=== PATIENT | male | born 1955 | race Caucasian/White ===

== ENCOUNTER 2016-06-27 15:41 | Emergency (ER) | payer MEDICARE, MEDICAID ==
[2016-06-27 16:15] VITALS: BP 100/81
--- NOTE | 2016-06-27 16:34 | UC ---
Skin Complaint HPI - HPI Summary HPI Summary: 61 YO M WITH SEVERE MR, RESIDENT OF A SENIOR CARE, BROUGHT IN BY STAFF FOR CONSULTATION DUE TO WHITE BUMPS ON HIS BILATERAL HANDS. STAFF MEMBER COMING ON DUTY (FEMALE) STATES THAT HE ALSO HASN'T BEEN ACTING QUITE HIMSELF LATELY AND WONDERS IF HE HAS A PROBLEM WITH HIS TEETH. STATES HE HAS MORE BAD BREATH LATELY, LIKE A DENTAL INFECTION. NO FEVER. PT IS NONVERBAL. ABLE TO WITHDRAW TO PAIN OR DISCOMFORT OR JUST DISLIKE OF BEING TOUCHED. - History of Current Complaint Chief Complaint: UCSkin Time Seen by Provider: 06/27/16 16:15 Stated Complaint: SKIN COMPLAINT Hx Obtained From: Patient - PT WITH SEVERE MR, ONLY ABLE TO GRUNT AND WITHDRAW HANDS, NONVERBAL, Family/Tanning Salon Attendant - CARETAKES FROM HIS SENIOR CARE (TWO FEMALES , BOTH PRESENT DUE TO CHANGE OF SHIFT AT 4PM) Onset/Duration: Sudden Onset, Lasting Hours - JUST NOTED TODAY BY PRISON GUARD SUPERVISOR, Still Present Timing: Constant Onset Severity: Mild Current Severity: Mild Pain Intensity: 0 Pain Scale Used: 0-10 Numeric Location: Hand (Right), Hand (Left) Aggravating: Nothing Alleviating: Nothing Associated Signs & Symptoms: Positive: Negative Related History: Other: - HX ECZEMA - Allergy/Home Medications Allergies/Adverse Reactions: Allergies Allergy/AdvReac Type Severity Reaction Status Date / Time No Known Allergies Allergy Verified 06/27/16 15:56 Review of Systems Constitutional: Other - "NOT QUITE HIMSELF" ENT: Other - BAD BREATH PER PRISON GUARD SUPERVISOR All Other Systems Reviewed And Are Negative: Yes - Comments Additional Review of Systems Comments: PT IS NONVERBAL, UNABLE TO ADDRESS ROS WITH PATIENT, ONLY THROUGH PRISON GUARD SUPERVISOR PMH/Surg Hx/FS Hx/Imm Hx Previously Healthy: No - SEVERE MR - Surgical History Surgical History: Yes Surgery Procedure, Year, and Place: cataract. septoplasty - Family History Known Family History: Positive: Other - PT WITH SEVERE MR, UNABLE TO PROVIDE FAMILY HISTORY - Social History Occupation: Disabled Lives: Prison Alcohol Use: None Substance Use Type: None Smoking Status (MU): Never Smoked Tobacco Physical Exam Triage Information Reviewed: Yes Appearance: Well-Appearing, No Pain Distress, Well-Nourished Vital Signs: Initial Vital Signs Temp 97.8 F 06/27/16 16:05 Resp 16 06/27/16 16:05 BP 100/81 06/27/16 16:05 ABSENT PULSE AND PULSE OX NOTED. MY AUSCULTATION OF PULSE IS 80 AND REGULAR Vital Signs Reviewed: Yes Eyes: Positive: Conjunctiva Clear ENT: Positive: Normal ENT inspection Dental Exam: Normal Neck: Positive: Supple, Nontender Respiratory: Positive: No respiratory distress Cardiovascular: Positive: RRR, Pulses Normal, Brisk Capillary Refill Musculoskeletal: Positive: Strength Intact, ROM Intact Neurological: Positive: Alert, Muscle Tone Normal Psychological: Positive: Other: - USUAL BEHAVIOR WITH STAFF AND WITH ME, PER STAFF Skin: Positive: significant lesion(s) - MULTIPLE WHITE, FIRM 2-3MM LESIONS ON BILAT HANDS. SCATTERED EXCORIATED PATCHES ON FOREARMS AND HANDS. NO RED STREAKS, NONTENDER, NO SIGN OF INFECTION, NO SIGN OF TRAUMA Course/Dx - Differential Diagnoses - Skin Complaint Differential Diagnoses: Cellulitis, Drug Rash, Eczema, Scabies, Tinea, Viral Exanthem, Other - WARTS - Diagnoses Provider Diagnoses: HAND LESIONS, POSSIBLE WARTS. ECZEMA Discharge - Discharge Plan Condition: Stable Disposition: HOME Prescriptions: Hydrocortisone 1% CREAM(NF) 1 applic TOPICAL TID #30 gm Patient Education Materials: Eczema (ED), Common Wart (ED) Referrals: Jus Chairez DO [Primary Care Provider] - Additional Instructions: See Consultation Report for additional written recommendations.
== END 2016-06-27 16:59 | disposition home or self-care (01) ==
LOC: UCCORT 15:41
DX: L98.9 Disorder of the skin and subcutaneous tissue, unspecified (principal); L30.9 Dermatitis, unspecified; F80.9 Developmental disorder of speech and language, unspecified; F72 Severe intellectual disabilities
CPT/HCPCS: 99212; G0463

== ENCOUNTER 2016-11-14 08:17 | Emergency (ER) | payer MEDICARE, MEDICAID ==
[2016-11-14 08:34] VITALS: BP 128/65
--- NOTE | 2016-11-14 09:02 | UC ---
Eye Complaint HPI - HPI Summary HPI Summary: BROUGHT BY STAFF MEMBER OF PENITENTI[facility] FOR EVALUATION OF GREEN DRAINAGE FROM BOTH EYES. NOT SURE HOW LONG HE HAS HAD IT. NO FEVER. HAS A MILD COUGH. SLIGHT RUNNY NOSE. - History of Current Complaint Chief Complaint: UCEye Stated Complaint: ALLERGY Time Seen by Provider: 11/14/16 08:52 Hx Obtained From: Family/Freelance Director Onset/Duration: Gradual Onset, Lasting Days, Still Present Timing: Constant Severity Initially: Moderate Severity Currently: Moderate Pain Scale Used: Adult Non Verbal Location of Injury: Conjunctiva Aggravating Factor(s): Nothing Alleviating Factor(s): Nothing Associated Signs And Symptoms: Positive: Drainage (Purulent). Negative: Fever - Allergies/Home Medications Allergies/Adverse Reactions: Allergies Allergy/AdvReac Type Severity Reaction Status Date / Time No Known Allergies Allergy Verified 11/14/16 08:29 PMH/Surg Hx/FS Hx/Imm Hx - Additional Past Medical History Additional PMH: MR, ECZEMA, AUTISTIC - Surgical History Surgical History: Yes Surgery Procedure, Year, and Place: cataract. septoplasty - Family History Known Family History: Positive: Other - PT WITH SEVERE MR, UNABLE TO PROVIDE FAMILY HISTORY. NONE PER STAFF - Social History Alcohol Use: None Substance Use Type: None Smoking Status (MU): Never Smoked Tobacco Review of Systems Constitutional: Negative Eyes: Drainage Respiratory: Cough Cardiovascular: Negative Gastrointestinal: Negative All Other Systems Reviewed And Are Negative: Yes Physical Exam Triage Information Reviewed: Yes Appearance: Well-Appearing, No Pain Distress, Well-Nourished Vital Signs: Initial Vital Signs Temp 98.1 F 11/14/16 08:21 Pulse 88 11/14/16 08:21 Resp 20 11/14/16 08:21 BP 128/65 11/14/16 08:21 Pulse Ox 98 11/14/16 08:21 Vital Signs Reviewed: Yes Eyes: Positive: Conjunctiva Inflamed, Discharge - PURULENT DRAINAGE BILATERALLY ENT: Positive: TMs normal - PARTIALLY OBSTRUCTED BY CERUMEN Neck: Positive: Supple, Nontender, No Lymphadenopathy Respiratory Exam: Normal Cardiovascular Exam: Normal Abdomen Description: Positive: Soft Musculoskeletal: Positive: No Edema Neurological: Positive: Alert Psychological: Positive: Other: - BASELINE BEHAVIOR Skin: Negative: rashes Eye Complaint Course/Dx - Course Course Of Treatment: CIPRO EYE DROPS DISPENSED FROM HERE TO USE EVERY 4 HRS X 5 DAYS. FOLLOW-UP WITH EYE DOCTOR IF NO IMPROVEMENT. - Differential Dx/Diagnosis Provider Diagnoses: BILATERAL CONJUNCTIVITIS Discharge - Discharge Plan Condition: Stable Disposition: HOME Prescriptions: Loratadine [Sm Loratadine] 10 mg PO DAILY #30 tab Patient Education Materials: Allergic Rhinitis (ED), Conjunctivitis (ED) Referrals: Jus Chairez DO [Primary Care Provider] - If Needed Additional Instructions: FOLLOW-UP WITH AN EYE DOCTOR IF NO IMPROVEMENT WITH EYE DROPS.
[2016-11-14] MEDS ORDERED: Ciprofloxacin 0.3% OPTH.SOL* 2.5 ML BTL BOTH EYES ONE (09:06)
== END 2016-11-14 09:35 | disposition home or self-care (01) ==
LOC: UCCORT 08:17
DX: H10.9 Unspecified conjunctivitis (principal); F72 Severe intellectual disabilities
CPT/HCPCS: 99212; A9270-GY; G0463

== ENCOUNTER 2016-11-29 08:30 | Emergency (ER) | payer MEDICARE, MEDICAID ==
[2016-11-29 08:57] VITALS: BP 134/77
--- NOTE | 2016-11-29 09:09 | UC ---
Skin Complaint HPI - HPI Summary HPI Summary: abrasion left knee x 5 days s/p fall 5 days ago , abrasion of the left knee, now the area is red, swollen, no drainage of the wound , no fever - History of Current Complaint Chief Complaint: UCLowerExtremity Time Seen by Provider: 11/29/16 08:47 Stated Complaint: LEFT KNEE INJURY Hx Obtained From: Family/Outsole Skiver Onset/Duration: Sudden Onset, Lasting Days - 5, Still Present Skin Exposure Onset/Duration: Worse Since: - past 2 days Timing: Constant Onset Severity: Mild Current Severity: Moderate Location: Discrete - left knee Character: Swelling, Redness, Raised, Painful Aggravating: Touch Alleviating: Nothing Associated Signs & Symptoms: Positive: Tenderness. Negative: Drainage, Red Streaks - Allergy/Home Medications Allergies/Adverse Reactions: Allergies Allergy/AdvReac Type Severity Reaction Status Date / Time No Known Allergies Allergy Verified 11/29/16 08:35 Home Medications: Home Medications Chlorpheniramine-Dm [Triaminic Cough & Runny N] 1 chw PO PRN 11/29/16 [History] Review of Systems Constitutional: Negative Eyes: Negative Respiratory: Negative Cardiovascular: Negative All Other Systems Reviewed And Are Negative: Yes PMH/Surg Hx/FS Hx/Imm Hx - Additional Past Medical History Additional PMH: metal retardation - Surgical History Surgical History: Yes Surgery Procedure, Year, and Place: cataract. septoplasty - Family History Known Family History: Positive: Other - PT WITH SEVERE MR, UNABLE TO PROVIDE FAMILY HISTORY. NONE PER STAFF - Social History Alcohol Use: None Substance Use Type: None Smoking Status (MU): Never Smoked Tobacco Physical Exam Triage Information Reviewed: Yes Appearance: No Pain Distress Vital Signs: Initial Vital Signs Temp 97.4 F 11/29/16 08:45 Pulse 81 11/29/16 08:45 Resp 18 11/29/16 08:45 BP 134/77 11/29/16 08:45 Pulse Ox 95 11/29/16 08:45 Vital Signs Reviewed: Yes Eyes: Positive: Conjunctiva Clear ENT: Positive: Normal ENT inspection Neck exam: Normal Respiratory: Positive: Chest non-tender, Lungs clear, Normal breath sounds Cardiovascular: Positive: RRR, No Murmur, Pulses Normal Musculoskeletal Exam: Normal Skin: Positive: Other - + abrasion of the left knee, + erythem , mild tenderness , mild swelling , no discharge Course/Dx - Diagnoses Provider Diagnoses: abrasion left knee. cellulitis left knee Discharge - Discharge Plan Condition: Stable Disposition: HOME Prescriptions: Amoxicillin/Clavulanate TAB* [Augmentin TAB 875*] 875 mg PO BID #20 tab Patient Education Materials: Cellulitis (ED), Abrasion (ED) Referrals: Jus Chairez DO [Primary Care Provider] - 7 Days
== END 2016-11-29 09:19 | disposition home or self-care (01) ==
LOC: UCCORT 08:30
DX: S80.212A Abrasion, left knee, initial encounter (principal); L03.116 Cellulitis of left lower limb; W19.XXXA Unspecified fall, initial encounter; Y93.9 Activity, unspecified; Y92.9 Unspecified place or not applicable
CPT/HCPCS: 99212; G0463

== ENCOUNTER 2017-10-24 08:54 | Emergency (ER) | payer MEDICARE, MEDICAID ==
[2017-10-24 09:25] VITALS: BP 133/82
--- NOTE | 2017-10-24 09:51 | UC ---
General HPI - HPI Summary HPI Summary: Patient is a resident of a snf and presents with an aide. Patient is restricted thickened liquids and has a history of pica. 2 days ago patient got some apple juice that he drank. He was coughing at the time of this. Patient has intermittent coughing since. This morning patient also got some more apple juice that he coughed. He reports the patient seems a little more agitated and has intermittent cough. No fevers or chills. No vomiting. No diarrhea. No increased work of breathing. No history of lung disease. Patient checked for possible aspiration pneumonia as he's had this in the past. Patient is nonverbal Medication list reviewed this visit patient has no known allergies - History of Current Complaint Chief Complaint: UCRespiratory Stated Complaint: COUGH Time Seen by Provider: 10/24/17 09:32 Hx Obtained From: Family/Office Professionals, Medical Records, Other: - pt nonverbal - aide Pain Intensity: 0 Associated Signs & Symptoms: Positive: Agitation - Allergy/Home Medications Allergies/Adverse Reactions: Allergies Allergy/AdvReac Type Severity Reaction Status Date / Time No Known Allergies Allergy Verified 10/24/17 09:03 Home Medications: Home Medications Loratadine 10 mg PO DAILY 10/24/17 [History Confirmed 10/24/17] PMH/Surg Hx/FS Hx/Imm Hx Previously Healthy: Yes GI/ History: Gastroesophageal Reflux Other Psychological History: nonverbal, MR, PICA - Surgical History Surgical History: Yes Surgery Procedure, Year, and Place: cataract. septoplasty - Family History Known Family History: Positive: Other - PT WITH SEVERE MR, UNABLE TO PROVIDE FAMILY HISTORY. NONE PER STAFF - Social History Occupation: Disabled Lives: Detention Alcohol Use: None Substance Use Type: None Smoking Status (MU): Never Smoked Tobacco Review of Systems Constitutional: Negative, Other - agitation Skin: Negative Respiratory: Cough All Other Systems Reviewed And Are Negative: No - Comments Additional Review of Systems Comments: level 5 caveat - pt nonverbal Physical Exam - Summary Physical Exam Summary: Vital Signs Reviewed: Yes alter, non verbal, cooperative, no distress Eyes: Conjunctiva Clear, MARA. EOM intact and full ENT: Hearing grossly normal TM x 2 clear, mmoist, uvula midline, no exudate, no erythema Neck: Positive: Supple Respiratory: Positive: No respiratory distress, No accessory muscle intermittent cough no w/r no retractions no rhonci Cardiovascular: RRR nl s1, s2 no m/r CBT <2 sec no m/r abd soft + BS nt/nd no guarding, no distension Musculoskeletal Exam: ALANIZ x 4 without difficulty Strength Intact, ROM Intact ambulatory without difficulty Neurological: Positive: Alert, pt at baseline per caregiver Psychological: Positive: Normal Response To Family Skin: Positive: no rash, no ecchymosis Triage Information Reviewed: Yes Vital Signs: Initial Vital Signs Temp 98.4 F 10/24/17 09:17 Pulse 103 10/24/17 09:17 Resp 14 10/24/17 09:17 BP 133/82 10/24/17 09:17 Pulse Ox 94 10/24/17 09:17 Diagnostics - Radiology No standard instances Xray Interpretation: No Acute Changes Radiology Interpretation Completed By: Radiologist Re-Evaluation - Re-Evaluation First Eval Comment: Review chest x-ray with caregiver. Patient without any is consistent with pneumonia on chest x-ray. However given patient's recent coughing episode after taking some liquids twice and somewhat increased agitation per staff will publicly start Augmentin. Recommend patient be rechecked on Thursday. Discussed clear return precautions with caregiver. States understanding agreement with plan. Forms for home complete. Patient to be discharged on Augmentin twice a day. Course/Dx - Course Course Of Treatment: H and presents for evaluation for possible aspiration pneumonia. Patient with a history of pica and is supposed to have thickened liquids. Patient 2 days ago had some apple juice coughing causing him to cough. Since this time patient with intermittent cough and some increased agitation per staff. Patient without documented fevers. This morning patient again got some apple juice and had a coughing episode. On exam patient's lungs are clear. Patient without any fevers. Patient is slightly low oxygenation level at 94% but no increased work of breathing or concern for respiratory distress. Will check a chest x-ray. Anticipate will treat prophylactically if xray neg. Caregiver in agreement and comfortable with plan - Differential Dx - Multi-Symptom Provider Diagnoses: acute cough. possible aspiration Discharge - Sign-Out/Discharge Documenting (check all that apply): Discharge/Admit/Transfer - Discharge Plan Condition: Stable Disposition: HOME Prescriptions: Amoxicillin/Clavulanate TAB* [Augmentin TAB 875*] 875 mg PO BID #20 tab Patient Education Materials: Acute Cough (ED) Referrals: Mihaela,Jus C, DO [Primary Care Provider] - Additional Instructions: The chest radiograph does not show signs of pneumonia, but the history in concerning for possible aspiration Mr. Max is being prescribed antibiotics for treatment of presumed aspiration Okay to use Tylenol as needed for fever It is recommended he be reassesed by his physician on Thursday. If he developed fevers, increased breathing rate, increased work of breathing (ribs sucking in and out), increased aggitation or any other concerns he should be taken to the emergency department for evaluation. - Billing Disposition and Condition Condition: STABLE Disposition: Home
--- NOTE | 2017-10-24 10:16 | RAD ---
INDICATION: Cough. Suspicion for fluid aspiration. COMPARISON: None. TECHNIQUE: Single AP view of the chest was obtained. FINDINGS: The heart and mediastinum exhibit normal size and contour. The lungs are grossly clear. There is no evidence of a large pleural effusion. Visualized bones are normal for the patient's age. IMPRESSION: No radiographic evidence for acute cardiopulmonary abnormality on this single AP view chest x-ray.
[2017-10-24] MEDS ORDERED: Amoxicillin/Clavulanate TAB* 875 MG PO ONE ×2 (10:23→10:29)
== END 2017-10-24 10:38 | disposition home or self-care (01) ==
LOC: UCCORT 08:54
DX: R05 Cough (principal); F50.89 Other specified eating disorder; R45.1 Restlessness and agitation
CPT/HCPCS: 71045; 99212; A9270-GY; G0463

== ENCOUNTER 2018-07-16 20:20 | Emergency (ER) | payer MEDICARE, MEDICAID ==
--- OUTSIDE RECORDS SUMMARY | 2018-07-16 20:29 | XMS REPORT ---
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 Vital Signs Vital Name Observation Time Observation Value Comments Body Weight 2017-12-17 00:00:00 177.0 kg BP Systolic 2017-12-17 00:00:00 132 mm[Hg] BP Diastolic 2017-12-17 00:00:00 92 mm[Hg] Body Temperature 2017-12-17 00:00:00 97.8 Ayse Heart Rate 2017-12-17 00:00:00 76 /min Respiratory Rate 2017-12-17 00:00:00 16 /min Procedures This patient has no known procedures. Reason for Referral This patient has no known reason for referral. Chief Complaint and Reason for Visit This patient event has no chief complaint or reason for visit specified. Results This patient has no known results. Assessments This patient has no known assessments.
--- OUTSIDE RECORDS SUMMARY | 2018-07-16 20:29 | XMS REPORT | Continuity of Care Document ---
:1955 External Reference #:[id number] Author Name Alfie Gibson M.D. Address [address] [facility] [address] [place] [address] Care Team Providers Name Role Phone Latonya Luna MD Primary Care Physician Unavailable Payers Date Identification Numbers Payment Provider Subscriber Policy Number: [id number] Medicare Idris Withers PayID: [id number] [address] [place] [address] Expires: 2018 Policy Number: [id number] Medicare Idris Withers PayID: [id number] [address] [place] [address] Policy Number: [id number] Medicaid Idris Withers PayID: [id number] [address] [place] [address] Advance Directives Description No Information Available Problems Date Description Provider Status Onset: 08/26/2015 Mental retardation Gerardo Rosales MD Active Onset: 08/28/2015 Adult health examination Gerardo Rosales MD Active Note: upper to D1 Aug 2015 Family History Date Family Member(s) Observation Comments Father due to GA () Father due to Hypertension () Mother due to Diabetes () Social History Type Date Description Comments Sex Unknown Lives With Assisted Living Home Environment Lives in half-way Occupation Disabled Work Status Disabled Tobacco Use Start: Unknown Never Smoked Cigarettes Smoking Status Reviewed: 06/16/18 Never Smoked Cigarettes ETOH Use Denies alcohol use Tobacco Use Start: Unknown Patient denies history of smoking Recreational Drug Use Denies Drug Use Allergies, Adverse Reactions, Alerts Description No Known Drug Allergies Medications Medication Date Status Form Strength Qnty SIG Indications Ordering Provider Hydrocodone-Catracho 02/11 Active Tablets 5-325mg 60tab 2 tabs by tabitha Smith s mouth every Mark, 4 hours as M.D. needed for pain. [place] Active Capsules 300mg take one Unknown Carbonate /0000 capsule by mouth twice a day Chlorpromazine Active Tablets 100mg 3 tabs by Unknown HCL /0000 mouth every morning, 2 tabs every hs Benefiber Active Powder as directed Unknown /0000 daily Colace Active Capsules 100mg 1 by mouth Unknown /0000 twice a day Ibuprofen Active Tablets 400mg 1 tab every Unknown /0000 6 hours as needed Kaopectate Active Suspension 262mg/15M 2 tablespoon Unknown /0000 L by mouth after each loose bm as needed Mylanta Active Suspension 200-200-2 1 tablespoon Unknown /0000 0mg/5ML by mouth every 4 hours as needed Docusate Sodium Active Capsules 100mg take 1 Unknown /0000 capsule by mouth twice daily as needed for constipation Olanzapine Active Tablets 15mg 1 tab qd Unknown /0000 Dispers Resource Active Packet Unknown Thickenup /0000 Bismuth Active Powder Unknown Subnitrate 0000 Fluocinonide Active Gel 0.05% Unknown /0000 Tinactin Active Aerosol 1% Unknown /0000 Hydrocortisone Active Cream 1% apply to Unknown /0000 affected area of eyebrow daily Triple Active Ointment Unknown Antibiotic + /0000 Pain Relief Claritin Active Capsules 10mg 1 by mouth Unknown /0000 every day Singulair Active Tablets 10mg 1 by mouth Unknown /0000 every day Miralax Active Powder 255gm with Unknown /0000 64 oz of what ever she wants to drink and drink it all Valproic Acid Active Capsules 250mg take 1 cap Unknown /0000 oral three times a day Tamsulosin HCL Active Capsules 0.4mg 1 by mouth Unknown /0000 every day at bedtime Zyprexa Hx Tablets 15mg 1 by mouth Unknown /0000 every night - 07/13 Acetaminophen 8 00 Hx Tablets 650mg as needed Unknown Hour /0000 - 08/11 Robitussin DM Hx Syrup 100-10mg/ as needed Unknown /0000 5ML cough - 07/13 Clorazepate Hx Tablets 3.75mg 1 by mouth Unknown Dipotassium /0000 three times - a day as 07/13 anxiety reference #: [id number] Immunizations Description No Information Available Vital Signs Date Vital Result Comment 06/18/2018 8:46am BP Systolic 146 mmHg BP Diastolic 93 mmHg Body Temperature 97.7 F Heart Rate 86 /min Respiratory Rate 16 /min 06/14/2018 8:44am BP Systolic 129 mmHg BP Diastolic 76 mmHg Heart Rate 61 /min Respiratory Rate 16 /min Weight 173.12 lb O2 % BldC Oximetry 97 % 02/11/2017 1:22pm BP Systolic Sitting Left Arm 134 mmHg BP Diastolic Sitting Left Arm 81 mmHg Heart Rate 79 /min Height 67 inches 5'7" Weight 181.00 lb BMI (Body Mass Index) 28.3 kg/m2 BSA (Body Surface Area) 1.94 m2 [place] body weight in kilograms 67 kg 07/14/2016 1:41pm BP Systolic Sitting Left Arm 123 mmHg BP Diastolic Sitting Left Arm 88 mmHg Heart Rate 90 /min Weight 180.50 lb 09/21/2015 4:02pm BP Systolic 140 mmHg BP Diastolic 80 mmHg Heart Rate 80 /min Respiratory Rate 18 /min Weight 163.00 lb O2 % BldC Oximetry 91 % Ra Results Test Date Facility Test Result H/L Range Note Order 02/11/2017 [facility] 2, Inline <pending> [address] [place] [address] Medium [phone] Laboratory test 08/26/2015 [facility] Esophageal See Note [address] [place] [address] [phone] 1 OPERATION/PROCEDURE Removal of foreign body, esophagus DIAGNOSIS: "ESOPHAGUS, BIOPSY": - COLUMNAR-MUCOSA WITH CHRONIC INFLAMMATION. - NEGATIVE FOR INTESTINAL METAPLASIA AND DYSPLASIA. EP./clf 1417 GROSS Received in formalin in a properly labeled container with the patient's name and accession number designated, "ESOPHAGEAL BIOPSIES". The specimen consists of multiple pieces of [place], soft rubbery tissue measuring 0.4 x 0.3 x 0.3 cm. in aggregate. Submitted entirely, one cassette. CC/clf PRE OPERATIVE DIAGNOSIS Foreign body esophagus REVIEW CODE CODE: I Signed Electronically signed Kelley OLIVERA MD [id number] Procedures Date Code Description Status 06/18/2018 94369 Measurement Post Voiding Residual Urine By Completed Ultrasound,Non-Imaging 09/16/2017 01234 EKG Interpretation And Report Only Completed 03/16/2017 86653 Radiology, Foot, Complete-3 Views Completed 03/03/2017 05233 Radiology, Foot, Complete-3 Views Completed 02/11/2017 05044 FX Metatarsal-Closed W/O Completed 09/12/2016 99619 EKG Interpretation And Report Only Completed 08/11/2016 44500 Radiology, Toe(S) 2 Views Completed 08/11/2016 53347 Radiology, Toe(S) 2 Views Completed 07/14/2016 31286 Fracture Great toe closed treatment w/0 manipulation Completed 08/26/2015 82549 EGD With Removal Of Foreign Body Completed 08/26/2015 79810 EGD With Biopsy Completed 05/24/2015 47323 EKG Interpretation And Report Only Completed 04/07/2014 11569 EKG Interpretation And Report Only Completed 01/04/2013 76824 EKG Interpretation And Report Only Completed 12/03/2011 55927 EKG Interpretation And Report Only Completed 07/03/2010 04495 EKG Interpretation And Report Only Completed 05/04/2009 12477 EKG Interpretation And Report Only Completed Encounters Type Date Location Provider Dx Diagnosis Office Visit 06/18/2018 Urology Dami Corrales R33.9 Retention of urine, 8:30a R., PA unspecified Office Visit 06/14/2018 Urology Dami Corrales R33.9 Retention of urine, 8:30a VICKI Valles unspecified Office Visit 09/21/2015 Gerardo James MD Z12.11 Encounter for 3:30p screening for malignant neoplasm of colon Office Visit 08/26/2015 Gerardo James MD T18.108A Unsp foreign body in 2:34p esophagus causing oth injury, init 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 Reviewed with the staff any change in voiding symptoms. We'llfollow up in 3 months with a postvoid residual
[2018-07-16 20:51] VITALS: BP 133/83
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
== END 2018-07-16 22:17 | disposition home or self-care (01) ==
LOC: UCCORT 20:20
DX: S80.212A Abrasion, left knee, initial encounter (principal); S80.211A Abrasion, right knee, initial encounter; W19.XXXA Unspecified fall, initial encounter; Y92.9 Unspecified place or not applicable
CPT/HCPCS: 99212; G0463

== ENCOUNTER 2018-10-30 18:02 | Emergency (ER) | payer MEDICARE, MEDICAID ==
--- OUTSIDE RECORDS SUMMARY | 2018-10-30 18:15 | XMS REPORT | Continuity of Care Document ---
:1955 External Reference #:[id number] Author Name Latonya Luna MD Address [address] [place] [address] Care Team Providers Name Role Phone Latonya Luna MD Care Team Information [employer] Unavailable Payers Date Identification Numbers Payment Provider Subscriber Effective: 1989 Policy Number: [id number] Medicare Part B Idris Withjhon PayID: [id number] [address] [place] [address] Policy Number: [id number] Medicaid Idris Withjhon PayID: [id number] [address] [place] [address] Problems Active Problems Provider Date Constipation Jus Chairez DO Onset: 02/08/2007 Personality disorder Jus Chairez DO Onset: 02/08/2007 Mental retardation Jus Chairez DO Onset: 02/08/2007 Pica Jus Chairez DO Onset: 02/08/2007 Atopic dermatitis Jus Chairez DO Onset: 02/08/2007 Hearing loss Jus Chairez DO Onset: 02/08/2007 History of infectious disease of central Latonya Luna MD Onset: 2017 nervous system Chronic obstructive pulmonary disease with Latonya Luna MD Onset: 2018 acute lower respiratory infection Intellectual disability Latonya Luna MD Onset: 10/29/2018 Autistic disorder Latonya Luna MD Onset: 03/29/2018 Resolved Problems Fatigue Onset: 12/29/2014 Resolved: 01/30/2016 Toothache Onset: 12/29/2014 Resolved: 01/29/2015 Family History Date Family Member(s) Observation Comments Father Hypertension Father CAD Mother Diabetes, Adult Children None Siblings 1 First Brother No Current Problems Social History Type Date Description Comments Sex Unknown Marital Status Single Lives With lives in group [facility] Aliza REBECCA Occupation Disabled ETOH Use Denies alcohol use Tobacco Use Start: Unknown Patient has never smoked Recreational Drug Use Denies Drug Use Smoking Status Reviewed: 03/29/18 Patient has never smoked Allergies, Adverse Reactions, Alerts Description No Known Drug Allergies Medications Active Medications SIG Qnty Indications Ordering Provider Date Amoxicillin/Clavulanat Every 12 Hours 10tabs J69.0 Unknown 10/27/2018 e Potassium 875-125mg Tablets Vanicream apply to whole 90gm L20.82 Latonya Luna, 10/18/2018 Cream body twice MD daily Claritin 1 by mouth 30caps J30.9 Latonya Luna, 04/30/2018 10mg Capsules every day L20.82 L20.9 Resource Thickenup daily as directed 6399ml F79 Latonya Luna MD 04/16 Thickened Water Honey for honey thick Consistency fluids Liquid R13.10 Peg 3350 1 capful daily for 1530units K59.00 Latonya Luna, 03/25/2018 Powder constipation with 8 MD oz fluid after dinner, don't take with other meds Montelukast Sodium take 1 tablet by 30tabs L20.82 Latonya Luna, 2017 mouth at bedtime 10mg Tablets Benefiber give 2 teaspoonfuls 500gm K59.00 Latonya Luna, 11/03/2017 Powder mixed in 8 oz fluid MD & drink by mouth 3 times a day Fish Oil take 1 capsule by 60caps L20.82 Latonya Luna, 06/24/2017 1000mg mouth two times a MD Capsules day Docqlace take 1 capsule by 60caps K59.00 Latonya Luna, 08/25/2016 100mg mouth two times a MD Capsules day Mupirocin Unknown 2% Ointment Triamcinolone to lower leg rash 45gm L20.82 Latonya Luna, Acetonide once daily 0.1% Cream [address] Carbonate take 1 capsule by F60.9 Unknown mouth twice daily 150mg Capsules with water/food F84.0 Flomax 0.4mg 1 by mouth every day Unknown Capsules Depakote 1 by mouth tid F60.9 Slaven, Travis 250mg Tablets F79 F84.0 Chlorpromazine HCL 2 po bid F60.9 Slaven, Travis 100mg Tablets Bismuth 2tablespoon po as Unknown needed after each loose bm Triple Antibiotic to be placed on Unknown Ointment minor scratches as needed Tolnaftate between toes daily Unknown [place] Tussin 2 tsp q 6 hours prn Unknown cough without fever Ibuprofen 200 2 po q 4 hours as Unknown 200mg Tablets needed for pain up to 5 days Milk Of Magnesia give 15 milliliters 355ml K59.00 Mihaela, on day 3 and 4 if no Jus, DO 1200mg/15ML Suspension bm. Mylanta 1 tablespoon by 1Bottle Unknown [id number]/5ML mouth every 4 hours Suspension minor stomach upset. Kaopectate 2 tablespoons PO 1Bottle R19.7 Unknown 262mg/15ML after each loose Suspension stool. Tinactin spray between toes 150gm B35.3 Cheryl, 1% Aerosol daily MD Latonya Kerasal apply to calloused 1Tube L20.9 Cheryl, 5-10% Ointment areas every other MD Latonya day after bath L20.82 Olanzapine 15mg Tablets 1 PO qd 30Tabs F60.9 Unknown History Medications Vanicream apply to whole 3units L20.82 Latonya Luna, 10/18/2018 - Bar body twice daily, 10/18/2018 discon't 10/18/2018 Prednisone 2 po daily for 3 6tabs J44.0 Unknown 10/04/2018 - 20mg days 10/07/2018 Tablets Oseltamivir 1 by mouth every 10caps Latonya Luna, 06/25/2018 - Phosphate day 07/05/2018 75mg Capsules Amoxicillin/Clavul 1 by mouth twice a 20tabs J01.90 Latonya Luna, - anate Potassium day 06/18/2018 875-125mg Tablets Resource Thickenup use as directed 176ml F79 Latonya Luna, 04/16/2018 - Thickened Water 176oz/22cans per 04/16/2018 month consistency Liquid - honey thick R13.10 Loratadine 1 by mouth 90caps J30.9 Latoyna Luna MD 02/10/2018 - 10mg every day 04/30/2018 Capsules L20.82 L20.9 Augmentin 1 by mouth twice a Unknown 10/27/2017 - 875-125mg day x 10 days 11/06/2017 Tablets Doxycycline Hyclate 1 by mouth twice a 20tabs L03.116 Cheryl 2017 - day MD Latonya 07/04/[address] Amaya apply to torso and 454units L20.9 Cheryl, 06/24/2017 - Cream extremities 3 times MD Latonya 10/07/2018 a day, tobin after showers L20.82 Fluocinonide apply to rash on 180units L20.9 Latonya Luna, 06/24/2017 - 0.05% extremities and 09/30/2018 Ointment trunk twice daily and as needed L20.82 Hydrocortisone apply to rash on 28.350gm R21 Cheryl, 05/20/2017 - 2.5% LEFT leg twice MD Latonya 06/23/2017 Ointment daily Clobetasol apply to LEFT leg 30gm R21 Mihaela, 05/01/2017 - Propionate area twice a day DO Jus 05/19/2017 0.05% until rash Cream resolved Ra Nutritional Thicken up, honey 1422ml Cheryl, 04/08/2017 - Supplement thick consistency MD Latonya 05/19/2017 Liquid Eucerin Unscented Apply To Torso 442units L20.82 Mihaela, 02/24/2017 - And Extremities 3 DO Jus 06/24/2017 Cream 16Oz Times A Day Goodsense Pain one by mouth q4 [facility], 02/10/2017 - Relief Extra hrs. as needed DO Jus 05/19/2017 Strength mdd - 3 grams per 500mg day Tablets Ciprodex 4 drops RIGHT ear 15ml H62.41 Mihaela, 12/19/2016 - 0.3-0.1% three times a day DO Jus 05/19/2017 Suspension x 7 days Amoxicillin/Clavulan 1 by mouth twice 20tabs L03.811 [facility], 12/19/2016 - ate Potassium a day DO Jus 03/27/2017 500-125mg Tablets Tamiflu 1 by mouth every 10caps Luna, 09/13/2016 - 75mg Capsules day MD Latonya 09/23/2016 Amoxicillin/Clavulan 1 by mouth twice 20tabs J01.90 [facility], 08/27/2016 - ate Potassium a day DO Jus 12/05/2016 500-125mg Tablets Hydrocerin apply to torso 454gm L20.9 [facility], 03/18/2016 - Cream and extremities 3 DO Jus 05/19/2017 times a day Benefiber give 2 500units K59.00 Tiff, 03/10/2016 - Powder teaspoonfuls MD Latonya 11/03/2017 17.6Oz. mixed in 8 oz fluid & drink by mouth 3 times a day Q-Pap Take 2 Tablets 100tabs [facility], 12/13/2015 - 325mg Tablets (650MG) By Mouth DO Jus 05/19/2017 Every 4 Hours as Needed For Pain Or Fever >100 Or Headache [facility] *Max Daily Dose: Docqlace Take 1 Capsule By 60caps Mihaela, 09/03/2015 - 100mg Mouth Two Times A DO Jus 11/12/2015 Capsules Day Aller-Chlor take 1 tablet by 90tabs J30.9 Tiff, 09/03/2015 - 4mg mouth every 4 MD Latonya 02/10/2018 Tablets hours as needed for nasal drainage *maxdaily dose: 6 tablets Prednisone 4 by mouth every QS R21 [facility], 07/24/2015 - 10mg d x 3 days then 3 Jus, DO 07/27/2015 Tablets by mouth every d x 3 then 2 by mouth every d x 3 then 1 by mouth every d x 3 then stop Equate Advanced apply to rash tid 14Oz Mihaela, 07/24/2015 - Healing Ointment DO Jus 05/19/2017 Resource use as directed 176units F79 Cheryl, 02/02/2015 - Thickenup(8=8Oz Can) 176oz/22cans per MD Latonya 04/16/2018 month consistency - honey thick R13.10 Penicillin V Every 6 Hours 40tabs Unknown 12/29/2014 - Potassium 03/16/2015 500mg Tablets Resourse Thicken Up use as directed. 25Cans Mihaela, 07/19/2014 - 8Oz dx: 787.24 DO Jus 03/16/2015 Amoxicillin/Clavulana 1 by mouth every 20tabs 465.9 Digiovanna, 2014 - te Potassium 12 hours for 10 Cinthia, [employer] 07/06/2014 875-125mg days Tablets Clobetasol Propionate apply to area bid 60gm Mihaela, 09/04/2011 - Jus, DO 06/26/2014 0.05% Cream Clobetasol Propionate apply to scalp 50ml Mihaela, 09/04/2011 - bid x 2 weeks. DO Jus 06/26/2014 0.05% Solution Docusate Sodium 1 by mouth twice 60caps K59.00 Mihaela, 06/27/2010 - 100mg a day Jus, 08/25/2016 Capsules Guaifenesin DM 1 po bid 20tabs J06.9 Mihaela, 05/30/2010 - 600-30mg Jus DO 05/19/2017 Tablets ER 12HR Clotrimazole/Betameth apply to rash bid 60gm Mihaela, 02/12/2009 - asone Dipropionate Jus, DO 06/26/2014 Cream Carbamoxide Ear Drops 5 gtts Both Ears 30ml Mihaela, 05/31/2007 - bid x 10 Days For DO uJs 06/26/2014 6.5% Solution Ear Wax Ibuprofen 1 po tid 90tabs Miheala, 08/16/2004 - 400mg Tablets Jus, DO 05/18/2014 Ventolin HFA Inhale Two Puffs J44.0 Unknown - By Mouth Every 4 10/08/2018 108(90Base) mcg/Act To 6 Hours as Aerosol Needed For Shortness Of Breath Vanicream apply to whole 3units L20.82 Cheryl, - Bar body twice daily MD Latonya 10/18/2018 Vanicream bid L20.82 Pieretti, - Cream [place] 09/30/2018 L20.9 Triamcinolone apply to affected L20.82 Latonya Luna, - Acetonide area sparingly 09/30/2018 0.1% Cream twice a day as needed L20.9 Mupirocin apply to affected Unknown - 2% Ointment area twice a day 10/07/2018 Buspirone HCL 1 by mouth twice a Unknown - 15mg day 03/25/2018 Tablets Buspirone HCL 15 MG qd Unknown - 5mg 07/08/2017 Tablets Fluocinonide apply to rashy 120gm L20.9 Cheryl, - 0.05% areas on torso and MD Latonya 06/24/2017 Cream extremities twice daily prn L20.82 Benefiber Drink Mix 3 Times Daily Unknown - 05/18/2014 Packet Hydrocortisone Plus as Needed L20.9 Unknown - 1% 03/18/2016 Cream Dextromethorphan-Guai as Needed prn Cough Unknown - fenesin 05/18/2014 10-100mg/5ML Solution Acetaminophen Every 4 To 6 HRS Unknown - 325mg 04/03/2015 Tablets Milk Of Magnesia 15cc PO qd for Unknown - 7.75% constipation prn 05/18/2014 Suspension Acetaminophen ER po q4h prn for [place] OTC Unknown - 650mg or temp >100 12/13/2015 Tablets ER Resource Thickenup Unknown - Thickened Juice Honey 03/16/2015 Consistency Liquid Bacitracin apply to rt lower samples Unknown - 500Unit/GM leg bid for 1 03/16/2015 Ointment month. Fluocinonide-E apply to affected 60gm Unknown - 0.05% area as needed 04/04/2015 Cream Benefiber 2 tablespoon in 8 930gm K59.00 Unknown - 2TSP Powder oz of fluid by 03/10/2016 mouth three times a day Chlorpromazine HCL 2 pill by mouth bid F60.9 Unknown - 05/22/[address] Carbonate 1 PO bid F60.9 Slaven, Travis - 300mg 10/08/2018 Capsules Clonazepam 1 PO Q3 HRS prn - Unknown - 0.25mg Agitation 05/18/2014 Tablets Dispers Immunizations CPT Code Status Date Vaccine Reaction Lot # [id number] Given 05/03/2018 Tdap (Adacel) Ages 7 And Above Only 35030 Given 03/16/2018 Influenza Virus Vaccine,Quadrivalent,Split,Pr eserv Free, 0.5mL,Im Q2037 Given 04/10/2017 Fluv[place]in Immunization Given at [facility] [place] [address] Given 03/27/2017 Pneumococcal 23 Immunization Im inj completed, Pt [id number] Adult Or Immunosuppressed tolerated well Patient Q2037 Given 03/22/2016 Fluvirin Immunization Given At Pharmacy [facility] 80645 Given 03/18/2016 Prevnar 13 Pneumococal Im inj completed, Pt [id number] Conjugate Vaccine tolerated well 31392 Given 02/21/2013 Afluria Or Fluvirin Flu Vac Intramuscular 14139 Given 01/22/2012 Afluria Or Fluvirin Flu Vac Intramuscular 09674 Given 02/17/2011 Afluria Or Fluvirin Flu Vac Intramuscular 93002 Given 02/14/2010 Afluria Or Fluvirin Flu Vac Intramuscular 96616 Given 02/12/2009 Tdap (Adacel) Ages 7 And Above Only 55769 Given 03/09/2008 Afluria Or Fluvirin Flu Vac Intramuscular 51106 Given 03/17/2007 Afluria Or Fluvirin Flu Vac Intramuscular 79789 Given 04/06/2006 Afluria Or Fluvirin Flu Vac Intramuscular 78209 Given 04/03/2005 Afluria Or Fluvirin Flu Vac Intramuscular 72763 Given 04/03/2005 Afluria Or Fluvirin Flu Vac Intramuscular 05663 Given 03/28/2003 Afluria Or Fluvirin Flu Vac Intramuscular 44226 Refused 03/29/2018 Shingrix (Shingles) Zoster Vaccine can get at pharmacy HZV, Recombinant, Subunit, Adj Vital Signs Date Vital Result Comment 10/29/2018 10:28am Body Temperature 98.5 F Weight 176.00 lb Heart Rate 80 /min BP Systolic 114 mmHg BP Diastolic 66 mmHg Respiratory Rate 18 /min Height 67 inches 5'7" O2 % BldC Oximetry 95 % BMI (Body Mass Index) 27.6 kg/m2 10/08/2018 3:21pm Body Temperature 98.4 F Weight 180.00 lb Heart Rate 82 /min BP Systolic 116 mmHg BP Diastolic 68 mmHg Respiratory Rate 18 /min Height 67 inches 5'7" O2 % BldC Oximetry 97 % BMI (Body Mass Index) 28.2 kg/m2 09/27/2018 11:00am Weight 176.00 lb Heart Rate 84 /min BP Systolic 114 mmHg BP Diastolic 66 mmHg Respiratory Rate 16 /min Height 67 inches 5'7" BMI (Body Mass Index) 27.6 kg/m2 08/16/2018 1:22pm Body Temperature 97.6 F Weight 178.00 lb Heart Rate 87 /min BP Systolic 112 mmHg BP Diastolic 68 mmHg Respiratory Rate 16 /min Height 67 inches 5'7" O2 % BldC Oximetry 93 % Ra BMI (Body Mass Index) 27.9 kg/m2 06/08/2018 4:03pm Weight 175.00 lb Heart Rate 82 /min BP Systolic 120 mmHg BP Diastolic 70 mmHg Respiratory Rate 16 /min Height 67 inches 5'7" O2 % BldC Oximetry 96 % Ra BMI (Body Mass Index) 27.4 kg/m2 05/10/2018 9:29am Weight 178.12 lb Heart Rate 80 /min BP Systolic 130 mmHg BP Diastolic 80 mmHg Respiratory Rate 16 /min Height 67 inches 5'7" BMI (Body Mass Index) 27.9 kg/m2 03/29/2018 11:21am Body Temperature 97.1 F Weight 178.00 lb Heart Rate 78 /min BP Systolic 118 mmHg BP Diastolic 76 mmHg Respiratory Rate 16 /min Height 67 inches 5'7" BMI (Body Mass Index) 27.9 kg/m2 12/11/2017 1:10pm Body Temperature 96.5 F Weight 179.00 lb Heart Rate 76 /min BP Systolic 122 mmHg BP Diastolic 68 mmHg Respiratory Rate 18 /min Height 67 inches 5'7" 03/27/17 BMI (Body Mass Index) 28.0 kg/m2 10/27/2017 11:31am Body Temperature 96.0 F Weight 171.00 lb Heart Rate 84 /min BP Systolic 112 mmHg BP Diastolic 76 mmHg Respiratory Rate 18 /min Height 67 inches 5'7" 03/27/17 O2 % BldC Oximetry 94 % ra BMI (Body Mass Index) 26.8 kg/m2 09/11/2017 10:00am Weight 176.00 lb Heart Rate 80 /min BP Systolic 112 mmHg BP Diastolic 74 mmHg Respiratory Rate 18 /min Height 67 inches 5'7" 03/27/17 BMI (Body Mass Index) 27.6 kg/m2 07/08/2017 4:03pm Body Temperature 97.3 F Weight 180.00 lb Heart Rate 81 /min BP Systolic 120 mmHg BP Diastolic 74 mmHg Respiratory Rate 16 /min Height 67 inches 5'7" 03/27/17 O2 % BldC Oximetry 98 % Ra BMI (Body Mass Index) 28.2 kg/m2 06/24/2017 9:15am Body Temperature 96.8 F Weight 181.00 lb Heart Rate 84 /min BP Systolic 128 mmHg BP Diastolic 84 mmHg Respiratory Rate 18 /min Height 67 inches 5'7" 03/27/17 BMI (Body Mass Index) 28.3 kg/m2 06/10/2017 8:33am Weight 179.00 lb Heart Rate 76 /min BP Systolic 130 mmHg BP Diastolic 80 mmHg Respiratory Rate 18 /min Height 67 inches 5'7" 03/27/17 BMI (Body Mass Index) 28.0 kg/m2 05/20/2017 11:36am Weight 178.00 lb Heart Rate 76 /min BP Systolic 128 mmHg BP Diastolic 64 mmHg BP Systolic Sitting 130 mmHg hr 85 BP Diastolic Sitting 80 mmHg hr 85 BP Systolic Standing 126 mmHg hr 90 BP Diastolic Standing 80 mmHg hr 90 Respiratory Rate 16 /min Height 67 inches 5'7" 03/27/17 BMI (Body Mass Index) 27.9 kg/m2 05/01/2017 9:22am Weight 181.19 lb Heart Rate 78 /min BP Systolic 128 mmHg BP Diastolic 80 mmHg Respiratory Rate 18 /min Height 67 inches 5'7" 03/27/17 BMI (Body Mass Index) 28.4 kg/m2 03/27/2017 10:23am Body Temperature 97.8 F tympanic Weight 177.38 lb Heart Rate 76 /min BP Systolic 132 mmHg BP Diastolic 92 mmHg Respiratory Rate 18 /min Height 67 inches 5'7" 03/27/17 BMI (Body Mass Index) 27.8 kg/m2 02/10/2017 1:43pm Weight 184.00 lb Per pt's aide Heart Rate 80 /min BP Systolic 130 mmHg BP Diastolic 80 mmHg Respiratory Rate 18 /min Height 67 inches 5'7" BMI (Body Mass Index) 28.8 kg/m2 12/19/2016 11:02am Body Temperature 97.7 F tympanic Weight 175.00 lb Heart Rate 76 /min BP Systolic 120 mmHg BP Diastolic 76 mmHg Respiratory Rate 18 /min Height 67 inches 5'7" BMI (Body Mass Index) 27.4 kg/m2 12/05/2016 9:06am Body Temperature 98.9 F Weight 180.00 lb BP Systolic 112 mmHg BP Diastolic 72 mmHg Height 67 inches 5'7" BMI (Body Mass Index) 28.2 kg/m2 09/25/2016 1:57pm Weight 180.00 lb Heart Rate 76 /min BP Systolic 120 mmHg BP Diastolic 80 mmHg Respiratory Rate 18 /min Height 67 inches 5'7" BMI (Body Mass Index) 28.2 kg/m2 08/27/2016 11:03am Body Temperature 97.8 F Weight 177.25 lb Heart Rate 84 /min BP Systolic 126 mmHg BP Diastolic 78 mmHg Respiratory Rate 18 /min Height 67 inches 5'7" O2 % BldC Oximetry 94 % On room air BMI (Body Mass Index) 27.8 kg/m2 07/11/2016 9:01am Weight 112.38 lb BP Systolic 82 mmHg Respiratory Rate 18 /min 07/03/2016 8:47am Weight 184.00 lb With Shoes, With Jacket Heart Rate 78 /min BP Systolic 122 mmHg BP Diastolic 60 mmHg Respiratory Rate 24 /min 03/18/2016 3:53pm Weight 179.00 lb BP Systolic 102 mmHg BP Diastolic 60 mmHg Height 67 inches 5'7" BMI (Body Mass Index) 28.0 kg/m2 02/26/2016 2:37pm Body Temperature 97.6 F Weight 179.00 lb BP Systolic 130 mmHg BP Diastolic 52 mmHg 02/06/2016 9:48am Weight 175.25 lb Per Staff BP Systolic 110 mmHg BP Diastolic 56 mmHg Height 67 inches 5'7" Per Staff 02/05/16 BMI (Body Mass Index) 27.4 kg/m2 11/12/2015 1:03pm Body Temperature 96.9 F BP Systolic 122 mmHg BP Diastolic 72 mmHg Respiratory Rate 18 /min 08/27/2015 4:21pm Weight 180.00 lb 07/24/2015 10:38am Weight 177.06 lb Heart Rate 72 /min BP Systolic 126 mmHg BP Diastolic 80 mmHg Respiratory Rate 18 /min 04/06/2015 9:06am Weight 179.00 lb BP Systolic 124 mmHg BP Diastolic 74 mmHg Respiratory Rate 18 /min 03/16/2015 9:03am Weight 179.00 lb Heart Rate 72 /min BP Systolic 138 mmHg BP Diastolic 88 mmHg Respiratory Rate 18 /min 01/05/2015 10:58am Weight 178.00 lb Heart Rate 84 /min BP Systolic 118 mmHg BP Diastolic 48 mmHg Respiratory Rate 24 /min 10/02/2014 2:54pm Weight 181.00 lb Heart Rate 82 /min BP Systolic 126 mmHg BP Diastolic 70 mmHg Respiratory Rate 18 /min 06/26/2014 4:03pm Body Temperature 97.3 F Weight 185.00 lb BP Systolic 126 mmHg BP Diastolic 80 mmHg Respiratory Rate 20 /min 06/15/2014 3:14pm Body Temperature 97.9 F Weight 184.00 lb Heart Rate 82 /min BP Systolic 112 mmHg BP Diastolic 70 mmHg Respiratory Rate 24 /min O2 % BldC Oximetry 98 % Ra 03/27/2014 3:56pm Heart Rate 82 /min BP Systolic 128 mmHg BP Diastolic 74 mmHg Respiratory Rate 18 /min 02/23/2014 9:08am Weight 187.25 lb 02/21/2013 9:02am Body Temperature 96.8 F Weight 179.00 lb Heart Rate 80 /min 72 Height 69 inches 5'9" 02/19/2012 10:34am Weight 170.00 lb BP Systolic 128 mmHg PT Not Cooperative. BP Diastolic 0 mmHg PT Not Cooperative. 09/04/2011 1:33pm Weight 174.00 lb Heart Rate 66 /min BP Systolic 124 mmHg BP Diastolic 80 mmHg Respiratory Rate 18 /min 02/17/2011 10:24am Weight 174.00 lb BP Systolic 118 mmHg BP Diastolic 62 mmHg 11/11/2010 8:52am Body Temperature 97.9 F Weight 174.00 lb Heart Rate 80 /min BP Systolic 130 mmHg BP Diastolic 80 mmHg Respiratory Rate 18 /min 10/04/2010 3:17pm BP Systolic 112 mmHg Very Difficult To Hear. BP Diastolic 68 mmHg Very Difficult To Hear. 05/30/2010 11:07am Weight 178.00 lb BP Systolic 112 mmHg BP Diastolic 80 mmHg 02/14/2010 10:39am Weight 178.00 lb BP Systolic 126 mmHg BP Diastolic 74 mmHg 11/14/2009 8:58am Weight 183.00 lb BP Systolic 130 mmHg BP Diastolic 88 mmHg Respiratory Rate 20 /min 10/02/2009 4:34pm Weight 177.00 lb Heart Rate 72 /min BP Systolic 120 mmHg BP Diastolic 78 mmHg Respiratory Rate 16 /min 02/12/2009 10:27am Weight 177.00 lb Per Ramp Agent BP Systolic 108 mmHg BP Diastolic 72 mmHg 10/02/2008 3:27pm Weight 170.00 lb Per Staff At Home 09/15/08. BP Systolic 112 mmHg BP Diastolic 78 mmHg 09/19/2008 1:47pm Weight 178.31 lb Heart Rate 72 /min BP Systolic 128 mmHg LEFT BP Diastolic 88 mmHg LEFT Respiratory Rate 15 /min 05/15/2008 2:07pm Weight 179.00 lb Heart Rate 72 /min BP Systolic 140 mmHg BP Diastolic 80 mmHg Respiratory Rate 16 /min 05/08/2008 10:10am Weight 179.00 lb BP Systolic 134 mmHg BP Diastolic 90 mmHg 05/05/2008 1:28pm Body Temperature 96.6 F Weight 188.00 lb Heart Rate 76 /min BP Systolic 140 mmHg BP Diastolic 100 mmHg Respiratory Rate 16 /min 03/21/2008 11:40am Weight 181.00 lb BP Systolic 126 mmHg BP Diastolic 88 mmHg 12/15/2007 9:37am Weight 178.00 lb Per House Heart Rate 84 /min BP Systolic 144 mmHg BP Diastolic 90 mmHg Respiratory Rate 18 /min 07/02/2007 11:22am Weight 182.00 lb BP Systolic 120 mmHg PT Aggitated Difficulty Toget Accurate Read BP Diastolic 70 mmHg PT Aggitated Difficulty Toget Accurate Read 02/08/2007 9:07am Weight 169.31 lb 12/16/06 Per Ramp Agent. BP Systolic 132 mmHg BP Diastolic 82 mmHg 03/06/2006 10:06am Weight 180.00 lb Heart Rate 72 /min BP Systolic 138 mmHg BP Diastolic 68 mmHg Respiratory Rate 18 /min 02/05/2006 9:02am Weight 182.00 lb Heart Rate 78 /min BP Systolic 122 mmHg Difficult To Hear. BP Diastolic 72 mmHg Difficult To Hear. Respiratory Rate 24 /min 01/27/2005 9:56am Weight 177.00 lb Heart Rate 72 /min Reg BP Systolic 130 mmHg LEFT BP Diastolic 100 mmHg LEFT 08/13/2004 9:42am Body Temperature 98.0 F Results Test Date Facility Test Result H/L Range Note Basic Metabolic 10/25/2018 [facility] Glucose 108 mg/dL High 74-106 1 Panel (315)- - BUN 16 mg/dL N 7-18 Creatinine 1.3 mg/dL N 0.6-1.3 Glom Filtration Rate, Estimate 59 mL/min >60 If >60 mL/min >60 2 BUN/Creat 12.3 ratio Sodium 145 mmol/L N 136-145 Potassium 4.0 mmol/L N 3.5-5.1 Chloride 113 mmol/L High 98-107 Carbon Dioxide 28 mmol/L N 21-32 Anion Gap 4 mEq/L Low 8-16 Calcium 8.3 mg/dL Low 8.5-10.1 CBS W/Automated 10/25/2018 [facility] White Blood 10.7 K/ uL High 3.4-10.5 Diff (315)- - Count Red Blood Count 3.87 M/uL Low 4.20-5.80 Hemoglobin 12.2 gm/dL Low 12.8-17.0 Hematocrit 37.9 % Low 38.0-48.0 Mean Cell Volume 97.9 fl High 80.0-96.0 Mean Corpuscular HGB 31.5 pg N 27.0-33.0 Mean Corpuscular HGB Conc 32.2 g/dL N 31.7-36.0 Platelet Count 156 K/uL N 155-360 Red Cell Distri Width SD 44.7 fl N 36-51 Red Cell Distri Width %CV 12.5 % N 11.6-15.8 Mean Platelet Volume 10.7 fl High 6.6-10.6 Neut% 75.0 % High 33.0-73.0 Lymph % 13.3 % Low 20.0-42.0 [place] % 9.0 % N 0.0-10.0 Eo% 2.1 % N 0.0-6.6 Bas% 0.1 % N 0.0-1.1 Immature Grans 0.5 % N 0.0-5.0 NRBC % 0.0 /100WBC < 10/ 100 WBC Neut# 8.03 K/uL High 1.8-7.0 Lymph # 1.42 K/uL N 1.0-4.0 [place] # 0.96 K/uL High 0.0-0.8 Eos # 0.23 K/uL N 0.0-0.5 Baso # 0.01 K/uL N 0.0-0.1 Immature Grans Absolute 0.05 K/uL NRBC # 0.00 K/uL Influenza A/B 10/25/2018 [facility] Influenza A Negative (Negative) Antigen (315)- - Antigen Influenza B Antigen Negative (Negative) 3 Comprehensive Metabolic 10/24/2018 [facility] Glucose 123 mg/dL High 74-106 4 Panel (315)- - BUN 17 mg/dL N 7-18 Creatinine 1.4 mg/dL High 0.6-1.3 Glom Filtration Rate, Estimate 54 mL/min >60 If >60 mL/min >60 5 BUN/Creat 12.1 ratio Sodium 144 mmol/L N 136-145 Potassium 4.0 mmol/L N 3.5-5.1 Chloride 111 mmol/L High 98-107 Carbon Dioxide 29 mmol/L N 21-32 Anion Gap 4 mEq/L Low 8-16 Calcium 9.1 mg/dL N 8.5-10.1 Total Protein 8.1 g/dL N 6.4-8.2 Albumin 3.5 g/dL N 3.4-5.0 Globulin 4.6 g/dL High 1.9-4.3 Alb/Glob 0.8 ratio Bilirubin,Total 0.3 mg/dL N 0.2-1.0 Sgot/Ast 19 U/L N 15-37 SGPT/Alt 29 U/L N 12-78 Alkaline Phosphatase 97 U/L N 45-117 CBS W/Automated 10/24/2018 [facility] White Blood 11.3 K/ uL High 3.4-10.5 Diff (315)- - Count Red Blood Count 4.53 M/uL N 4.20-5.80 Hemoglobin 14.8 gm/dL N 12.8-17.0 Hematocrit 43.9 % N 38.0-48.0 Mean Cell Volume 96.9 fl High 80.0-96.0 Mean Corpuscular HGB 32.7 pg N 27.0-33.0 Mean Corpuscular HGB Conc 33.7 g/dL N 31.7-36.0 Platelet Count 191 K/uL N 155-360 Red Cell Distri Width SD 43.8 fl N 36-51 Red Cell Distri Width %CV 12.3 % N 11.6-15.8 Mean Platelet Volume 10.9 fl High 6.6-10.6 Neut% 84.5 % High 33.0-73.0 Lymph % 5.4 % Low 20.0-42.0 [place] % 8.6 % N 0.0-10.0 Eo% 0.7 % N 0.0-6.6 Bas% 0.2 % N 0.0-1.1 Immature Grans 0.6 % N 0.0-5.0 NRBC % 0.0 /100WBC < 10/ 100 WBC Neut# 9.55 K/uL High 1.8-7.0 Lymph # 0.61 K/uL Low 1.0-4.0 [place] # 0.97 K/uL High 0.0-0.8 Eos # 0.08 K/uL N 0.0-0.5 Baso # 0.02 K/uL N 0.0-0.1 Immature Grans Absolute 0.07 K/uL NRBC # 0.00 K/uL Lactic Acid 10/24/2018 [facility] Lactic Acid 1.7 mmol/L N 0.4-1.9 6 (315)- - Lab Reflex >2.0 for Sepsis? Y Laboratory test 10/24/2018 [facility] [address] 0.31 mmol/ L Low 0.60-1.20 7 finding (315)- - Laboratory test 10/04/2018 [facility] Troponin-I < 0.015 8, 9 finding (315)- - ng/mL Comprehensive 10/04/2018 [facility] Glucose 102 mg/dL N 74-106 Metabolic Panel (315)- - BUN 14 mg/dL N 7-18 Creatinine 1.3 mg/dL N 0.6-1.3 Glom Filtration Rate, Estimate 59 mL/min >60 If >60 mL/min >60 10 BUN/Creat 10.7 ratio Sodium 142 mmol/L N 136-145 Potassium 4.0 mmol/L N 3.5-5.1 Chloride 107 mmol/L N 98-107 Carbon Dioxide 31 mmol/L N 21-32 Anion Gap 4 mEq/L Low 8-16 Calcium 9.0 mg/dL N 8.5-10.1 Total Protein 7.4 g/dL N 6.4-8.2 Albumin 3.2 g/dL Low 3.4-5.0 Globulin 4.2 g/dL N 1.9-4.3 Alb/Glob 0.8 ratio Bilirubin,Total 0.3 mg/dL N 0.2-1.0 Sgot/Ast 25 U/L N 15-37 SGPT/Alt 38 U/L N 12-78 Alkaline Phosphatase 92 U/L N 45-117 CBS W/Automated Diff 10/04/2018 [facility] White Blood 7.7 K/uL N 3.4-10.5 (315)- - Count Red Blood Count 4.12 M/uL Low 4.20-5.80 Hemoglobin 13.4 gm/dL N 12.8-17.0 Hematocrit 40.0 % N 38.0-48.0 Mean Cell Volume 97.1 fl High 80.0-96.0 Mean Corpuscular HGB 32.5 pg N 27.0-33.0 Mean Corpuscular HGB Conc 33.5 g/dL N 31.7-36.0 Platelet Count 166 K/uL N 155-360 Red Cell Distri Width SD 44.3 fl N 36-51 Red Cell Distri Width %CV 12.4 % N 11.6-15.8 Mean Platelet Volume 10.6 fl N 6.6-10.6 Neut% 61.6 % N 33.0-73.0 Lymph % 21.4 % N 20.0-42.0 [place] % 11.2 % High 0.0-10.0 Eo% 5.2 % N 0.0-6.6 Bas% 0.1 % N 0.0-1.1 Immature Grans 0.5 % N 0.0-5.0 NRBC % 0.0 /100WBC < 10/ 100 WBC Neut# 4.73 K/uL N 1.8-7.0 Lymph # 1.64 K/uL N 1.0-4.0 [place] # 0.86 K/uL High 0.0-0.8 Eos # 0.40 K/uL N 0.0-0.5 Baso # 0.01 K/uL N 0.0-0.1 Immature Grans Absolute 0.04 K/uL NRBC # 0.00 K/uL Lipid 09/27/2018 [facility] Cholesterol 209 mg/dL High <200 11, 12 (315)- - Triglycerides 190 mg/dL High <150 13 HDL Cholesterol 33 mg/dL Low >40 14 LDL-Cholesterol 138 mg/dL < 100 15 Comprehensive Met 09/27/2018 [facility] Glucose 110 mg/ dL High 74-106 Panel-FCMG (315)- - BUN 20 mg/dL High 7-18 Creatinine 1.4 mg/dL High 0.6-1.3 Glom Filtration Rate, Estimate 54 mL/min >60 If >60 mL/min >60 16 BUN/Creat 14.2 ratio Sodium 144 mmol/L N 136-145 Potassium 4.2 mmol/L N 3.5-5.1 Chloride 109 mmol/L High 98-107 Carbon Dioxide 30 mmol/L N 21-32 Anion Gap 5 mEq/L Low 8-16 Calcium 9.7 mg/dL N 8.5-10.1 Total Protein 8.7 g/dL High 6.4-8.2 Albumin 4.0 g/dL N 3.4-5.0 Globulin 4.7 g/dL High 1.9-4.3 Alb/Glob 0.9 ratio Bilirubin,Total 0.3 mg/dL N 0.2-1.0 Sgot/Ast 23 U/L N 15-37 SGPT/Alt 36 U/L N 12-78 Alkaline Phosphatase 108 U/L N 45-117 Laboratory test 09/27/2018 [facility] Osmolality,Serum 314 mOsm/kg High 275-295 17 finding (315)- - Valproic Acid 48.2 ug/mL Low 50.0-100.[address] 0.49 mmol/L Low 0.60-1.20 19 Thyroid Stim Hormone 4.27 uIU/mL High 0.30-4.20 20 Ammonia < 10 umol/L Low 11-32 21 Prolactin 72.2 ng/mL High 2.5-17.4 BMP W/ Calc Osmo 08/16/2018 [facility] Sodium 149 mmol/L High (136-145) 22 Potassium 4.3 mmol/L (3.6-5.2) Chloride 112 mmol/L High (100-108) Co2 33 mmol/L High (22-31) Anion Gap 4 mmol/L Low (7-16) Urea Nitrogen 22 mg/dL (7-24) Creatinine 1.56 mg/dL High (0.80-1.30) BUN/Creat Ratio 14.1 RATIO (10.0-20.0) Glucose 93 mg/dL (70-99) Calcium 9.3 mg/dL (8.4-10.2) GFR 45 ml/min/1.73m2 Low (>59) GFR ( Amer) 55 ml/min/1.73m2 Low (>59) GFR Interpretation (SEE NOTE) 23 Calculated Osmo 299 mosm/kg (280-300) 24 Ua RFX Micro & 08/10/2018 [facility] Urine Color YELLOW Yellow 25 Culture II (315)- - Urine Clarity CLEAR Clear Urine Glucose - Dipstick NEGATIVE mg/dL Negative Urine Bilirubin - Dipstick NEGATIVE Negative Urine Ketone NEGATIVE mg/dL Negative Urine Specific [place] 1.010 N 1.010-1.030 Urine Blood NEGATIVE Negative Urine PH 6.5 N 6.5-7.5 Urine Protein - Dipstick NEGATIVE mg/dL Negative Urine Urobilinogen - Dipstick 0.2 E.U./dL N 0.2-1.0 Urine Nitrite - Dipstick NEGATIVE Negative Urine Leuk Esterase NEGATIVE Negative Source: URINE, CLEAN CAT <SEE NOTE> 26 Laboratory test 08/10/2018 [facility] [address] 0.64 mmol/ L N 0.60-1.20 27 finding (315)- - Laboratory test 08/10/2018 [facility] CK 108 U/L N 39- 308 finding (315)- - Troponin-I < 0.015 ng/mL 28 Comprehensive Metabolic 08/10/2018 [facility] Glucose 92 mg/dL N 74-106 Panel (315)- - BUN 17 mg/dL N 7-18 Creatinine 1.4 mg/dL High 0.6-1.3 Glom Filtration Rate, Estimate 54 mL/min >60 If >60 mL/min >60 29 BUN/Creat 12.1 ratio Sodium 146 mmol/L High 136-145 Potassium 4.3 mmol/L N 3.5-5.1 Chloride 114 mmol/L High 98-107 Carbon Dioxide 29 mmol/L N 21-32 Anion Gap 3 mEq/L Low 8-16 Calcium 9.2 mg/dL N 8.5-10.1 Total Protein 7.9 g/dL N 6.4-8.2 Albumin 3.3 g/dL Low 3.4-5.0 Globulin 4.6 g/dL High 1.9-4.3 Alb/Glob 0.7 ratio Bilirubin,Total 0.2 mg/dL N 0.2-1.0 Sgot/Ast 27 U/L N 15-37 SGPT/Alt 43 U/L N 12-78 Alkaline Phosphatase 96 U/L N 45-117 Influenza A/B 08/10/2018 [facility] Influenza A Negative (Negative) Antigen (315)- - Antigen Influenza B Antigen Negative (Negative) 30 CBS W/Automated Diff 08/10/2018 [facility] White Blood 7.8 K/uL N 3.4-10.5 (315)- - Count Red Blood Count 4.44 M/uL N 4.20-5.80 Hemoglobin 14.1 gm/dL N 12.8-17.0 Hematocrit 43.5 % N 38.0-48.0 Mean Cell Volume 98.0 fl High 80.0-96.0 Mean Corpuscular HGB 31.8 pg N 27.0-33.0 Mean Corpuscular HGB Conc 32.4 g/dL N 31.7-36.0 Platelet Count 153 K/uL Low 155-360 Red Cell Distri Width SD 45.2 fl N 36-51 Red Cell Distri Width %CV 12.9 % N 11.6-15.8 Mean Platelet Volume 10.9 fL High 6.6-10.6 Neut% 66.3 % N 33.0-73.0 Lymph % 19.2 % Low 20.0-42.0 [place] % 12.2 % High 0.0-10.0 Eo% 2.3 % N 0.0-6.6 Bas% 0.0 % N 0.0-1.1 Neut# 5.18 K/uL N 1.8-7.0 Lymph # 1.50 K/uL N 1.0-4.0 [place] # 0.95 K/uL High 0.0-0.8 Eos # 0.18 K/uL N 0.0-0.5 Baso # 0.00 K/uL N 0.0-0.1 Basic Metabolic 06/08/2018 [facility] Glucose 120 mg/dL High 74-106 31 Panel (315)- - BUN 22 mg/dL High 7-18 Creatinine 1.5 mg/dL High 0.6-1.3 Glom Filtration Rate, Estimate 50 mL/min >60 If >60 mL/min >60 32 BUN/Creat 14.6 ratio Sodium 145 mmol/L N 136-145 Potassium 3.9 mmol/L N 3.5-5.1 Chloride 115 mmol/L High 98-107 Carbon Dioxide 24 mmol/L N 21-32 Anion Gap 6 mEq/L Low 8-16 Calcium 9.3 mg/dL N 8.5-10.1 CBS W/Automated Diff 06/05/2018 [facility] White Blood 9.3 K/uL N 3.4-10.5 33 (315)- - Count Red Blood Count 4.61 M/uL N 4.20-5.80 Hemoglobin 14.6 gm/dL N 12.8-17.0 Hematocrit 45.9 % N 38.0-48.0 Mean Cell Volume 99.6 fl High 80.0-96.0 Mean Corpuscular HGB 31.7 pg N 27.0-33.0 Mean Corpuscular HGB Conc 31.8 g/dL N 31.7-36.0 Platelet Count 188 K/uL N 155-360 Red Cell Distri Width SD 48.0 fl N 36-51 Red Cell Distri Width %CV 13.4 % N 11.6-15.8 Mean Platelet Volume 11.1 fL High 6.6-10.6 Neut% 71.9 % N 33.0-73.0 Lymph % 11.4 % Low 20.0-42.0 [place] % 13.6 % High 0.0-10.0 Eo% 3.1 % N 0.0-6.6 Bas% 0.0 % N 0.0-1.1 Neut# 6.71 K/uL N 1.8-7.0 Lymph # 1.06 K/uL N 1.0-4.0 [place] # 1.27 K/uL High 0.0-0.8 Eos # 0.29 K/uL N 0.0-0.5 Baso # 0.00 K/uL N 0.0-0.1 Basic Metabolic Panel 06/05/2018 [facility] Glucose 124 mg/dL High 74-106 (315)- - BUN 18 mg/dL N 7-18 Creatinine 1.5 mg/dL High 0.6-1.3 Glom Filtration Rate, Estimate 50 mL/min >60 If >60 mL/min >60 34 BUN/Creat 12.0 ratio Sodium 149 mmol/L High 136-145 Potassium 4.1 mmol/L N 3.5-5.1 Chloride 116 mmol/L High 98-107 Carbon Dioxide 30 mmol/L N 21-32 Anion Gap 3 mEq/L Low 8-16 Calcium 9.8 mg/dL N 8.5-10.1 Laboratory test 06/04/2018 [facility] [address] 0.79 mmol/ L N 0.60-1.20 35 finding (315)- - Laboratory test 06/04/2018 [facility] CK 280 U/L N 39- 308 finding (315)- - Troponin-I < 0.015 ng/mL 36 Carbamazepine 4.5 ug/mL N 4.0-12.0 Comprehensive Metabolic 06/04/2018 [facility] Glucose 122 mg/dL High 74-106 Panel (315)- - BUN 15 mg/dL N 7-18 Creatinine 1.6 mg/dL High 0.6-1.3 Glom Filtration Rate, Estimate 47 mL/min >60 If 56 mL/min >60 37 BUN/Creat 9.3 ratio Sodium 146 mmol/L High 136-145 Potassium 4.4 mmol/L N 3.5-5.1 Chloride 113 mmol/L High 98-107 Carbon Dioxide 30 mmol/L N 21-32 Anion Gap 3 mEq/L Low 8-16 Calcium 9.1 mg/dL N 8.5-10.1 Total Protein 8.1 g/dL N 6.4-8.2 Albumin 3.3 g/dL Low 3.4-5.0 Globulin 4.8 g/dL High 1.9-4.3 Alb/Glob 0.7 ratio Bilirubin,Total 0.3 mg/dL N 0.2-1.0 Sgot/Ast 28 U/L N 15-37 SGPT/Alt 44 U/L N 12-78 Alkaline Phosphatase 105 U/L N 45-117 Laboratory test 06/04/2018 [facility] Salicylate < 1.7 mg /dL Low 2.8-20.0 38 finding (315)- - Laboratory test 06/04/2018 [facility] Acetaminophen < 2.0 ug/mL Low 10.0-30.0 39 finding (315)- - Laboratory test 06/04/2018 [facility] Act Partial 30.2 N 23.4-35.0 40 finding (315)- - Thrombo Time seconds Protime 06/04/2018 [facility] Protime 13.9 N 12.0-14.4 (315)- - seconds Inr 1.1 N 0.9-1.1 41 CBS W/Automated Diff 06/04/2018 [facility] White Blood 9.3 K/uL N 3.4-10.5 (315)- - Count Red Blood Count 4.72 M/uL N 4.20-5.80 Hemoglobin 15.1 gm/dL N 12.8-17.0 Hematocrit 47.0 % N 38.0-48.0 Mean Cell Volume 99.6 fl High 80.0-96.0 Mean Corpuscular HGB 32.0 pg N 27.0-33.0 Mean Corpuscular HGB Conc 32.1 g/dL N 31.7-36.0 Platelet Count 173 K/uL N 155-360 Red Cell Distri Width SD 47.9 fl N 36-51 Red Cell Distri Width %CV 13.4 % N 11.6-15.8 Mean Platelet Volume 10.9 fL High 6.6-10.6 Neut% 72.6 % N 33.0-73.0 Lymph % 13.5 % Low 20.0-42.0 [place] % 11.1 % High 0.0-10.0 Eo% 2.7 % N 0.0-6.6 Bas% 0.1 % N 0.0-1.1 Neut# 6.75 K/uL N 1.8-7.0 Lymph # 1.25 K/uL N 1.0-4.0 [place] # 1.03 K/uL High 0.0-0.8 Eos # 0.25 K/uL N 0.0-0.5 Baso # 0.01 K/uL N 0.0-0.1 Drugs Of Abuse-Urine 06/04/2018 [facility] Amphetamines ( Urine) Negative Screen 7 (315)- - Barbiturates (Urine) Negative Benzodiazepines (Urine) Negative Cannabinoids (Urine) Negative Cocaine Metabolite (Urine) Negative Methadone (Urine) Negative Opiates (Urine) Negative Urine Cutoffs * 42 Venous Blood Gas 06/04/2018 [facility] Venous Blood Gas 7.29 N 7.25-7.55 (315)- - pH Venous Blood Gas Pco2 58 mmHg High 45-50 Venous Blood Gas Po2 56 mmHg N 40-60 Venous Blood Gas Hco3 27.0 mEq/L Venous Blood Gas Base XS -0.9 mEq/L Venous Blood Gas OS Sat. 84.6 % High 60-80 Ua RFX Micro & 06/04/2018 [facility] Urine Color YELLOW Yellow Culture II (315)- - Urine Clarity CLEAR Clear Urine Glucose - Dipstick NEGATIVE mg/dL Negative Urine Bilirubin - Dipstick NEGATIVE Negative Urine Ketone NEGATIVE mg/dL Negative Urine Specific [place] 1.010 N 1.010-1.030 Urine Blood NEGATIVE Negative Urine PH 7.5 N 6.5-7.5 Urine Protein - Dipstick NEGATIVE mg/dL Negative Urine Urobilinogen - Dipstick 0.2 E.U./dL N 0.2-1.0 Urine Nitrite - Dipstick NEGATIVE Negative Urine Leuk Esterase NEGATIVE Negative Source: URINE, CLEAN CAT <SEE NOTE> 43 Aot Request 06/04/2018 [facility] Aot Request Test(s) added 44 (315)- - Tests to be added: carbamazepine Lactic Acid 06/04/2018 [facility] Lactic Acid 1.3 mmol/L N 0.4-1.9 45 (315)- - Lab Reflex >2.0 for Sepsis? Y Tricyclic 06/04/2018 [facility] Amitriptyline,Serum None Not Antidepressants (315)- - Detected Estab. ng/mL Nortriptyline,Serum None Detected ng/mL 50-150 Total (Ami+Nor) (SEE NOTE) ng/mL 120-250 46 Imipramine,Serum None Detected ng/mL Not Estab. Desipramine,Serum None Detected ng/mL Not Estab. Total (Imi+Adonis) (SEE NOTE) ng/mL 150-250 47 Doxepin,Serum None Detected ng/mL Not Estab. Nordoxepin,Serum None Detected ng/mL Not Estab. Total(Dox+Nordox) (SEE NOTE) ng/mL 150-250 48 Disclaimer: (SEE NOTE) 49 Laboratory test finding 12/11/[address] [facility] [address] 0.72 mmol/L (0.60- 1.50) 50, 51 Laboratory test finding 12/11/2017 [facility] TSH 2.51 uIU/mL 0.35-4.94 Hepatitis C Virus Antibody NON REACTIVE S/CORatio(Nino Non Reactive 52 PSA 0.370 ng/mL 0.000-4.000 53 Comprehensive Met Panel-FCMG 12/11/2017 [facility] Sodium 143 mmol/L 135- 146 54 Potassium 4.5 mmol/L 3.5-5.2 Chloride# 106 mmol/L 97-110 55 Carbon Dioxide 31 mmol/L 24-34 Glucose 79 mg/dL 70-105 BUN 20 mg/dL 6-26 Creatinine 1.2 mg/dL 0.5-1.4 Calcium 9.8 mg/dL 8.5-10.2 Total Protein 7.0 g/dL 6.0-8.0 Albumin 4.1 g/dL 3.6-4.9 Globulin 2.9 g/dL 2.0-3.5 A/G Ratio 1.4 Ratio 1.0-2.2 Total Bilirubin 0.3 mg/dL 0.1-1.3 Alkaline Phosphatase 87 U/L 24-140 Alt 52 U/L High 3-42 Ast 32 U/L 8-42 Dahlia Egfr >60 >60 56 Non Dahlia Egfr >60 >60 57 Anion Gap 6 mmol/L 5-15 58 CBC with Auto Diff-fcmg 12/11/2017 [facility] WBC 7.7 K/uL 4.1-11.0 RBC 4.62 M/uL 4.60-6.10 Hemoglobin 14.6 gm/dL 13.5-18.0 Hematocrit 43.4 % 41.0-53.0 MCV 93.8 fL 80.0-97.0 MCH 31.6 pg 27.0-32.0 MCHC 33.7 g/dL 32.0-36.0 RDW 13.1 % 11.5-14.5 PLT Count 177 K/ul 140-400 MPV 9.4 FL 7.1-10.7 Neutrophil 64.3 % 35.0-75.0 Lymphocyte 18.5 % 16.0-52.0 Monocyte 11.6 % High 2.0-10.0 Eosinophil 5.2 % High 0.0-5.0 Basophil 0.4 % 0.0-4.0 Abs Neutrophils 5.0 K/uL 2.1-8.0 Abs Lymphocytes 1.4 K/uL 0.8-5.5 Abs Monocytes 0.9 K/uL 0.1-1.0 Abs Eosinophils 0.4 K/uL 0.0-0.5 Abs Basophils 0.0 K/uL 0.0-0.3 Laboratory test 05/22/2017 [facility] Insulin 15.9 uIU/mL 2.6-24.9 59, 60 finding Lab Dept [phone] Basic Metabolic 05/22/2017 [facility] Glucose 113 mg/ dL High 74-106 Panel Lab Dept [phone] BUN 18 mg/dL N 7-18 Creatinine 1.4 mg/dL High 0.6-1.3 Glom Filtration Rate, Estimate 55 mL/min >60 If >60 mL/min >60 61 BUN/Creat 12.8 ratio Sodium 145 mmol/L N 136-145 Potassium 4.2 mmol/L N 3.5-5.1 Chloride 109 mmol/L High 98-107 Carbon Dioxide 31 mmol/L N 21-32 Anion Gap 5 mEq/L Low 8-16 Calcium 10.1 mg/dL N 8.5-10.1 Laboratory 05/22/2017 [facility] Calcium,Ionized 5.9 mg/dL High 4.5-5.6 62 test finding Lab Dept [phone] CBC With Auto 05/21/2017 [facility] WBC 8.8 K/uL 4.1-11.0 63 Diff RBC 4.83 M/uL 4.60-6.10 Hemoglobin 15.6 gm/dL 13.5-18.0 Hematocrit 45.9 % 41.0-53.0 MCV 95.0 fL 80.0-97.0 MCH 32.2 pg High 27.0-32.0 MCHC 33.9 g/dL 32.0-36.0 RDW 13.3 % 11.5-14.5 PLT Count 204 K/ul 140-400 MPV 8.8 FL 7.1-10.7 Neutrophil 69.4 % 35.0-75.0 Lymphocyte 16.3 % 16.0-52.0 Monocyte 11.1 % High 2.0-10.0 Eosinophil 3.0 % 0.0-5.0 Basophil 0.2 % 0.0-4.0 Abs Neutrophils 6.1 K/uL 2.1-8.0 Abs Lymphocytes 1.4 K/uL 0.8-5.5 Abs Monocytes 1.0 K/uL 0.1-1.0 Abs Eosinophils 0.3 K/uL 0.0-0.5 Abs Basophils 0.0 K/uL 0.0-0.3 Comprehensive Met Panel-FCMG 05/21/2017 [facility] Sodium 144 mmol/L 135- 146 64 Potassium 3.9 mmol/L 3.5-5.2 Chloride# 107 mmol/L 97-110 65 Carbon Dioxide 31 mmol/L 24-34 Glucose 28 mg/dL Low 70-105 66 Creatinine 1.4 mg/dL 0.5-1.4 Calcium 10.4 mg/dL High 8.5-10.2 Total Protein 7.5 g/dL 6.0-8.0 Albumin 4.3 g/dL 3.6-4.9 Globulin 3.2 g/dL 2.0-3.5 A/G Ratio 1.3 Ratio 1.0-2.2 Total Bilirubin 0.3 mg/dL 0.1-1.3 Alkaline Phosphatase 119 U/L 24-140 Alt 33 U/L 3-42 Ast 20 U/L 8-42 Dahlia Egfr >60 >60 67 Non Dahlia Egfr 52 Low >60 68 Anion Gap 6 mmol/L Low 7-16 69 BUN 20 mg/dL 6-26 Laboratory test 06/24/2016 [facility] Urine Culture Microbiology res 70 finding <SEE NOTE> Laboratory test 03/26/2016 [facility] Fit(Fecal Negative Negative finding Occult Blood) Laboratory test 08/26/2015 [facility] Esophageal See Note 71 finding (315)- - Biopsy Laboratory test 06/06/2015 [facility] TSH 3.71 uIU/mL 0.35-4.94 finding Free T4 0.89 ng/dL 0.70-1.48 T3,Free 1.77 pg/mL 1.71-3.71 Esr 6 mm/hr 0-15 Thyroid Auto AB -RL 06/06/2015 [facility] Thyroglobulin AB @ <20 IU/mL (<40 ) Thyr Peroxidase AB @ <10 IU/mL (<35) 72 Laboratory test 03/16/2015 [facility] PSA 0.350 ng/mL 0.000-4.000 73 finding Basic Metabolic 12/30/2014 [facility] Glucose 104 mg/dL 74-106 Panel (315)- - BUN 13 mg/dL 7-18 Creatinine 1.3 mg/dL 0.6-1.3 Glom Filtration Rate, Estimate 60 mL/min >60 If >60 mL/min >60 74 BUN/Creat 10.0 ratio Sodium 141 mmol/L 136-145 Potassium 4.2 mmol/L 3.5-5.1 Chloride 109 mmol/L High 98-107 Carbon Dioxide 27 mmol/L 21-32 Anion Gap 5 mEq/L Low 8-16 Calcium 9.9 mg/dL 8.5-10.1 CBC 12/30/2014 [facility] White Blood Count 7.3 K/uL 3.4-10.5 (315)- - Red Blood Count 4.22 M/uL 4.20-5.80 Hemoglobin 13.8 gm/dL 12.8-17.0 Hematocrit 40.0 % 38.0-48.0 Mean Cell Volume 94.8 fl 80.0-96.0 Mean Corpuscular HGB 32.7 pg 27.0-33.0 Mean Corpuscular HGB Conc 34.5 g/dL 31.7-36.0 Platelet Count 204 K/uL 150-400 Red Cell Distri Width %CV 12.5 % 11.6-15.8 Mean Platelet Volume 10.2 fL 6.6-10.6 Drugs Of Abuse-Urine 12/29/2014 [facility] Amphetamines ( Urine) Negative Screen 7 (315)- - Barbiturates (Urine) Negative Benzodiazepines (Urine) Negative Cannabinoids (Urine) Negative Cocaine Metabolite (Urine) Negative Methadone (Urine) Negative Opiates (Urine) Negative Urine Cutoffs * 75 Urine Screen 12/29/2014 [facility] Urine Color YELLOW Yellow (315)- - Urine Clarity CLEAR Clear Urine Glucose - Dipstick NEGATIVE mg/dL Negative Urine Bilirubin - Dipstick NEGATIVE Negative Urine Ketone NEGATIVE mg/dL Negative Urine Specific [place] <=1.005 Low 1.010-1.030 Urine Blood TRACE Negative Urine PH 6.0 Low 6.5-7.5 Urine Protein - Dipstick NEGATIVE mg/dL Negative Urine Urobilinogen - Dipstick 0.2 E.U./dL 0.2-1.0 Urine Nitrite - Dipstick NEGATIVE Negative Urine Leuk Esterase NEGATIVE Negative Comprehensive Metabolic 12/29/2014 [facility] Glucose 99 mg/dL 74-106 Panel (315)- - BUN 12 mg/dL 7-18 Creatinine 1.2 mg/dL 0.6-1.3 Glom Filtration Rate, Estimate >60 mL/min >60 If >60 mL/min >60 76 BUN/Creat 10.0 ratio Sodium 140 mmol/L 136-145 Potassium 3.9 mmol/L 3.5-5.1 Chloride 105 mmol/L 98-107 Carbon Dioxide 29 mmol/L 21-32 Anion Gap 6 mEq/L Low 8-16 Calcium 9.8 mg/dL 8.5-10.1 Total Protein 7.3 g/dL 6.4-8.2 Albumin 3.3 g/dL Low 3.4-5.0 Globulin 4.0 g/dL 1.9-4.3 Alb/Glob 0.8 ratio Bilirubin,Total 0.3 mg/dL 0.2-1.0 Sgot/Ast 19 U/L 15-37 SGPT/Alt 47 U/L 12-78 Alkaline Phosphatase 105 U/L 45-117 Laboratory test finding 12/29/2014 [facility] CK 72 U/L 39-308 (315)- - Troponin-I < 0.015 ng/mL 77 CBC W/Automated Diff 12/29/2014 [facility] White Blood 7.5 K/uL 3.4-10.5 (315)- - Count Red Blood Count 4.10 M/uL Low 4.20-5.80 Hemoglobin 13.1 gm/dL 12.8-17.0 Hematocrit 38.3 % 38.0-48.0 Mean Cell Volume 93.4 fl 80.0-96.0 Mean Corpuscular HGB 32.0 pg 27.0-33.0 Mean Corpuscular HGB Conc 34.2 g/dL 31.7-36.0 Platelet Count 201 K/uL 150-400 Red Cell Distri Width SD 41.8 fl 36-51 Red Cell Distri Width %CV 12.5 % 11.6-15.8 Mean Platelet Volume 10.1 fL 6.6-10.6 Neut% 65.0 % 33.0-73.0 Lymph % 18.2 % 17.0-56.0 [place] % 12.8 % High 0.0-10.0 Eo% 3.9 % 0.0-5.0 Bas% 0.1 % 0.1-1.0 Neut# 4.87 K/uL 1.8-7.0 Lymph # 1.36 K/uL Low 1.8-7.0 [place] # 0.96 K/uL High 0.0-0.8 Eos # 0.29 K/uL 0.0-0.5 Baso # 0.01 K/uL Low 0.1-0.2 Liver Function 12/29/2014 [facility] Total Protein 8.0 g/ dL 6.4-8.2 Tests (315)- - Albumin 3.7 g/dL 3.4-5.0 Globulin 4.3 g/dL 1.9-4.3 Alb/Glob 0.9 ratio Bilirubin,Total 0.3 mg/dL 0.2-1.0 Bilirubin,Direct < 0.1 mg/dL 0.0-0.2 Bilirubin,Indirect 0.2 mg/dL 0.0-0.9 Sgot/Ast 19 U/L 15-37 SGPT/Alt 48 U/L 12-78 Alkaline Phosphatase 123 U/L High 45-117 Basic Metabolic Panel 12/29/2014 [facility] Glucose 113 mg/dL High 74-106 (315)- - BUN 12 mg/dL 7-18 Creatinine 1.3 mg/dL 0.6-1.3 Glom Filtration Rate, Estimate 60 mL/min >60 If >60 mL/min >60 78 BUN/Creat 9.2 ratio Sodium 140 mmol/L 136-145 Potassium 4.0 mmol/L 3.5-5.1 Chloride 106 mmol/L 98-107 Carbon Dioxide 26 mmol/L 21-32 Anion Gap 8 mEq/L 8-16 Calcium 10.1 mg/dL 8.5-10.1 Laboratory test finding 12/29/2014 [facility] Lipase 59 U /L Low 73-393 (315)- - CK 88 U/L 39-308 Troponin-I < 0.015 ng/mL 79 CBC W/Automated Diff 12/29/2014 [facility] White Blood 9.2 K/uL 3.4-10.5 (315)- - Count Red Blood Count 4.49 M/uL 4.20-5.80 Hemoglobin 14.7 gm/dL 12.8-17.0 Hematocrit 42.2 % 38.0-48.0 Mean Cell Volume 94.0 fl 80.0-96.0 Mean Corpuscular HGB 32.7 pg 27.0-33.0 Mean Corpuscular HGB Conc 34.8 g/dL 31.7-36.0 Platelet Count 215 K/uL 150-400 Red Cell Distri Width SD 42.5 fl 36-51 Red Cell Distri Width %CV 12.6 % 11.6-15.8 Mean Platelet Volume 10.2 fL 6.6-10.6 Neut% 73.5 % High 33.0-73.0 Lymph % 15.6 % Low 17.0-56.0 [place] % 8.6 % 0.0-10.0 Eo% 2.3 % 0.0-5.0 Bas% 0.0 % Low 0.1-1.0 Neut# 6.72 K/uL 1.8-7.0 Lymph # 1.43 K/uL Low 1.8-7.0 [place] # 0.79 K/uL 0.0-0.8 Eos # 0.21 K/uL 0.0-0.5 Baso # 0.00 K/uL Low 0.1-0.2 Laboratory test 12/29/2014 [facility] [address] 1.17 0.60-1.20 finding (315)- - mmol/L Laboratory test 12/29/2014 N2N/CCD Import Alanine 48 12-78 finding Aminotransferase (Alt/SGPT) Aspartate Amino Transf (Ast/Sgot) 19 15-37 BUN/Creatinine Ratio 9.2 Basophils # (Auto) 0.00 Low 0.1-0.2 Basophils (%) (Auto) 0.0 Low 0.1-1.0 Carbon Dioxide Level 26 21-32 Eosinophils # (Auto) 0.21 0.0-0.5 Eosinophils (%) (Auto) 2.3 0.0-5.0 Estimated GFR (Non- 60 >60 Indirect Bilirubin 0.2 0.0-0.[address] Level 1.17 0.60-1.20 Lymphocytes # (Auto) 1.43 Low 1.8-7.0 Lymphocytes (%) (Auto) 15.6 Low 17.0-56.0 Mean Corpuscular Hemoglobin 32.7 27.0-33.0 Mean Corpuscular Hemoglobin Concent 34.8 31.7-36.0 Mean Corpuscular Volume 94.0 80.0-96.0 Monocytes # (Auto) 0.79 0.0-0.8 Monocytes (%) (Auto) 8.6 0.0-10.0 Neutrophils # (Auto) 6.72 1.8-7.0 Neutrophils (%) (Auto) 73.5 High 33.0-73.0 RDW Coefficient of Variation 12.6 11.6-15.8 Red Cell Distribution Width 42.5 36-51 Sodium Level 140 136-145 Total Bilirubin 0.3 0.2-1.0 Total Creatine Kinase 88 39-308 Occult Blood Stool 12/01/2014 Done In [facility] Stool Occult Blood NEGATIVE (X3) #1-RL Stool Occult Blood #2-RL NEGATIVE Stool Occult Blood #3-RL POSITIVE 80 Laboratory test 03/27/2014 N2N/CCD Import PSA 0.4 ng/mL 0.0-4.0 finding Laboratory test 02/21/2013 N2N/CCD Import Esr Sedrate 37.0 sec High 0.0- 20.0 finding FT4 0.91 ng/dL 0.75-1.54 PSA 0.4 ng/mL 0.0-4.0 TSH 2.78 uIU/ml 0.50-6.00 Thyroid Antithyroglobulin AB < 1.0 Iu/ml 0.0-0.9 81 Thyroid Peroxidase Antibodies 15 IU/mL 0-34 82 Thyrotropin Receptor Antibody 0.62 IU/L 0.00-1.75 Triiodothyronine,Free 2.57 pg/mL 1.95-4.58 LDL Cholesterol 01/04/2013 N2N/CCD Import Cholesterol 232 mg/dL High 120- 200 Profile HDL Cholesterol 33 mg/dL 29-83 LDL-Cholesterol 144 mg/dL 62-185 Triglycerides 273 mg/dL High 16-231 Laboratory test finding 01/04/2013 N2N/CCD Import Alb/Glob 1.2 ratio Albumin 4.2 g/dL 3.5-5.0 Alkaline Phosphatase 110 U/L 50-136 Anion Gap 10 mEq/L 8-16 BUN 13 mg/dL 5-23 BUN/Creat 11.8 ratio Bilirubin,Total 0.3 mg/dL 0.2-1.2 Calcium 10.0 mg/dL 8.5-10.1 Carbon Dioxide 29 mEq/L 18-29 Chloride 107 mmol/L 98-107 Creatinine 1.1 mg/dL 0.5-1.4 Globulin 3.5 g/dL 1.9-4.3 Glom Filtration Rate, Estimate >60 mL/min >60 Glucose 106 mg/dL 76-115 Hematocrit 42.8 % 38.0-48.0 Hemoglobin 14.7 gm/dL 12.8-17.0 If >60 mL/min >[address] 0.92 mmol/L 0.60-1.20 Mean Cell Volume 92.4 fl 80.0-96.0 Mean Corpuscular HGB 31.7 pg 27.0-33.0 Mean Corpuscular HGB Conc 34.3 g/dL 31.7-36.0 Mean Platelet Volume 9.8 fL 6.6-10.6 Platelet Count 237 K/uL 150-400 Potassium 4.1 mmol/L 3.5-5.1 Red Blood Count 4.63 M/uL 4.20-5.80 Red Cell Distri Width %CV 12.2 % 11.6-15.8 SGPT/Alt 37 U/L 30-65 Sgot/Ast 17 U/L 16-40 Sodium 142 mmol/L 136-145 Thyroid Stim Hormone 5.70 uIU/mL High 0.49-4.67 Total Protein 7.7 g/dL 6.3-8.0 White Blood Count 6.0 K/uL 3.4-10.5 Laboratory test finding 02/19/2012 N2N/CCD Import A/G Ratio 1.3 1.0-2.2 Absolute Basophils 0.018 K/ul 0.0-0.3 Absolute Eosinophils 0.213 K/ul 0.0-0.5 Absolute Lymphocytes 0.966 K/ul 0.8-4.8 Absolute Monocytes 0.719 K/ul 0.1-1.0 Absolute Neutrophils 4.62 K/ul 2.05-7.63 Albumin 4.3 g/dL 3.5-5.0 Alkaline Phosphatase 98 U/L 30-126 Alt 42 U/L 21-72 Ast 33 U/L 17-59 BUN 13 mg/dL 9-21 BUN/CR Ratio 14.0 Ratio 12-20 Basophil 0.3 % 0-2 Calcium 10.3 mg/dL 8.7-10.5 Carbon Dioxide 27 mmol/L 22-30 Chloride 104 mmol/L 98-107 Creatinine, Serum 0.9 mg/dL 0.8-1.5 Eosinophil 3.3 % 0-4 Globulin 3.3 g/dL 2.7-4.3 Glucose 77 mg/dL 75-110 Hematocrit 41.1 % 37.0-51.0 Hemoglobin 14.0 GM/dl 12.0-16.0 Lymphocytes 14.8 % Low 20-44 MCH 31.2 pg 26.0-32.0 MCHC 33.9 g/dL 31.0-36.0 MCV 92 FL 80-97 Monocytes 11.0 % High 2-10.0 Neutrophils 70.7 % High 50-70 PSA 0.44 ng/mL 0.00-4.00 Platelet Count 201 K/ul 140-440 Potassium 4.3 mmol/L 3.6-5.0 RBC 4.47 M/ul 4.2-6.3 RDW 10.9 % Low 11.5-14.5 Sodium 142 mmol/L 137-145 Total Bilirubin 0.5 mg/dL 0.2-1.3 Total Protein 7.6 g/dL 6.3-8.2 WBC 6.5 K/ul 4.1-10.9 Laboratory test finding 02/17/2011 N2N/CCD Import A/G Ratio 1.2 1.0-2.2 Absolute Basophils 0.044 K/ul 0.0-0.3 Absolute Eosinophils 0.242 K/ul 0.0-0.5 Absolute Lymphocytes 1.13 K/ul 0.8-4.8 Absolute Monocytes 0.803 K/ul 0.1-1.0 Absolute Neutrophils 4.35 K/ul 2.05-7.63 Albumin 4.2 g/dL 3.5-5.0 Alkaline Phosphatase 98 U/L 30-126 Alt 37 U/L 21-72 Ast 28 U/L 17-59 BUN 12 mg/dL 9-21 BUN/CR Ratio 11.7 Ratio Low 12-20 Basophil 0.7 % 0-2 Calcium 10.3 mg/dL 8.7-10.5 Carbon Dioxide 30 mmol/L 22-30 Chloride 101 mmol/L 98-107 Creatinine, Serum 1.0 mg/dL 0.8-1.5 Eosinophil 3.7 % 0-4 Globulin 3.5 g/dL 2.7-4.3 Glucose 61 mg/dL Low 75-110 84 Hematocrit 43.0 % 37.0-51.0 Hemoglobin 14.6 GM/dl 12.0-16.0 Lymphocytes 17.2 % Low 20-44 MCH 31.3 pg 26.0-32.0 MCHC 34.0 g/dL 31.0-36.0 MCV 92 FL 80-97 Monocytes 12.2 % High 2-10.0 Neutrophils 66.3 % 50-70 PSA 0.54 ng/mL 0.00-4.00 Platelet Count 238 K/ul 140-440 Potassium 4.5 mmol/L 3.6-5.0 RBC 4.67 M/ul 4.2-6.3 RDW 11.3 % Low 11.5-14.5 Sodium 141 mmol/L 137-145 Total Bilirubin 0.4 mg/dL 0.2-1.3 Total Protein 7.7 g/dL 6.3-8.2 WBC 6.6 K/ul 4.1-10.9 Laboratory test finding 10/04/2010 N2N/CCD Import A/G Ratio 1.4 1.0-2.2 Absolute Basophils 0.017 K/ul 0.0-0.3 Absolute Eosinophils 0.382 K/ul 0.0-0.5 Absolute Lymphocytes 1.15 K/ul 0.8-4.8 Absolute Monocytes 0.541 K/ul 0.1-1.0 Absolute Neutrophils 5.09 K/ul 2.05-7.63 Albumin 4.2 g/dL 3.5-5.0 Alkaline Phosphatase 94 U/L 30-126 Alt 28 U/L 21-72 Antinuclear Abs Ifa Negative . 85 Ast 24 U/L 17-59 BUN 11 mg/dL 9-21 BUN/CR Ratio 11.2 Ratio Low 12-20 Basophil 0.2 % 0-2 Calcium 9.7 mg/dL 8.7-10.5 Carbon Dioxide 28 mmol/L 22-30 Chloride 99 mmol/L 98-107 Creatinine, Serum 1.0 mg/dL 0.8-1.5 Eosinophil 5.3 % High 0-4 Globulin 3.0 g/dL 2.7-4.3 Glucose 208 mg/dL High 75-110 86 Hematocrit 40.7 % 37.0-51.0 Hemoglobin 13.5 GM/dl 12.0-16.0 Lymphocytes 16.0 % Low 20-44 MCH 31.1 pg 26.0-32.0 MCHC 33.2 g/dL 31.0-36.0 MCV 94 FL 80-97 Monocytes 7.5 % 2-10.0 Neutrophils 70.9 % High 50-70 Platelet Count 208 K/ul 140-440 Potassium 4.3 mmol/L 3.6-5.0 RBC 4.35 M/ul 4.2-6.3 RDW 11.5 % 11.5-14.5 Rheumatoid Factor Screen Negative Negative 87 Sedimentation Rate 4 mm/hr 0-20 88 Sodium 138 mmol/L 137-145 Total Bilirubin 0.3 mg/dL 0.2-1.3 Total Protein 7.2 g/dL 6.3-8.2 WBC 7.2 K/ul 4.1-10.9 Laboratory test finding 02/14/2010 N2N/CCD Import A/G Ratio 1.3 1.0-2.2 Absolute Basophils 0.026 K/ul 0.0-0.3 Absolute Eosinophils 0.232 K/ul 0.0-0.5 Absolute Lymphocytes 1.02 K/ul 0.8-4.8 Absolute Monocytes 0.755 K/ul 0.1-1.0 Absolute Neutrophils 4.32 K/ul 2.05-7.63 Albumin 4.4 g/dL 3.5-5.0 Alkaline Phosphatase 94 U/L 30-126 Alt 35 U/L 21-72 Ast 29 U/L 17-59 BUN 13 mg/dL 9-21 BUN/CR Ratio 12.3 Ratio 12-20 Basophil 0.4 % 0-2 Calcium 10.5 mg/dL 8.7-10.5 Carbon Dioxide 31 mmol/L High 22-30 Chloride 103 mmol/L 98-107 Creatinine, Serum 1.0 mg/dL 0.8-1.5 Eosinophil 3.7 % 0-4 Globulin 3.4 g/dL 2.7-4.3 Glucose 60 mg/dL Low 75-110 Hematocrit 39.9 % 37.0-51.0 Hemoglobin 14.2 GM/dl 12.0-16.0 Lymphocytes 16.0 % Low 20-44 MCH 31.9 pg 26.0-32.0 MCHC 35.6 g/dL 31.0-36.0 MCV 90 FL 80-97 Monocytes 11.9 % High 2-10.0 Neutrophils 68.0 % 50-70 PSA 0.47 ng/mL 0.00-4.00 Platelet Count 210 K/ul 140-440 Potassium 4.3 mmol/L 3.6-5.0 RBC 4.44 M/ul 4.2-6.3 RDW 10.9 % Low 11.5-14.5 Sodium 142 mmol/L 137-145 Total Bilirubin 0.3 mg/dL 0.2-1.3 Total Protein 7.8 g/dL 6.3-8.2 WBC 6.4 K/ul 4.1-10.9 Laboratory test finding 02/12/2009 N2N/CCD Import A/G Ratio 1.3 1.0-2.2 Absolute Basophils 0.032 K/ul 0.0-0.3 Absolute Eosinophils 0.213 K/ul 0.0-0.5 Absolute Lymphocytes 1.34 K/ul 0.8-4.8 Absolute Monocytes 0.915 K/ul 0.1-1.0 Absolute Neutrophils 5.08 K/ul 2.05-7.63 Albumin 4.3 g/dL 3.5-5.0 Alkaline Phosphatase 99 U/L 30-126 Alt 24 U/L 21-72 Ast 27 U/L 17-59 BUN 14 mg/dL 9-21 BUN/CR Ratio 13.4 Ratio 12-20 Basophil 0.4 % 0-2 Calcium 10.3 mg/dL 8.7-10.5 Carbon Dioxide 29 mmol/L 22-30 Chloride 104 mmol/L 98-107 Creatinine, Serum 1.0 mg/dL 0.8-1.5 Eosinophil 2.8 % 0-4 Globulin 3.4 g/dL 2.7-4.3 Glucose 52 mg/dL Low 75-110 Hematocrit 40.3 % 37.0-51.0 Hemoglobin 14.2 GM/dl 12.0-16.0 Lymphocytes 17.6 % Low 20-44 MCH 31.0 pg 26.0-32.0 MCHC 35.2 g/dL 31.0-36.0 MCV 88 FL 80-97 Monocytes 12.1 % High 2-10.0 Neutrophils 67.0 % 50-70 PSA 0.44 ng/mL 0.00-4.00 Platelet Count 236 K/ul 140-440 Potassium 4.3 mmol/L 3.6-5.0 RBC 4.57 M/ul 4.2-6.3 RDW 11.7 % 11.5-14.5 Sodium 141 mmol/L 137-145 Total Bilirubin 0.2 mg/dL 0.2-1.3 Total Protein 7.7 g/dL 6.3-8.2 WBC 7.6 K/ul 4.1-10.9 Laboratory test 09/20/2008 N2N/CCD Import Urine Bilirubin - Negative Negative finding Dipstick Urine Blood Negative Negative Urine Clarity Clear Clear Urine Color Yellow Yellow Urine Glucose - Dipstick Negative mg/dL Negative Urine Ketone Negative mg/dL Negative Urine Leuk Esterase Negative Negative Urine Nitrite - Dipstick Negative Negative Urine PH 7.5 6.5-7.5 Urine Protein - Dipstick Negative mg/dL Negative Urine Specific [place] 1.010 1.010-1.030 Urine Urobilinogen - Dipstick 0.2 E.U./dL 0.2-1.0 Laboratory test 05/05/2008 N2N/CCD Import Aerobic Culture Organism 1 <See 89 finding Note> Gram Stain Gram Stain <See Note> 90 Laboratory test finding 12/10/2007 N2N/CCD Import Anion Gap 10 mEq/L 8- 16 BUN 10 mg/dL 5-23 BUN/Creat 11.1 Calcium 9.7 mg/dL 8.5-10.1 Carbon Dioxide 30 mEq/L 21-32 Chloride 104 mEq/L 98-107 Creatinine 0.9 mg/dL 0.5-1.4 Estimated GFR (See Note) Glucose 93 mg/dL 76-115 Hematocrit 42.2 % 38.0-48.0 Hemoglobin 13.7 gm/dL 12.8-17.0 Mean Cell Volume 91.5 fl 80.0-96.0 Mean Corpuscular HGB 29.7 pg 27.0-33.0 Mean Corpuscular HGB Conc 32.5 g/dL 31.7-36.0 Mean Platelet Volume 10.2 fL 6.6-10.6 Platelet Count 220 K/uL 150-400 Potassium 4.1 mEq/L 3.5-5.1 Red Blood Count 4.61 M/uL 4.20-5.80 Red Cell Distri Width %CV 12.5 % 11.6-15.8 Sodium 140 mEq/L 136-145 White Blood Count 8.2 K/uL 3.4-10.5 Laboratory test finding 12/08/2007 N2N/CCD Import Alb/Glob 0.9 Albumin 3.3 g/dL Low 3.5-5.0 Alkaline Phosphatase 100 U/L 50-136 Anion Gap 9 mEq/L 8-16 BUN 10 mg/dL 5-23 BUN/Creat 10.0 Bilirubin,Total 0.3 mg/dL 0.2-1.2 Calcium 9.6 mg/dL 8.5-10.1 Carbon Dioxide 29 mEq/L 21-32 Chloride 105 mEq/L 98-107 Creatinine 1.0 mg/dL 0.5-1.4 Estimated GFR (See Note) Globulin 3.8 gm/dL 1.9-4.3 Glucose 113 mg/dL 76-115 Hematocrit 39.8 % 38.0-48.0 Hemoglobin 13.0 gm/dL 12.8-17.0 Mean Cell Volume 91.3 fl 80.0-96.0 Mean Corpuscular HGB 29.8 pg 27.0-33.0 Mean Corpuscular HGB Conc 32.7 g/dL 31.7-36.0 Mean Platelet Volume 10.1 fL 6.6-10.6 Platelet Count 217 K/uL 150-400 Potassium 3.7 mEq/L 3.5-5.1 Red Blood Count 4.36 M/uL 4.20-5.80 Red Cell Distri Width %CV 12.6 % 11.6-15.8 SGPT/Alt 40 U/L 30-65 Sgot/Ast 19 U/L 16-40 Sodium 139 mEq/L 136-145 Total Protein 7.1 g/dL 6.3-8.0 White Blood Count 9.5 K/uL 3.4-10.5 Laboratory test finding 12/07/2007 N2N/CCD Import Bas% 0.1 % 0.1-1.0 Baso # 0.0 K/uL Low 0.1-0.2 Eo% 2.3 % 0.0-5.0 Eos # 0.3 K/uL 0.0-0.5 Hematocrit 40.8 % 38.0-48.0 Hemoglobin 13.8 gm/dL 12.8-17.0 Lymph # 1.2 K/uL 1.2-4.0 Lymph % 10.5 % Low 17.0-56.0 Mean Cell Volume 90.1 fl 80.0-96.0 Mean Corpuscular HGB 30.5 pg 27.0-33.0 Mean Corpuscular HGB Conc 33.8 g/dL 31.7-36.0 Mean Platelet Volume 9.6 fL 6.6-10.6 [place] # 1.1 K/uL High 0.0-0.6 [place] % 9.2 % 0.0-10.0 Neut# 9.2 K/uL High 1.8-7.0 Neut% 77.9 % High 33.0-73.0 Platelet Count 226 K/uL 150-400 Red Blood Count 4.53 M/uL 4.20-5.80 Red Cell Distri Width %CV 12.5 % 11.6-15.8 Red Cell Distri Width SD 40 fl 36-51 White Blood Count 11.8 K/uL High 3.4-10.5 1 ASPIRATION PNA 2 Note: Persistent reduction for 3 months or more in an eGFR <60 mL/min/1.73 m2 defines CKD. Patients with eGFR values >/=60 mL/min/1.73 m2 may also have CKD if evidence of persistent proteinuria is present. The original MDRD equation for estimated GFR is not valid for patients less than 18 years of age. Additional information may be found at [email or web address]. 3 Please Note: A POSITIVE result for influenza A and/or B antigen does not rule out a co-infection with other pathogens or identify any specific influenza A virus subtype. A NEGATIVE result for influenza A and/or B antigen does not preclude influenza virus infection and should not be the sole basis for treatment or other management decisions, since the antigen present in the specimen may be below the detection limit of the test. A NEGATIVE result is PRESUMPTIVE and it is recommended these results be confirmed by virus culture or an FDA-cleared influenza A and B molecular assay. Method: [employer] Chromatographic immunoassay 4 FEVER 5 Note: Persistent reduction for 3 months or more in an eGFR <60 mL/min/1.73 m2 defines CKD. Patients with eGFR values >/=60 mL/min/1.73 m2 may also have CKD if evidence of persistent proteinuria is present. The original MDRD equation for estimated GFR is not valid for patients less than 18 years of age. Additional information may be found at [email or web address]. 6 Specimen slightly Hemolyzed, interpret with caution 7 ASPIRATION PNA 8 LOW 02 SAT 9 0.0 - 0.045 ng/mL: Normal 0.046 - 0.5 ng/mL: Suggestive 0.6 - 1.5 ng/mL: Consistent 10 Note: Persistent reduction for 3 months or more in an eGFR <60 mL/min/1.73 m2 defines CKD. Patients with eGFR values >/=60 mL/min/1.73 m2 may also have CKD if evidence of persistent proteinuria is present. The original MDRD equation for estimated GFR is not valid for patients less than 18 years of age. Additional information may be found at [email or web address]. 11 Z13.220 F84.0 G47.8 Z79.899 12 Reference Guidelines*: Desirable: ........... < 200 mg/dL Borderline High: ..... 200-239 mg/dL High: ................ >=240 mg/dL * The National Cholesterol Education Program (NCEP) 13 Reference Guidelines*: Normal: ............. < 150 mg/dL Borderline High: .... 150-199 mg/dL High: ............... 200-499 mg/dL Very High: .......... > 500 mg/dL * Source: National Cholesterol Education Program (NCEP) 14 Reference Guidelines*: Low HDL: ..... < 40 mg/dL Normal: ..... 40-60 mg/dL Desirable: ... > 60 mg/dL *The National Cholesterol Education Program(NCEP) 15 Reference Guidelines*: Optimal:........... <100 mg/dL Near Optimal....... 100-129 mg/dL Borderline High.... 130-159 mg/dL High............... 160-189 mg/dL Very High.......... >=190 mg/dL * Source: National Cholesterol Education Program (NCEP) 16 Note: Persistent reduction for 3 months or more in an eGFR <60 mL/min/1.73 m2 defines CKD. Patients with eGFR values >/=60 mL/min/1.73 m2 may also have CKD if evidence of persistent proteinuria is present. The original MDRD equation for estimated GFR is not valid for patients less than 18 years of age. Additional information may be found at [email or web address]. 17 FAX TO Yun[facility] [phone] 18 FAX TO ALIZA REBECCA [phone] 19 FAX TO ALIZA REBECCA [phone] 20 FAX TO ALIZA REBECCA [phone] 21 FAX TO ALIZA REBECCA [phone] 22 today letter 23 NORMAL KIDNEY FUNCTION OR MILD DISEASE - GFR >OR=60 CHRONIC KIDNEY DISEASE - GFR 15 - 59 RENAL FAILURE - GFR <15 Est. GFR calculation based on the MDRD study equation, which assumes a steady state for creatinine. Est. GFR should not be used for medication dosing. 24 Unless otherwise specified, testing performed by [facility] [address] [place] [id number] 25 yelling out 26 URINE, CLEAN CATCH 27 SERUM SPECIMEN 28 0.0 - 0.045 ng/mL: Normal 0.046 - 0.5 ng/mL: Suggestive 0.6 - 1.5 ng/mL: Consistent 29 Note: Persistent reduction for 3 months or more in an eGFR <60 mL/min/1.73 m2 defines CKD. Patients with eGFR values >/=60 mL/min/1.73 m2 may also have CKD if evidence of persistent proteinuria is present. The original MDRD equation for estimated GFR is not valid for patients less than 18 years of age. Additional information may be found at [email or web address]. 30 Please Note: A POSITIVE result for influenza A and/or B antigen does not rule out a co-infection with other pathogens or identify any specific influenza A virus subtype. A NEGATIVE result for influenza A and/or B antigen does not preclude influenza virus infection and should not be the sole basis for treatment or other management decisions, since the antigen present in the specimen may be below the detection limit of the test. A NEGATIVE result is PRESUMPTIVE and it is recommended these results be confirmed by virus culture or an FDA-cleared influenza A and B molecular assay. Method: [employer] Chromatographic immunoassay 31 Z02.9 32 Note: Persistent reduction for 3 months or more in an eGFR <60 mL/min/1.73 m2 defines CKD. Patients with eGFR values >/=60 mL/min/1.73 m2 may also have CKD if evidence of persistent proteinuria is present. The original MDRD equation for estimated GFR is not valid for patients less than 18 years of age. Additional information may be found at [email or web address]. 33 ACUTE ENCEPHALOPATHY 34 Note: Persistent reduction for 3 months or more in an eGFR <60 mL/min/1.73 m2 defines CKD. Patients with eGFR values >/=60 mL/min/1.73 m2 may also have CKD if evidence of persistent proteinuria is present. The original MDRD equation for estimated GFR is not valid for patients less than 18 years of age. Additional information may be found at [email or web address]. 35 AMS SINCE THIS MORNING 36 0.0 - 0.045 ng/mL: Normal 0.046 - 0.5 ng/mL: Suggestive 0.6 - 1.5 ng/mL: Consistent 37 Note: Persistent reduction for 3 months or more in an eGFR <60 mL/min/1.73 m2 defines CKD. Patients with eGFR values >/=60 mL/min/1.73 m2 may also have CKD if evidence of persistent proteinuria is present. The original MDRD equation for estimated GFR is not valid for patients less than 18 years of age. Additional information may be found at [email or web address]. 38 THERAPEUTIC RANGE: 15-30 mg/dL POTENTIAL TOXICITY VARIES WITH TIME FROM INGESTION. PLEASE CONSULT APPROPRIATE NOMOGRAM. 39 Acetaminophen concentration >150 ug/mL at four hours after ingestion and 50.0 ug/mL at twelve hours after ingestion are often associated with toxic reactions. 40 Is patient on anticoagulants? Coumadin 41 THERAPEUTIC INR RANGE: 2.0 - 3.0 DVT, Pulmonary embolus, prophylaxis against venous thrombosis or systemic embolization in high risk patients. 2.5 - 3.5 Mechanical heart valves 42 URINE SPECIMENS ARE SCREENED AT THE LISTED CUTOFFS DRUG CLASS INITIAL TEST LEVEL Amphetamines 1000 ng/mL Barbiturates 200 ng/mL Benzodiazepines 200 ng/mL Cannabinoids 50 ng/mL Cocaine Metabolite 300 ng/mL Methadone 300 ng/mL Opiates 300 ng/mL Any PRESUMPTIVE POSITIVE findings are UNCONFIRMED. Confirmatory testing is suggested if findings are unexpected. Please contact laboratory if confirmatory testing is desired. SPECIMENS ARE HELD FOR 72 HOURS. 43 URINE, CLEAN CATCH 44 Tests: carbamazepine Instructions: 45 ACUTE ENCEPHALOPATHY 46 Total not calculated due to one or more constituents not detected. Therapeutic range is still applicable. Detection Limit=20 47 Total not calculated due to one or more constituents not detected. Therapeutic range is still applicable. Detection Limit=20 48 Total not calculated due to one or more constituents not detected. Therapeutic range is still applicable. Detection Limit=20 49 This test was developed and its performance characteristics determined by [employer]. It has not been cleared or approved by the Food and Drug Administration. Performed at: [address] [id number] Banking Supervisor: Sarah Blakely MD, Phone: [phone] 50 today letter 51 Unless otherwise specified, testing performed by [facility] [address] [place] [id number] 52 S/CO Ratio >/=1.0 is REACTIVE. S/CO <5.0 is Low Reactive. S/CO >/= 5.0 is High Reactive. Effective Jan 09, 2017 all anti-HCV reactive samples are sent for quantitative PCR confirmation. 53 Beginning 07/13/06 PSA values assayed at [facility] uses chemiluminescence methodology manufactured by [email or web address] for use on the DXI analyzer. Values obtained with different assay methods or kits can not be used interchangeably. Serum PSA measurement is not an absolute test for malignancy. The PSA value should be used in conjunction with information available from clinical evaluation and other diagnostic procedures. 54 Updated reference range on new analyzer 55 Updated reference range on new analyzer 56 Concerning GFR Guidelines for Americans: Normal function or mild renal disease, if clinically at risk: >/=60 mL/min Moderately decreased: 30-59 Severely decreased: 15-29 Renal failure: <15 57 Concerning GFR Guidelines: Normal function or mild renal disease, if clinically at risk: >/=60 mL/min Moderately decreased: 30-59 Severely decreased: 15-29 Renal failure: <15 Glomerular Filtration Rate (GFR) is estimated based on the MDRD equation, which assumes a steady state for creatinine as recommended by the National Kidney Disease Education Program in conjunction with the National Institutes of Health and the National Kidney Foundation. Clinical conditions in which it may be necessary to measure GFR by using clearance methods include extremes of age and body size, severe malnutrition or obesity, diseases of skeletal muscle, paraplegia or quadriplegia, vegetarian diet, rapidly changing kidney function, and calculation of the dose of potentially toxic drugs that are excreted by the kidneys. 58 Updated Reference Range 59 R55, E16.1, Z79.899, E83.52 60 Performed at: RN - [facility] [address] [id number] Banking Supervisor: Mandy Hurtado MD, Phone: [phone] 61 Note: Persistent reduction for 3 months or more in an eGFR <60 mL/min/1.73 m2 defines CKD. Patients with eGFR values >/=60 mL/min/1.73 m2 may also have CKD if evidence of persistent proteinuria is present. The original MDRD equation for estimated GFR is not valid for patients less than 18 years of age. Additional information may be found at [email or web address]. 62 Performed at: RN - [facility] [address] [id number] Banking Supervisor: Mandy Hurtado MD, Phone: [phone] 63 schedule, do with hydration. 64 Updated reference range on new analyzer 65 Updated reference range on new analyzer 66 Critical Result S_[id number] Verified by repeat analysis and Called to: GEORGIA Alas at: 05/21/2017 14:17:14 by:NILESH JOYA 67 Concerning GFR Guidelines for Americans: Normal function or mild renal disease, if clinically at risk: >/=60 mL/min Moderately decreased: 30-59 Severely decreased: 15-29 Renal failure: <15 68 Concerning GFR Guidelines: Normal function or mild renal disease, if clinically at risk: >/=60 mL/min Moderately decreased: 30-59 Severely decreased: 15-29 Renal failure: <15 Glomerular Filtration Rate (GFR) is estimated based on the MDRD equation, which assumes a steady state for creatinine as recommended by the National Kidney Disease Education Program in conjunction with the National Institutes of Health and the National Kidney Foundation. Clinical conditions in which it may be necessary to measure GFR by using clearance methods include extremes of age and body size, severe malnutrition or obesity, diseases of skeletal muscle, paraplegia or quadriplegia, vegetarian diet, rapidly changing kidney function, and calculation of the dose of potentially toxic drugs that are excreted by the kidneys. 69 Updated reference range on new analyzer 70 Microbiology results SOURCE URINE FINAL RESULT No growth 71 OPERATION/PROCEDURE Removal of foreign body, esophagus DIAGNOSIS: [...] Signed Electronically signed Kelley OLIVERA MD [id number] 72 Unless otherwise specified, testing performed by [facility] [address] [id number] 73 Beginning 07/13/06 PSA values assayed at [facility] uses an EIA methodology manufactured by [employer] for use on the DXI analyzer. Values obtained with different assay methods or kits can not be used interchangeably. Serum PSA measurement is not an absolute test for malignancy. The PSA value should be used in conjunction with information available from clinical evaluation and other diagnostic procedures. 74 Note: Persistent reduction for 3 months or more in an eGFR <60 mL/min/1.73 m2 defines CKD. Patients with eGFR values >/=60 mL/min/1.73 m2 may also have CKD if evidence of persistent proteinuria is present. The original MDRD equation for estimated GFR is not valid for patients less than 18 years of age. Additional information may be found at [email or web address]. 75 URINE SPECIMENS ARE SCREENED AT THE LISTED CUTOFFS DRUG CLASS INITIAL TEST LEVEL Amphetamines 1000 ng/mL Barbiturates 200 ng/mL Benzodiazepines 200 ng/mL Cannabinoids 50 ng/mL Cocaine Metabolite 300 ng/mL Methadone 300 ng/mL Opiates 300 ng/mL Any POSITIVE findings are UNCONFIRMED. Confirmatory testing is suggested if findings are unexpected. Please contact laboratory if confirmatory testing is desired. SPECIMENS ARE HELD FOR 72 HOURS. 76 Note: Persistent reduction for 3 months or more in an eGFR <60 mL/min/1.73 m2 defines CKD. Patients with eGFR values >/=60 mL/min/1.73 m2 may also have CKD if evidence of persistent proteinuria is present. The original MDRD equation for estimated GFR is not valid for patients less than 18 years of age. Additional information may be found at [email or web address]. 77 0.0 - 0.045 ng/mL: Normal 0.046 - 0.5 ng/mL: Suggestive 0.6 - 1.5 ng/mL: Consistent 78 Note: Persistent reduction for 3 months or more in an eGFR <60 mL/min/1.73 m2 defines CKD. Patients with eGFR values >/=60 mL/min/1.73 m2 may also have CKD if evidence of persistent proteinuria is present. The original MDRD equation for estimated GFR is not valid for patients less than 18 years of age. Additional information may be found at [email or web address]. 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 Antithyroglobulin antibodies measured by [employer] 82 Performed at: [facility] [id number] Banking Supervisor: Mandy Hurtado MD, Phone: [phone] Performed at: [address] [id number] Banking Supervisor: Trevor Brandt MD, Phone: [phone] 83 Note: Persistent reduction for 3 months or more in an eGFR <60 mL/min/1.73 m2 defines CKD. Patients with eGFR values >/=60 mL/min/1.73 m2 may also have CKD if evidence of persistent proteinuria is present. The original MDRD equation for estimated GFR is not valid for patients less than 18 years of age. Additional information may be found at [email or web address]. 84 The difference between the current result of 61 and the last result of 208 (10/04/10) exceeds the absolute delta value of 100 defined for this test! The difference between the most recent result of 208 and the current result of 61 exceeds the absolute delta value of 100 as defined for this test. 85 Negative <1:80 Borderline 1:80 Positive >1:80 Performed at: [facility] [id number] Banking Supervisor: Matthew Banks MD, Phone: [phone] 86 The difference between the current result of 208 and the last result of 60 (02/14/10) exceeds the absolute delta value of 100 defined for this test! The difference between the most recent result of 60 and the current result of 208 exceeds the absolute delta value of 100 as defined for this test. 87 QUERY: @EMR Pat ID: QUERY: @EMR Req #: 88 QUERY: @EMR Pat ID: QUERY: @EMR Req #: 89 Organism 1 ! NO PATHOGENS ISOLATED 90 GRAM STAIN ! NO ORGANISMS SEEN Procedures Date Code Description Status 10/29/2018 15413 Measure Blood Oxygen Level Single Determination Completed 10/08/2018 92097 Measure Blood Oxygen Level Single Determination Completed 09/27/2018 06346 Electrocardiogram Complete Completed 08/16/2018 78042 Measure Blood Oxygen Level Single Determination Completed 06/08/2018 14942 Measure Blood Oxygen Level Single Determination Completed 10/27/2017 36639 Measure Blood Oxygen Level Single Determination Completed 05/26/2017 86096 Bone Density Study (Dexa) Axial Skeleton Completed (Hips,Pelvis,Spine) 05/26/2017 139217020 Bone Mineral Density Test Completed 08/27/2016 47116 Measure Blood Oxygen Level Single Determination Completed 02/06/2016 03955 Electrocardiogram Complete Completed 11/14/2009 41632 Remove Impacted Cerumen Requiring Instrumentation Completed 07/02/2007 62005 Remove Impacted Cerumen Requiring Instrumentation Completed 03/09/2003 22300 Measure Blood Oxygen Level Single Determination Completed Encounters Type Date Location Provider Dx Diagnosis Office Visit 10/08/2018 3:15p [facility] Latonya Luna MD L20.82 Flexural eczema J44.0 Chronic obstructive pulmon disease w acute lower resp infct E22.1 Hyperprolactinemia F84.0 Autistic disorder F60.9 Personality disorder, unspecified Z68.28 Body mass index (BMI) 28.0-28.9, adult Office Visit 09/27/2018 10:15a [facility] Latonya Luna MD L20.82 Flexural eczema L20.9 Atopic dermatitis, unspecified F60.9 Personality disorder, unspecified K59.00 Constipation, unspecified E87.0 Hyperosmolality and hypernatremia G47.8 Other sleep disorders F84.0 Autistic disorder Z13.220 Encounter for screening for lipoid disorders Z68.27 Body mass index (BMI) 27.0-27.9, adult Office Visit 05/10/2018 9:30a [facility] Cinthia Kirby, S60.415A Abrasion of LEFT [employer] ring finger, initial encounter Office Visit 03/29/2018 11:00a [facility] Latonya Luna MD Z00.01 Encounter for general adult medical exam w abnormal findings L20.82 Flexural eczema L20.9 Atopic dermatitis, unspecified F60.9 Personality disorder, unspecified K59.00 Constipation, unspecified R55 Syncope and collapse F79 Unspecified intellectual disabilities F84.0 Autistic disorder Z86.61 Personal history of infections of the central nervous system Z12.5 Encounter for screening for malignant neoplasm of prostate Z12.11 Encounter for screening for malignant neoplasm of colon Z79.899 Other fci (current) drug therapy E66.3 Overweight H91.93 Unspecified hearing loss, bilateral Z68.27 Body mass index (BMI) 27.0-27.9, adult Office Visit 12/11/2017 1:15p [facility] Latonya Luna MD L20.82 Flexural eczema L84 Corns and callosities K59.00 Constipation, unspecified F60.9 Personality disorder, unspecified Z79.899 Other fci (current) drug therapy Z11.59 Encounter for screening for other viral diseases Z12.5 Encounter for screening for malignant neoplasm of prostate Z68.28 Body mass index (BMI) 28.0-28.9, adult Office Visit 10/27/2017 11:30a [facility] Latonya Luna MD J69.8 Pneumonitis due to inhalation of other solids and liquids Z68.26 Body mass index (BMI) 26.0-26.9, adult Office Visit 09/11/2017 10:00a [facility] Latonya Luna MD L20.82 Flexural eczema L84 Corns and callosities Z68.27 Body mass index (BMI) 27.0-27.9, adult Office Visit 07/08/2017 4:00p Latonya Reardon MD L20.82 Flexural eczema L40.9 Psoriasis, unspecified Office Visit 06/24/2017 9:00a [facility] Latonya Luna MD L20.82 Flexural eczema L40.9 Psoriasis, unspecified R55 Syncope and collapse R53.1 Weakness E16.1 Other hypoglycemia L03.116 Cellulitis of LEFT lower limb Office Visit 06/10/2017 8:45a [facility] Latonya Luna MD L20.82 Flexural eczema R55 Syncope and collapse R53.1 Weakness E16.1 Other hypoglycemia Office Visit 05/20/2017 11:30a [facility] Latonya Luna MD S80.02xA Contusion of LEFT knee, initial encounter R55 Syncope and collapse I44.4 LEFT anterior fascicular block I51.7 Cardiomegaly Z87.81 Personal history of (healed) traumatic fracture R21 Rash and other nonspecific skin eruption Z11.59 Encounter for screening for other viral diseases Office Visit 05/01/2017 9:30a [facility] Jus Chairez, R21 Rash and other DO nonspecific skin eruption Office Visit 03/27/2017 10:30a Jus Cortez, Z01.818 Encounter for other DO preprocedural examination K02.9 Dental caries, unspecified F79 Unspecified intellectual disabilities F60.9 Personality disorder, unspecified K59.00 Constipation, unspecified L20.9 Atopic dermatitis, unspecified H91.93 Unspecified hearing loss, bilateral Z00.00 Encntr for general adult medical exam w/o abnormal findings Z23 Encounter for immunization Z68.27 Body mass index (BMI) 27.0-27.9, adult Office Visit 02/10/2017 1:45p Jus Cortez DO S00.83xA Contusion of other part of head, initial encounter S92.302B Fx unsp metatarsal bone(s), LEFT foot, init for opn fx Office Visit 12/19/2016 11:00a Jus Cortez DO L03.811 Cellulitis of head [any part, except face] J01.90 Acute sinusitis, unspecified H62.41 Otitis externa in oth diseases classd elswhr, RIGHT ear Office Visit 12/05/2016 9:00a [facility] Claudia Timmons PA L03.116 Cellulitis of LEFT lower limb Office Visit 09/25/2016 1:45p [facility] Jus Chairez DO L03.031 Cellulitis of RIGHT toe S92.411A Disp fx of proximal phalanx of RIGHT great toe, init Office Visit 08/27/2016 11:00a Jus Cortez, J01.90 Acute sinusitis, DO unspecified Office Visit 07/11/2016 8:45a [facility] Jus Chairez, S92.414A Nondisp fx of proximal DO phalanx of RIGHT great toe, init Office Visit 07/03/2016 8:45a Jus Cortez L92.0 Granuloma annulare DO Office Visit 03/18/2016 3:30p [facility] Jus Chairez, F79 Unspecified DO intellectual disabilities F60.9 Personality disorder, unspecified K59.00 Constipation, unspecified L20.9 Atopic dermatitis, unspecified H91.93 Unspecified hearing loss, bilateral Z12.11 Encounter for screening for malignant neoplasm of colon Z23 Encounter for immunization Office Visit 02/26/2016 2:30p [facility] Jus Chairez, J06.9 Acute upper DO respiratory infection, unspecified Office Visit 02/06/2016 9:30a [facility] Jus Chairez, R00.2 Palpitations DO Office Visit 11/12/2015 1:00p [facility] Mirta, S80.922A Unsp superficial Cinthia, [employer] injury of LEFT lower leg, init encntr Office Visit 08/27/2015 4:15p [facility] Jus Chairez, T17.208A Unsp foreign body in DO pharynx causing oth injury, init encntr Office Visit 07/24/2015 10:30a [facility] Jus Chairez, R21 Rash and other DO nonspecific skin eruption Office Visit 04/06/2015 9:00a [facility] Mirta, Z01.818 Encounter for other Cinthia, [employer] preprocedural examination K04.0 Pulpitis H57.9 Unspecified disorder of eye and adnexa F79 Unspecified intellectual disabilities F60.9 Personality disorder, unspecified F50.8 Other eating disorders K59.00 Constipation, unspecified L20.9 Atopic dermatitis, unspecified H91.93 Unspecified hearing loss, bilateral Office Visit 03/16/2015 9:00a [facility] Jus Chairez, DO K59.00 Constipation, unspecified F60.9 Personality disorder, unspecified F79 Unspecified intellectual disabilities F50.8 Other eating disorders L20.9 Atopic dermatitis, unspecified H91.93 Unspecified hearing loss, bilateral Z12.5 Encounter for screening for malignant neoplasm of prostate Office Visit 10/02/2014 3:00p Cinthia Brewer, 924.20 Contusion Foot [employer] Office Visit 06/26/2014 4:00p Cinthia Brewer, 465.9 URI Upper [employer] Respiratory Infections Acute Unspec Sites Office Visit 06/15/2014 2:45p [facility] Jus Chairez DO 465.9 URI Upper Respiratory Infections Acute Unspec Sites Plan of Treatment Future Appointment(s):11/09/2018 4:15 pm - Latonya Luna MD at [facility]2018 11:00 am - Latonya Luna MD at [facility]10/29/2018 - Latonya Luna MDJ69.0 Pneumonitis due to inhalation of food and vomitNew Xrays:Chest Xray, 2 Views, Ordered: 10/29/18Comments:complete antibioticscontinue daily yogurt for 1 monthrepeat chest xray in 1 mocall for worsening sxs, new fever. may return to programFollow up:chext in 1 mo fu as hplndkzC77.0 Autistic vflkobryC15.00 Constipation, kjozjgexngmN58 Unspecified intellectual yseodsuqwtcjE61.9 Chronic obstructive pulmonary disease, uccxwxfostnJ96.27 Body mass index (BMI) 27.0-27.9 , adultComments:recommend reduced calorie diet and healthy diet and regular exercise to help with weight loss
--- OUTSIDE RECORDS SUMMARY | 2018-10-30 18:16 | XMS REPORT | Continuity of Care Document ---
:1955 External Reference #:[id number] Author Name Latonya Luna MD Address [address] [place] [address] Care Team Providers Name Role Phone Latonya Luna MD Care Team Information Demand Planning Analyst Unavailable Payers Date Identification Numbers Payment Provider Subscriber Effective: 1989 Policy Number: [id number] Medicare Part B Idris Withjhon PayID: [id number] [address] [place] [address] Policy Number: [id number] Medicaid Idris Withjhon PayID: [id number] [address] [place] [address] Problems Active Problems Provider Date Constipation Jus Chairez DO Onset: 02/08/2007 Personality disorder Jus Chairez DO Onset: 02/08/2007 Mental retardation Jus Chairez DO Onset: 02/08/2007 Pica Jus Chairez DO Onset: 02/08/2007 Atopic dermatitis Jus Chairez DO Onset: 02/08/2007 Hearing loss Jus Chairez DO Onset: 02/08/2007 History of infectious disease of central Latonya Luna MD Onset: 2017 nervous system Autistic disorder Latonya Luna MD Onset: 03/29/2018 Resolved Problems Fatigue Onset: 12/29/2014 Resolved: 01/30/2016 Toothache Onset: 12/29/2014 Resolved: 01/29/2015 Family History Date Family Member(s) Observation Comments Father Hypertension Father CAD Mother Diabetes, Adult Children None Siblings 1 First Brother No Current Problems Social History Type Date Description Comments Sex Unknown Marital Status Single Lives With lives in group [facility] home Alizanate FERNANDEZ Occupation Disabled ETOH Use Denies alcohol use Tobacco Use Start: Unknown Patient has never smoked Recreational Drug Use Denies Drug Use Smoking Status Reviewed: 03/29/18 Patient has never smoked Allergies, Adverse Reactions, Alerts Description No Known Drug Allergies Medications Active Medications SIG Qnty Indications Ordering Provider Date Claritin 1 by mouth 30caps J30.9 Latonya [...] Latonya Luna, Acetonide once daily 0.1% Cream Mershon Carbonate take 1 capsule by F60.9 Unknown mouth twice daily 150mg Capsules with water/food F84.0 Vanicream apply to whole 3units L20.82 Latonya Luna MD Bar body twice daily Flomax 1 by mouth every Unknown 0.4mg Capsules day Depakote 1 by mouth tid F60.9 Slaven, Travis 250mg Tablets DR Inman F84.0 Chlorpromazine HCL 2 po bid F60.9 Slaven, Travis 100mg Tablets Bismuth 2tablespoon po as Unknown needed after each loose bm Triple Antibiotic to be placed on Unknown Ointment minor scratches as needed Tolnaftate between toes daily Unknown Bear Tussin 2 tsp q 6 hours prn Unknown cough without fever Ibuprofen 200 2 po q 4 hours as Unknown 200mg Tablets needed for pain up to 5 days Milk Of Magnesia give 15 milliliters 355ml K59.00 Mihaela, on day 3 and 4 if no Jus, DO 1200mg/15ML Suspension bm. Mylanta 1 tablespoon by 1Bottle Unknown [phone]/5ML mouth every 4 hours Suspension minor stomach upset. Kaopectate 2 tablespoons PO 1Bottle R19.7 Unknown 262mg/15ML after each loose Suspension stool. Tinactin spray between toes 150gm B35.3 [place], 1% Aerosol daily MD Latonya Kerasal apply to calloused 1Tube L20.9 Luna, 5-10% Ointment areas every other MD Latonya day after bath L20.82 Olanzapine 15mg Tablets 1 PO qd 30Tabs F60.9 Unknown History Medications Prednisone 2 po daily for 3 6tabs J44.0 Unknown 10/04/2018 - 20mg days 10/07/2018 Tablets Oseltamivir 1 by mouth every 10caps Cheryl 06/25/2018 - Phosphate day MD Latonya 07/05/2018 75mg Capsules Amoxicillin/Clavula 1 by mouth twice a 20tabs J01.90 Cheryl, 2018 - jayy Potassium day MD Latonya 06/18/2018 875-125mg Tablets Resource Thickenup use as directed 176ml F79 Cheryl, 04/16/2018 - Thickened Water 176oz/22cans per MD Latonya 04/16/2018 month consistency - Liquid honey thick R13.10 Loratadine 1 by mouth 90caps J30.9 Latonya Luna MD 02/10/2018 - 10mg every day [...] Day Goodsense Pain one by mouth q4 Mihaela, 02/10/2017 - Relief Extra hrs. as needed DO Jus 05/19/2017 Strength mdd - 3 grams per 500mg day Tablets Ciprodex 4 drops RIGHT ear 15ml H62.41 Mihaela, 12/19/2016 - 0.3-0.1% three times a day DO Jus 05/19/2017 Suspension x 7 days Amoxicillin/Clavulan 1 by mouth twice 20tabs L03.811 [facility], 12/19/2016 - ate Potassium a day DO Jus 03/27/2017 500-125mg Tablets Tamiflu 1 by mouth every 10caps Luna, 09/13/2016 - 75mg Capsules day MD Latonya 09/23/2016 Amoxicillin/Clavulan 1 by mouth twice 20tabs J01.90 Mihaela, 08/27/2016 - ate Potassium a day DO Jus 12/05/2016 500-125mg Tablets Hydrocerin apply to torso 454gm L20.9 [facility], 03/18/2016 - Cream and extremities 3 DO Jus 05/19/2017 times a day Benefiber give 2 500units K59.00 Luna, 03/10/2016 - Powder teaspoonfuls MD Latonya 11/03/2017 17.6Oz. mixed in 8 oz fluid & drink by mouth 3 times a day Q-Pap Take 2 Tablets 100tabs [facility], 12/13/2015 - 325mg Tablets (650MG) By Mouth DO Jus 05/19/2017 Every 4 Hours as Needed For Pain Or Fever >100 Or Headache *Send To Dayb* *Max Daily Dose: Docqlace Take 1 Capsule By 60caps Mihaela, 09/03/2015 - 100mg Mouth Two Times A Jus, 11/12/2015 Capsules Day Aller-Chlor take 1 tablet by 90tabs J30.9 [place], 09/03/2015 - 4mg mouth every 4 MD Latonya 02/10/2018 Tablets hours as needed for nasal drainage *maxdaily dose: 6 tablets Prednisone 4 by mouth every QS R21 [facility], 07/24/2015 - 10mg d x 3 days then 3 Jus, DO 07/27/2015 Tablets by mouth every d x 3 then 2 by mouth every d x 3 then 1 by mouth every d x 3 then stop Equate Advanced apply to rash tid 14Oz [facility], 07/24/2015 - Healing Ointment DO Jus 05/19/2017 Resource use as directed 176units F79 Cheryl, 02/02/2015 - Thickenup(8=8Oz Can) 176oz/22cans per MD Latonya 04/16/2018 month consistency - honey thick R13.10 Penicillin V Every 6 Hours 40tabs Unknown 12/29/2014 - Potassium 03/16/2015 500mg Tablets Resourse Thicken Up use as directed. 25Canfloyd Hairi, 07/19/2014 - 8Oz dx: 787.24 DO Jus 03/16/2015 Amoxicillin/Clavulana 1 by mouth every 20tabs 465.9 Digiovanna, 2014 - te Potassium 12 hours for 10 Cnithia, CURING [employer]ENDER 07/06/2014 875-125mg days Tablets Clobetasol Propionate apply to scalp 50ml Mihaela, 09/04/2011 - bid x 2 weeks. DO Jus 06/26/2014 0.05% Solution Clobetasol Propionate apply to area bid 60gm Mihaela, 09/04/2011 - Jus DO 06/26/2014 0.05% Cream Docusate Sodium 1 by mouth twice 60caps K59.00 Mihaela, 06/27/2010 - 100mg a day Jus, DO 08/25/2016 Capsules Guaifenesin DM 1 po bid 20tabs J06.9 Mihaela, 05/30/2010 - 600-30mg Jus, DO 05/19/2017 Tablets ER 12HR Clotrimazole/Betameth apply to rash bid 60gm Mihaela, 02/12/2009 - asone Dipropionate Jus, DO 06/26/2014 Cream Carbamoxide Ear Drops 5 gtts Both Ears 30ml Mihaela, 05/31/2007 - bid x 10 Days For DO Jus 06/26/2014 6.5% Solution Ear Wax Ibuprofen 1 po tid 90tabs Mihaela, 08/16/2004 - 400mg Tablets Jus, DO 05/18/2014 Ventolin HFA Inhale Two Puffs J44.0 Unknown - By Mouth Every 4 10/08/2018 108(90Base) mcg/Act To 6 Hours as Aerosol Needed For Shortness Of Breath Vanicream bid L20.82 Pieretti, - Cream Dafne [...] Tablets Fluocinonide apply to rashy 120gm L20.9 Luna, - 0.05% areas on torso and MD [...] bid F60.9 Unknown - 05/22/2017 100mg Tablets Mershon Carbonate 1 PO bid F60.9 Slaven, Travis - 300mg 10/08/2018 Capsules Clonazepam 1 PO Q3 HRS prn - Unknown - 0.25mg Agitation 05/18/2014 Tablets Dispers Immunizations CPT Code Status Date Vaccine Reaction Lot # [id number] Given 05/03/2018 Tdap (Adacel) Ages 7 And Above Only 83346 Given 03/16/2018 Influenza Virus Vaccine,Quadrivalent,Split,Pr eserv Free, 0.5mL,Im Q2037 Given 04/10/2017 Fluvirin Immunization Given at [facility] [address] [address] Given 03/27/2017 Pneumococcal 23 Immunization Im inj completed, Pt [id number] Adult Or Immunosuppressed tolerated well Patient Q2037 Given 03/22/2016 Fluvirin Immunization Given At Pharmacy [facility] [address] Given 03/18/2016 Prevnar 13 Pneumococal Im inj completed, Pt [id number] Conjugate Vaccine tolerated well 08147 Given 02/21/2013 Afluria Or Fluvirin Flu Vac Intramuscular 16529 Given 01/22/2012 Afluria Or Fluvirin Flu Vac Intramuscular 31460 Given 02/17/2011 Afluria Or Fluvirin Flu Vac Intramuscular 83178 Given 02/14/2010 Afluria Or Fluvirin Flu Vac Intramuscular 25136 Given 02/12/2009 Tdap (Adacel) Ages 7 And Above Only 43235 Given 03/09/2008 Afluria Or Fluvirin Flu Vac Intramuscular 12721 Given 03/17/2007 Afluria Or Fluvirin Flu Vac Intramuscular 29572 Given 04/06/2006 Afluria Or Fluvirin Flu Vac Intramuscular 65881 Given 04/03/2005 Afluria Or Fluvirin Flu Vac Intramuscular 92120 Given 04/03/2005 Afluria Or Fluvirin Flu Vac Intramuscular 36196 Given 03/28/2003 Afluria Or Fluvirin Flu Vac Intramuscular 50429 Refused 03/29/2018 Shingrix (Shingles) Zoster Vaccine can get at pharmacy HZV, Recombinant, Subunit, Adj Vital Signs Date Vital Result Comment 10/08/2018 3:21pm Body Temperature 98.4 F Weight [...] /min 02/12/2009 10:27am Weight 177.00 lb Per [facility] BP Systolic 108 mmHg BP Diastolic 72 [...] 02/08/2007 9:07am Weight 169.31 lb 12/16/06 Per [facility]. BP Systolic 132 mmHg BP Diastolic 82 [...] Date Facility Test Result H/L Range Note CBS 10/04/2018 [facility] White Blood 7.7 K/uL N 3.4- 10.5 1 W/Automated (315)- - Count Diff Red Blood Count 4.12 M/uL Low 4.20-5.80 [...] 33.0-73.0 Lymph % 21.4 % N 20.0-42.0 Estill % 11.2 % High 0.0-10.0 Eo% 5.2 % N 0.0-6.6 Bas% 0.1 % N 0.0-1.1 Immature Grans 0.5 % N 0.0-5.0 NRBC % 0.0 /100WBC < 10/ 100 WBC Neut# 4.73 K/uL N 1.8-7.0 Lymph # 1.64 K/uL N 1.0-4.0 Estill # 0.86 K/uL High 0.0-0.8 Eos # 0.40 K/uL N 0.0-0.5 Baso # 0.01 K/uL N 0.0-0.1 Immature Grans Absolute 0.04 K/uL NRBC # 0.00 K/uL Comprehensive Metabolic 10/04/2018 [facility] Glucose 102 mg/dL N 74-106 Panel (315)- - BUN 14 mg/dL N 7-18 Creatinine 1.3 mg/dL N 0.6-1.3 Glom Filtration Rate, Estimate 59 mL/min >60 If >60 mL/min >60 2 BUN/Creat 10.7 ratio Sodium 142 mmol/L N [...] 12-78 Alkaline Phosphatase 92 U/L N 45-117 Laboratory test 10/04/2018 [facility] Troponin-I < 0.015 3 finding (315)- - ng/mL Lipid 09/27/2018 [facility] Cholesterol 209 mg/dL High <200 4, 5 (315)- - Triglycerides 190 mg/dL High <150 6 HDL Cholesterol 33 mg/dL Low >40 7 LDL-Cholesterol 138 mg/dL < 100 8 Comprehensive Met 09/27/[address] [facility] Glucose 110 mg/ dL High 74-106 Panel-FCMG (315)- - BUN 20 mg/dL High 7-18 Creatinine 1.4 mg/dL High 0.6-1.3 Glom Filtration Rate, Estimate 54 mL/min >60 If >60 mL/min >60 9 BUN/Creat 14.2 ratio Sodium 144 mmol/L N [...] 108 U/L N 45-117 Laboratory test 09/27/2018 [facility] Osmolality,Serum 314 mOsm/kg High 275-295 10 finding (315)- - Valproic Acid 48.2 ug/mL Low 50.0-100.0 11 Mershon 0.49 mmol/L Low 0.60-1.20 12 Thyroid Stim Hormone 4.27 uIU/mL High 0.30-4.20 13 Ammonia < 10 umol/L Low 11-32 14 Prolactin 72.2 ng/mL High 2.5-17.4 BMP W/ Calc Osmo 08/16/2018 [facility] Sodium 149 mmol/L High (136-145) 15 Potassium 4.3 mmol/L (3.6-5.2) Chloride 112 mmol/L High (100-108) Co2 33 mmol/L High (22-31) Anion Gap 4 mmol/L Low (7-16) Urea Nitrogen 22 mg/dL (7-24) Creatinine 1.56 mg/dL High (0.80-1.30) BUN/Creat Ratio 14.1 RATIO (10.0-20.0) Glucose 93 mg/dL (70-99) Calcium 9.3 mg/dL (8.4-10.2) GFR 45 ml/min/1.73m2 Low (>59) GFR ( Amer) 55 ml/min/1.73m2 Low (>59) GFR Interpretation (SEE NOTE) 16 Calculated Osmo 299 mosm/kg (280-300) 17 Ua RFX Micro & 08/10/2018 [facility] Urine Color YELLOW Yellow 18 Culture II (315)- - Urine Clarity CLEAR Clear Urine Glucose - Dipstick NEGATIVE mg/dL Negative Urine Bilirubin - Dipstick NEGATIVE Negative Urine Ketone NEGATIVE mg/dL Negative Urine Specific Cranks 1.010 N 1.010-1.030 Urine Blood NEGATIVE Negative Urine PH 6.5 N 6.5-7.5 Urine Protein - Dipstick NEGATIVE mg/dL Negative Urine Urobilinogen - Dipstick 0.2 E.U./dL N 0.2-1.0 Urine Nitrite - Dipstick NEGATIVE Negative Urine Leuk Esterase NEGATIVE Negative Source: URINE, CLEAN CAT <SEE NOTE> 19 Laboratory test 08/10/2018 [facility] Mershon 0.64 mmol/ L N 0.60-1.20 20 finding (315)- - Laboratory test 08/10/2018 [facility] CK 108 U/L N 39- 308 finding (315)- - Troponin-I < 0.015 ng/mL 21 Comprehensive Metabolic 08/10/2018 [facility] Glucose 92 mg/dL N 74-106 Panel (315)- - BUN 17 mg/dL N 7-18 Creatinine 1.4 mg/dL High 0.6-1.3 Glom Filtration Rate, Estimate 54 mL/min >60 If >60 mL/min >60 22 BUN/Creat 12.1 ratio Sodium 146 mmol/L High [...] 96 U/L N 45-117 Influenza A/B 08/10/2018 [facility] Influenza A Negative (Negative) Antigen (315)- - Antigen Influenza B Antigen Negative (Negative) 23 CBS W/Automated Diff 08/10/2018 [facility] White Blood 7.8 K/uL N [...] 33.0-73.0 Lymph % 19.2 % Low 20.0-42.0 Estill % 12.2 % High 0.0-10.0 Eo% 2.3 % N 0.0-6.6 Bas% 0.0 % N 0.0-1.1 Neut# 5.18 K/uL N 1.8-7.0 Lymph # 1.50 K/uL N 1.0-4.0 Estill # 0.95 K/uL High 0.0-0.8 Eos # 0.18 K/uL N 0.0-0.5 Baso # 0.00 K/uL N 0.0-0.1 Basic Metabolic 06/08/2018 [facility] Glucose 120 mg/dL High 74-106 24 Panel (315)- - BUN 22 mg/dL High 7-18 Creatinine 1.5 mg/dL High 0.6-1.3 Glom Filtration Rate, Estimate 50 mL/min >60 If >60 mL/min >60 25 BUN/Creat 14.6 ratio Sodium 145 mmol/L N 136-145 Potassium 3.9 mmol/L N 3.5-5.1 Chloride 115 mmol/L High 98-107 Carbon Dioxide 24 mmol/L N 21-32 Anion Gap 6 mEq/L Low 8-16 Calcium 9.3 mg/dL N 8.5-10.1 CBS W/Automated Diff 06/05/2018 [facility] White Blood 9.3 K/uL N 3.4-10.5 26 (315)- - Count Red Blood Count 4.61 [...] 33.0-73.0 Lymph % 11.4 % Low 20.0-42.0 Estill % 13.6 % High 0.0-10.0 Eo% 3.1 % N 0.0-6.6 Bas% 0.0 % N 0.0-1.1 Neut# 6.71 K/uL N 1.8-7.0 Lymph # 1.06 K/uL N 1.0-4.0 Estill # 1.27 K/uL High 0.0-0.8 Eos # 0.29 K/uL N 0.0-0.5 Baso # 0.00 K/uL N 0.0-0.1 Basic Metabolic Panel 06/05/2018 [facility] Glucose 124 mg/dL High 74-106 (315)- - BUN 18 mg/dL N 7-18 Creatinine 1.5 mg/dL High 0.6-1.3 Glom Filtration Rate, Estimate 50 mL/min >60 If >60 mL/min >60 27 BUN/Creat 12.0 ratio Sodium 149 mmol/L High 136-145 Potassium 4.1 mmol/L N 3.5-5.1 Chloride 116 mmol/L High 98-107 Carbon Dioxide 30 mmol/L N 21-32 Anion Gap 3 mEq/L Low 8-16 Calcium 9.8 mg/dL N 8.5-10.1 Laboratory test 06/04/2018 [facility] Mershon 0.79 mmol/ L N 0.60-1.20 28 finding (315)- - Laboratory test 06/04/2018 [facility] CK 280 U/L N 39- 308 finding (315)- - Troponin-I < 0.015 ng/mL 29 Carbamazepine 4.5 ug/mL N 4.0-12.0 Comprehensive Metabolic 06/04/2018 [facility] Glucose 122 mg/dL High 74-106 Panel (315)- - BUN 15 mg/dL N 7-18 Creatinine 1.6 mg/dL High 0.6-1.3 Glom Filtration Rate, Estimate 47 mL/min >60 If 56 mL/min >60 30 BUN/Creat 9.3 ratio Sodium 146 mmol/L High [...] 105 U/L N 45-117 Laboratory test 06/04/2018 [facility] Salicylate < 1.7 mg /dL Low 2.8-20.0 31 finding (315)- - Laboratory test 06/04/2018 [facility] Acetaminophen < 2.0 ug/mL Low 10.0-30.0 32 finding (315)- - Laboratory test 06/04/2018 [facility] Act Partial 30.2 N 23.4-35.0 33 finding (315)- - Thrombo Time seconds Protime 06/04/2018 [facility] Protime 13.9 N 12.0-14.4 (315)- - seconds Inr 1.1 N 0.9-1.1 34 CBS W/Automated Diff 06/04/2018 [facility] White Blood 9.3 K/uL N [...] 33.0-73.0 Lymph % 13.5 % Low 20.0-42.0 Estill % 11.1 % High 0.0-10.0 Eo% 2.7 % N 0.0-6.6 Bas% 0.1 % N 0.0-1.1 Neut# 6.75 K/uL N 1.8-7.0 Lymph # 1.25 K/uL N 1.0-4.0 Estill # 1.03 K/uL High 0.0-0.8 Eos # 0.25 K/uL N 0.0-0.5 Baso # 0.01 K/uL N 0.0-0.1 Drugs Of Abuse-Urine 06/04/2018 [facility] Amphetamines ( Urine) Negative Screen 7 (315)- - Barbiturates (Urine) Negative Benzodiazepines (Urine) Negative Cannabinoids (Urine) Negative Cocaine Metabolite (Urine) Negative Methadone (Urine) Negative Opiates (Urine) Negative Urine Cutoffs * 35 Venous Blood Gas 06/04/2018 [facility] Venous Blood Gas 7.29 N 7.25-7.55 (315)- - pH Venous Blood Gas Pco2 58 mmHg High 45-50 Venous Blood Gas Po2 56 mmHg N 40-60 Venous Blood Gas Hco3 27.0 mEq/L Venous Blood Gas Base XS -0.9 mEq/L Venous Blood Gas OS Sat. 84.6 % High 60-80 Ua RFX Micro & 06/04/2018 [facility] Urine Color YELLOW Yellow Culture II (315)- - Urine Clarity CLEAR Clear Urine Glucose - Dipstick NEGATIVE mg/dL Negative Urine Bilirubin - Dipstick NEGATIVE Negative Urine Ketone NEGATIVE mg/dL Negative Urine Specific Cranks 1.010 N 1.010-1.030 Urine Blood NEGATIVE Negative Urine PH 7.5 N 6.5-7.5 Urine Protein - Dipstick NEGATIVE mg/dL Negative Urine Urobilinogen - Dipstick 0.2 E.U./dL N 0.2-1.0 Urine Nitrite - Dipstick NEGATIVE Negative Urine Leuk Esterase NEGATIVE Negative Source: URINE, CLEAN CAT <SEE NOTE> 36 Aot Request 06/04/2018 [facility] Aot Request Test(s) added 37 (315)- - Tests to be added: carbamazepine Tricyclic 06/04/2018 [facility] Amitriptyline,Serum None Not 38 Antidepressants (315)- - Detected Estab. ng/mL Nortriptyline,Serum None Detected ng/mL 50-150 Total (Ami+Nor) (SEE NOTE) ng/mL 120-250 39 Imipramine,Serum None Detected ng/mL Not Estab. Desipramine,Serum None Detected ng/mL Not Estab. Total (Imi+Adonis) (SEE NOTE) ng/mL 150-250 40 Doxepin,Serum None Detected ng/mL Not Estab. Nordoxepin,Serum None Detected ng/mL Not Estab. Total(Dox+Nordox) (SEE NOTE) ng/mL 150-250 41 Disclaimer: (SEE NOTE) 42 Lactic Acid 06/04/2018 [facility] Lactic Acid 1.3 mmol/L N 0.4-1.9 (315)- - Lab Reflex >2.0 for Sepsis? Y CBC with Auto Diff-fcmg 12/11/2017 [facility] WBC 7.7 K/uL 4.1-11.0 43 RBC 4.62 M/uL 4.60-6.10 Hemoglobin 14.6 gm/dL [...] Basophils 0.0 K/uL 0.0-0.3 Comprehensive Met Panel-FCMG 12/11/2017 [facility] Sodium 143 mmol/L 135- 146 44 Potassium 4.5 mmol/L 3.5-5.2 Chloride# 106 mmol/L 97-110 45 Carbon Dioxide 31 mmol/L 24-34 Glucose 79 mg/dL 70-105 BUN 20 mg/dL 6-26 Creatinine 1.2 mg/dL 0.5-1.4 Calcium 9.8 mg/dL 8.5-10.2 Total Protein 7.0 g/dL 6.0-8.0 Albumin 4.1 g/dL 3.6-4.9 Globulin 2.9 g/dL 2.0-3.5 A/G Ratio 1.4 Ratio 1.0-2.2 Total Bilirubin 0.3 mg/dL 0.1-1.3 Alkaline Phosphatase 87 U/L 24-140 Alt 52 U/L High 3-42 Ast 32 U/L 8-42 Dahlia Egfr >60 >60 46 Non Dahlia Egfr >60 >60 47 Anion Gap 6 mmol/L 5-15 48 Laboratory test finding 12/11/2017 [facility] TSH 2.51 uIU/mL 0.35-4.94 Hepatitis C Virus Antibody NON REACTIVE S/CORatio(Nino Non Reactive 49 PSA 0.370 ng/mL 0.000-4.000 50 Laboratory test 12/11/2017 [facility] Mershon 0.72 mmol/L (0.60-1.50) 51 finding Laboratory test 05/22/2017 [facility] Calcium,Ioni 5.9 mg/dL High 4.5-5.6 52, 53 finding Lab Dept zed [phone] Basic Metabolic 05/22/2017 [facility] Glucose 113 mg/ dL High 74-106 Panel Lab Dept [phone] BUN 18 mg/dL N 7-18 Creatinine 1.4 mg/dL High 0.6-1.3 Glom Filtration Rate, Estimate 55 mL/min >60 If >60 mL/min >60 54 BUN/Creat 12.8 ratio Sodium 145 mmol/L N 136-145 Potassium 4.2 mmol/L N 3.5-5.1 Chloride 109 mmol/L High 98-107 Carbon Dioxide 31 mmol/L N 21-32 Anion Gap 5 mEq/L Low 8-16 Calcium 10.1 mg/dL N 8.5-10.1 Laboratory test 05/22/2017 [facility] Insulin 15.9 uIU/mL 2.6-24.9 55 finding Lab Dept [phone] CBC With Auto Diff 05/21/2017 [facility] WBC 8.8 K/uL 4.1-11.0 56 RBC 4.83 M/uL 4.60-6.10 Hemoglobin 15.6 gm/dL [...] 05/21/2017 [facility] Sodium 144 mmol/L 135- 146 57 Potassium 3.9 mmol/L 3.5-5.2 Chloride# 107 mmol/L 97-110 58 Carbon Dioxide 31 mmol/L 24-34 Glucose 28 mg/dL Low 70-105 59 Creatinine 1.4 mg/dL 0.5-1.4 Calcium 10.4 mg/dL High 8.5-10.2 Total Protein 7.5 g/dL 6.0-8.0 Albumin 4.3 g/dL 3.6-4.9 Globulin 3.2 g/dL 2.0-3.5 A/G Ratio 1.3 Ratio 1.0-2.2 Total Bilirubin 0.3 mg/dL 0.1-1.3 Alkaline Phosphatase 119 U/L 24-140 Alt 33 U/L 3-42 Ast 20 U/L 8-42 Dahlia Egfr >60 >60 60 Non Dahlia Egfr 52 Low >60 61 Anion Gap 6 mmol/L Low 7-16 62 BUN 20 mg/dL 6-26 Laboratory test 06/24/2016 [facility] Urine Culture Microbiology res 63 finding <SEE NOTE> Laboratory test 03/26/2016 [facility] Fit(Fecal Negative Negative finding Occult Blood) Laboratory test 08/26/2015 [facility] Esophageal See Note 64 finding (315)- - Biopsy Laboratory test 06/06/2015 [facility] TSH 3.71 uIU/mL 0.35-4.94 finding Free T4 0.89 ng/dL 0.70-1.48 T3,Free 1.77 pg/mL 1.71-3.71 Esr 6 mm/hr 0-15 Thyroid Auto AB -RL 06/06/2015 [facility] Thyroglobulin AB @ <20 IU/mL (<40 ) Thyr Peroxidase AB @ <10 IU/mL (<35) 65 Laboratory test 03/16/2015 [facility] PSA 0.350 ng/mL 0.000-4.000 66 finding Basic Metabolic 12/30/2014 [facility] Glucose 104 mg/dL 74-106 Panel (315)- - BUN 13 mg/dL 7-18 Creatinine 1.3 mg/dL 0.6-1.3 Glom Filtration Rate, Estimate 60 mL/min >60 If >60 mL/min >60 67 BUN/Creat 10.0 ratio Sodium 141 mmol/L 136-145 Potassium 4.2 mmol/L 3.5-5.1 Chloride 109 mmol/L High 98-107 Carbon Dioxide 27 mmol/L 21-32 Anion Gap 5 mEq/L Low 8-16 Calcium 9.9 mg/dL 8.5-10.1 CBC 12/30/2014 [facility] White Blood Count 7.3 K/uL [...] 10.2 fL 6.6-10.6 Drugs Of Abuse-Urine 12/29/2014 [facility] Amphetamines ( Urine) Negative Screen 7 (315)- - Barbiturates (Urine) Negative Benzodiazepines (Urine) Negative Cannabinoids (Urine) Negative Cocaine Metabolite (Urine) Negative Methadone (Urine) Negative Opiates (Urine) Negative Urine Cutoffs * 68 Urine Screen 12/29/2014 [facility] Urine Color YELLOW Yellow (315)- - Urine Clarity CLEAR Clear Urine Glucose - Dipstick NEGATIVE mg/dL Negative Urine Bilirubin - Dipstick NEGATIVE Negative Urine Ketone NEGATIVE mg/dL Negative Urine Specific Cranks <=1.005 Low 1.010-1.030 Urine Blood TRACE Negative Urine PH 6.0 Low 6.5-7.5 Urine Protein - Dipstick NEGATIVE mg/dL Negative Urine Urobilinogen - Dipstick 0.2 E.U./dL 0.2-1.0 Urine Nitrite - Dipstick NEGATIVE Negative Urine Leuk Esterase NEGATIVE Negative Comprehensive Metabolic 12/29/[address] [facility] Glucose 99 mg/dL 74-106 Panel (315)- - BUN 12 mg/dL 7-18 Creatinine 1.2 mg/dL 0.6-1.3 Glom Filtration Rate, Estimate >60 mL/min >60 If >60 mL/min >60 69 BUN/Creat 10.0 ratio Sodium 140 mmol/L 136-145 [...] 105 U/L 45-117 Laboratory test finding 12/29/2014 [facility] CK 72 U/L 39-308 (315)- - Troponin-I < 0.015 ng/mL 70 CBC W/Automated Diff 12/29/2014 [facility] White Blood 7.5 K/uL 3.4-10.5 (315)- - [...] % 33.0-73.0 Lymph % 18.2 % 17.0-56.0 Estill % 12.8 % High 0.0-10.0 Eo% 3.9 % 0.0-5.0 Bas% 0.1 % 0.1-1.0 Neut# 4.87 K/uL 1.8-7.0 Lymph # 1.36 K/uL Low 1.8-7.0 Estill # 0.96 K/uL High 0.0-0.8 Eos # 0.29 K/uL 0.0-0.5 Baso # 0.01 K/uL Low 0.1-0.2 Liver Function 12/29/2014 [facility] Total Protein 8.0 g/ dL 6.4-8.2 Tests (315)- - Albumin 3.7 g/dL 3.4-5.0 Globulin 4.3 g/dL 1.9-4.3 Alb/Glob 0.9 ratio Bilirubin,Total 0.3 mg/dL 0.2-1.0 Bilirubin,Direct < 0.1 mg/dL 0.0-0.2 Bilirubin,Indirect 0.2 mg/dL 0.0-0.9 Sgot/Ast 19 U/L 15-37 SGPT/Alt 48 U/L 12-78 Alkaline Phosphatase 123 U/L High 45-117 Basic Metabolic Panel 12/29/2014 [facility] Glucose 113 mg/dL High 74-106 (315)- - BUN 12 mg/dL 7-18 Creatinine 1.3 mg/dL 0.6-1.3 Glom Filtration Rate, Estimate 60 mL/min >60 If >60 mL/min >60 71 BUN/Creat 9.2 ratio Sodium 140 mmol/L 136-145 Potassium 4.0 mmol/L 3.5-5.1 Chloride 106 mmol/L 98-107 Carbon Dioxide 26 mmol/L 21-32 Anion Gap 8 mEq/L 8-16 Calcium 10.1 mg/dL 8.5-10.1 Laboratory test finding 12/29/2014 [facility] Lipase 59 U /L Low 73-393 (315)- - CK 88 U/L 39-308 Troponin-I < 0.015 ng/mL 72 CBC W/Automated Diff 12/29/2014 [facility] White Blood 9.2 K/uL 3.4-10.5 [...] 33.0-73.0 Lymph % 15.6 % Low 17.0-56.0 Estill % 8.6 % 0.0-10.0 Eo% 2.3 % 0.0-5.0 Bas% 0.0 % Low 0.1-1.0 Neut# 6.72 K/uL 1.8-7.0 Lymph # 1.43 K/uL Low 1.8-7.0 Estill # 0.79 K/uL 0.0-0.8 Eos # 0.21 K/uL 0.0-0.5 Baso # 0.00 K/uL Low 0.1-0.2 Laboratory test 12/29/2014 [facility] M[place]hon 1.17 0.60-1.20 finding (315)- - mmol/L Laboratory test 12/29/2014 N2N/CCD Import Alanine 48 12-78 finding Aminotransferase (Alt/SGPT) Aspartate Amino Transf (Ast/Sgot) 19 15-37 BUN/Creatinine Ratio 9.2 Basophils # (Auto) 0.00 Low 0.1-0.2 Basophils (%) (Auto) 0.0 Low 0.1-1.0 Carbon Dioxide Level 26 21-32 Eosinophils # (Auto) 0.21 0.0-0.5 Eosinophils (%) (Auto) 2.3 0.0-5.0 Estimated GFR (Non- 60 >60 Indirect Bilirubin 0.2 0.0-0.9 Mershon Level 1.17 0.60-1.20 Lymphocytes # (Auto) 1.43 [...] #2-RL NEGATIVE Stool Occult Blood #3-RL POSITIVE 73 Laboratory test 03/27/2014 N2N/CCD Import PSA 0.4 ng/mL 0.0-4.0 finding Laboratory test 02/21/2013 N2N/CCD Import Esr Sedrate 37.0 sec High 0.0- 20.0 finding FT4 0.91 ng/dL 0.75-1.54 PSA 0.4 ng/mL 0.0-4.0 TSH 2.78 uIU/ml 0.50-6.00 Thyroid Antithyroglobulin AB < 1.0 Iu/ml 0.0-0.9 74 Thyroid Peroxidase Antibodies 15 IU/mL 0-34 75 Thyrotropin Receptor Antibody 0.62 IU/L 0.00-1.75 Triiodothyronine,Free [...] 14.7 gm/dL 12.8-17.0 If >60 mL/min >60 76 Mershon 0.92 mmol/L 0.60-1.20 Mean Cell Volume 92.4 [...] g/dL 2.7-4.3 Glucose 61 mg/dL Low 75-110 77 Hematocrit 43.0 % 37.0-51.0 Hemoglobin 14.6 GM/dl [...] U/L 21-72 Antinuclear Abs Ifa Negative . 78 Ast 24 U/L 17-59 BUN 11 mg/dL 9-21 BUN/CR Ratio 11.2 Ratio Low 12-20 Basophil 0.2 % 0-2 Calcium 9.7 mg/dL 8.7-10.5 Carbon Dioxide 28 mmol/L 22-30 Chloride 99 mmol/L 98-107 Creatinine, Serum 1.0 mg/dL 0.8-1.5 Eosinophil 5.3 % High 0-4 Globulin 3.0 g/dL 2.7-4.3 Glucose 208 mg/dL High 75-110 79 Hematocrit 40.7 % 37.0-51.0 Hemoglobin 13.5 GM/dl 12.0-16.0 Lymphocytes 16.0 % Low 20-44 MCH 31.1 pg 26.0-32.0 MCHC 33.2 g/dL 31.0-36.0 MCV 94 FL 80-97 Monocytes 7.5 % 2-10.0 Neutrophils 70.9 % High 50-70 Platelet Count 208 K/ul 140-440 Potassium 4.3 mmol/L 3.6-5.0 RBC 4.35 M/ul 4.2-6.3 RDW 11.5 % 11.5-14.5 Rheumatoid Factor Screen Negative Negative 80 Sedimentation Rate 4 mm/hr 0-20 81 Sodium 138 mmol/L 137-145 Total Bilirubin 0.3 [...] - Dipstick Negative mg/dL Negative Urine Specific Cranks 1.010 1.010-1.030 Urine Urobilinogen - Dipstick 0.2 E.U./dL 0.2-1.0 Laboratory test 05/05/2008 N2N/CCD Import Aerobic Culture Organism 1 <See 82 finding Note> Gram Stain Gram Stain <See Note> 83 Laboratory test finding 12/10/2007 N2N/CCD Import Anion [...] 31.7-36.0 Mean Platelet Volume 9.6 fL 6.6-10.6 Estill # 1.1 K/uL High 0.0-0.6 Estill % 9.2 % 0.0-10.0 Neut# 9.2 K/uL High 1.8-7.0 Neut% 77.9 % High 33.0-73.0 Platelet Count 226 K/uL 150-400 Red Blood Count 4.53 M/uL 4.20-5.80 Red Cell Distri Width %CV 12.5 % 11.6-15.8 Red Cell Distri Width SD 40 fl 36-51 White Blood Count 11.8 K/uL High 3.4-10.5 1 LOW 02 SAT 2 Note: Persistent reduction for 3 months or more in an eGFR <60 mL/min/1.73 m2 defines CKD. Patients with eGFR values >/=60 mL/min/1.73 m2 may also have CKD if evidence of persistent proteinuria is present. The original MDRD equation for estimated GFR is not valid for patients less than 18 years of age. Additional information may be found at [email or web address]. 3 0.0 - 0.045 ng/mL: Normal 0.046 - 0.5 ng/mL: Suggestive 0.6 - 1.5 ng/mL: Consistent 4 Z13.220 F84.0 G47.8 Z79.899 5 Reference Guidelines*: Desirable: ........... < 200 mg/dL Borderline High: ..... 200-239 mg/dL High: ................ >=240 mg/dL * The National Cholesterol Education Program (NCEP) 6 Reference Guidelines*: Normal: ............. < 150 mg/dL Borderline High: .... 150-199 mg/dL High: ............... 200-499 mg/dL Very High: .......... > 500 mg/dL * Source: National Cholesterol Education Program (NCEP) 7 Reference Guidelines*: Low HDL: ..... < 40 mg/dL Normal: ..... 40-60 mg/dL Desirable: ... > 60 mg/dL *The National Cholesterol Education Program(NCEP) 8 Reference Guidelines*: Optimal:........... <100 mg/dL Near Optimal....... 100-129 mg/dL Borderline High.... 130-159 mg/dL High............... 160-189 mg/dL Very High.......... >=190 mg/dL * Source: National Cholesterol Education Program (NCEP) 9 Note: Persistent reduction for 3 months or more in an eGFR <60 mL/min/1.73 m2 defines CKD. Patients with eGFR values >/=60 mL/min/1.73 m2 may also have CKD if evidence of persistent proteinuria is present. The original MDRD equation for estimated GFR is not valid for patients less than 18 years of age. Additional information may be found at www.[email or web address]. 10 FAX TO ALIZA REBECCA [phone] 11 FAX TO ALIZA REBECCA [phone] 12 FAX TO ALIZA REBECCA [phone] 13 FAX TO ALIZA REBECCA [phone] 14 FAX TO ALIZA REBECCA [phone] 15 today letter 16 NORMAL KIDNEY FUNCTION OR MILD DISEASE - GFR >OR=60 CHRONIC KIDNEY DISEASE - GFR 15 - 59 RENAL FAILURE - GFR <15 Est. GFR calculation based on the MDRD study equation, which assumes a steady state for creatinine. Est. GFR should not be used for medication dosing. 17 Unless otherwise specified, testing performed by [facility] [address] [place] [id number] 18 yelling out 19 URINE, CLEAN CATCH 20 SERUM SPECIMEN 21 0.0 - 0.045 ng/mL: Normal 0.046 - 0.5 ng/mL: Suggestive 0.6 - 1.5 ng/mL: Consistent 22 Note: Persistent reduction for 3 months or more in an eGFR <60 mL/min/1.73 m2 defines CKD. Patients with eGFR values >/=60 mL/min/1.73 m2 may also have CKD if evidence of persistent proteinuria is present. The original MDRD equation for estimated GFR is not valid for patients less than 18 years of age. Additional information may be found at [email or web address]. 23 Please Note: A POSITIVE result for influenza [...] influenza A and B molecular assay. Method: [employer] Chromatographic immunoassay 24 Z02.9 25 Note: Persistent reduction for 3 months or more in an eGFR <60 mL/min/1.73 m2 defines CKD. Patients with eGFR values >/=60 mL/min/1.73 m2 may also have CKD if evidence of persistent proteinuria is present. The original MDRD equation for estimated GFR is not valid for patients less than 18 years of age. Additional information may be found at [email or web address]. 26 ACUTE ENCEPHALOPATHY 27 Note: Persistent reduction for 3 months or more in an eGFR <60 mL/min/1.73 m2 defines CKD. Patients with eGFR values >/=60 mL/min/1.73 m2 may also have CKD if evidence of persistent proteinuria is present. The original MDRD equation for estimated GFR is not valid for patients less than 18 years of age. Additional information may be found at [email or web address]. 28 AMS SINCE THIS MORNING 29 0.0 - 0.045 ng/mL: Normal 0.046 - 0.5 ng/mL: Suggestive 0.6 - 1.5 ng/mL: Consistent 30 Note: Persistent reduction for 3 months or more in an eGFR <60 mL/min/1.73 m2 defines CKD. Patients with eGFR values >/=60 mL/min/1.73 m2 may also have CKD if evidence of persistent proteinuria is present. The original MDRD equation for estimated GFR is not valid for patients less than 18 years of age. Additional information may be found at [email or web address]. 31 THERAPEUTIC RANGE: 15-30 mg/dL POTENTIAL TOXICITY VARIES WITH TIME FROM INGESTION. PLEASE CONSULT APPROPRIATE NOMOGRAM. 32 Acetaminophen concentration >150 ug/mL at four hours after ingestion and 50.0 ug/mL at twelve hours after ingestion are often associated with toxic reactions. 33 Is patient on anticoagulants? Coumadin 34 THERAPEUTIC INR RANGE: 2.0 - 3.0 DVT, Pulmonary embolus, prophylaxis against venous thrombosis or systemic embolization in high risk patients. 2.5 - 3.5 Mechanical heart valves 35 URINE SPECIMENS ARE SCREENED AT THE LISTED CUTOFFS DRUG CLASS INITIAL TEST LEVEL Amphetamines 1000 ng/mL Barbiturates 200 ng/mL Benzodiazepines 200 ng/mL Cannabinoids 50 ng/mL Cocaine Metabolite 300 ng/mL Methadone 300 ng/mL Opiates 300 ng/mL Any PRESUMPTIVE POSITIVE findings are UNCONFIRMED. Confirmatory testing is suggested if findings are unexpected. Please contact laboratory if confirmatory testing is desired. SPECIMENS ARE HELD FOR 72 HOURS. 36 URINE, CLEAN CATCH 37 Tests: carbamazepine Instructions: 38 ACUTE ENCEPHALOPATHY 39 Total not calculated due to one or more constituents not detected. Therapeutic range is still applicable. Detection Limit=20 40 Total not calculated due to one or more constituents not detected. Therapeutic range is still applicable. Detection Limit=20 41 Total not calculated due to one or more constituents not detected. Therapeutic range is still applicable. Detection Limit=20 42 This test was developed and its performance characteristics determined by [facility]. It has not been cleared or approved by the Food and Drug Administration. Performed at: [address] [id number] Master Chef: Sarah Blakely MD, Phone: [phone] 43 today letter 44 Updated reference range on new analyzer 45 Updated reference range on new analyzer 46 Concerning GFR Guidelines for Americans: Normal function or mild renal disease, if clinically at risk: >/=60 mL/min Moderately decreased: 30-59 Severely decreased: 15-29 Renal failure: <15 47 Concerning GFR Guidelines: Normal function or mild [...] drugs that are excreted by the kidneys. 48 Updated Reference Range 49 S/CO Ratio >/=1.0 is REACTIVE. S/CO <5.0 is Low Reactive. S/CO >/= 5.0 is High Reactive. Effective Jan 09, 2017 all anti-HCV reactive samples are sent for quantitative PCR confirmation. 50 Beginning 07/13/06 PSA values assayed at [facility] uses chemiluminescence methodology manufactured by [employer] for use on the DXI analyzer. Values obtained with different assay methods or kits can not be used interchangeably. Serum PSA measurement is not an absolute test for malignancy. The PSA value should be used in conjunction with information available from clinical evaluation and other diagnostic procedures. 51 Unless otherwise specified, testing performed by [facility] [address] [place] [id number] 52 R55, E16.1, Z79.899, E83.52 53 Performed at: RN - [facility] [address] [id number] Master Chef: Mandy Hurtado MD, Phone: [phone] 54 Note: Persistent reduction for 3 months or more in an eGFR <60 mL/min/1.73 m2 defines CKD. Patients with eGFR values >/=60 mL/min/1.73 m2 may also have CKD if evidence of persistent proteinuria is present. The original MDRD equation for estimated GFR is not valid for patients less than 18 years of age. Additional information may be found at [email or web address]. 55 Performed at: RN - [facility] [address] [id number] Master Chef: Mandy Hurtado MD, Phone: [phone] 56 schedule, do with hydration. 57 Updated reference range on new analyzer 58 Updated reference range on new analyzer 59 Critical Result S_GLU:28 Verified by repeat analysis and Called to: GEORGIA Alas at: 05/21/2017 14:17:14 by:NILESH JOYA 60 Concerning GFR Guidelines for Americans: Normal function or mild renal disease, if clinically at risk: >/=60 mL/min Moderately decreased: 30-59 Severely decreased: 15-29 Renal failure: <15 61 Concerning GFR Guidelines: Normal function or mild [...] drugs that are excreted by the kidneys. 62 Updated reference range on new analyzer 63 Microbiology results SOURCE URINE FINAL RESULT No growth 64 OPERATION/PROCEDURE Removal of foreign body, esophagus DIAGNOSIS: [...] Signed Electronically signed Kelley OLIVERA MD [id number] 65 Unless otherwise specified, testing performed by [facility] [address] [place] [id number] 66 Beginning 07/13/06 PSA values assayed at [facility] uses an EIA methodology manufactured by [employer] for use on the DXI analyzer. Values obtained with different assay methods or kits can not be used interchangeably. Serum PSA measurement is not an absolute test for malignancy. The PSA value should be used in conjunction with information available from clinical evaluation and other diagnostic procedures. 67 Note: Persistent reduction for 3 months or more in an eGFR <60 mL/min/1.73 m2 defines CKD. Patients with eGFR values >/=60 mL/min/1.73 m2 may also have CKD if evidence of persistent proteinuria is present. The original MDRD equation for estimated GFR is not valid for patients less than 18 years of age. Additional information may be found at www.[email or web address]. 68 URINE SPECIMENS ARE SCREENED AT THE LISTED CUTOFFS DRUG CLASS INITIAL TEST LEVEL Amphetamines 1000 ng/mL Barbiturates 200 ng/mL Benzodiazepines 200 ng/mL Cannabinoids 50 ng/mL Cocaine Metabolite 300 ng/mL Methadone 300 ng/mL Opiates 300 ng/mL Any POSITIVE findings are UNCONFIRMED. Confirmatory testing is suggested if findings are unexpected. Please contact laboratory if confirmatory testing is desired. SPECIMENS ARE HELD FOR 72 HOURS. 69 Note: Persistent reduction for 3 months or more in an eGFR <60 mL/min/1.73 m2 defines CKD. Patients with eGFR values >/=60 mL/min/1.73 m2 may also have CKD if evidence of persistent proteinuria is present. The original MDRD equation for estimated GFR is not valid for patients less than 18 years of age. Additional information may be found at www.[email or web address]. 70 0.0 - 0.045 ng/mL: Normal 0.046 - 0.5 ng/mL: Suggestive 0.6 - 1.5 ng/mL: Consistent 71 Note: Persistent reduction for 3 months or more in an eGFR <60 mL/min/1.73 m2 defines CKD. Patients with eGFR values >/=60 mL/min/1.73 m2 may also have CKD if evidence of persistent proteinuria is present. The original MDRD equation for estimated GFR is not valid for patients less than 18 years of age. Additional information may be found at www.[email or web address]. 72 0.0 - 0.045 ng/mL: Normal 0.046 - 0.5 ng/mL: Suggestive 0.6 - 1.5 ng/mL: Consistent 73 I VERIFIED WITH ANOTHER STAFF MEMBER THAT THIS WAS POSITIVE FOR OCCULT BLOOD IN STOOL - MF,TREE SPECIALIST 74 Low positive Thyroglobulin antibodies are seen in a portion of the asymptomatic populations. Antithyroglobulin antibodies measured by [employer] Methodology 75 Performed at: - [facility] [address] [id number] Master Chef: Mandy Hurtado MD, Phone: [phone] Performed at: - [facility] [address] [id number] Master Chef: Trevor Brandt MD, Phone: [phone] 76 Note: Persistent reduction for 3 months or more in an eGFR <60 mL/min/1.73 m2 defines CKD. Patients with eGFR values >/=60 mL/min/1.73 m2 may also have CKD if evidence of persistent proteinuria is present. The original MDRD equation for estimated GFR is not valid for patients less than 18 years of age. Additional information may be found at www.[email or web address]. 77 The difference between the current result of 61 and the last result of 208 (10/04/10) exceeds the absolute delta value of 100 defined for this test! The difference between the most recent result of 208 and the current result of 61 exceeds the absolute delta value of 100 as defined for this test. 78 Negative <1:80 Borderline 1:80 Positive >1:80 Performed at: - [facility] [address] [id number] Master Chef: Matthew Banks MD, Phone: [phone] 79 The difference between the current result of 208 and the last result of 60 (02/14/10) exceeds the absolute delta value of 100 defined for this test! The difference between the most recent result of 60 and the current result of 208 exceeds the absolute delta value of 100 as defined for this test. 80 QUERY: @EMR Pat ID: QUERY: @EMR Req #: 81 QUERY: @EMR Pat ID: QUERY: @EMR Req #: 82 Organism 1 ! NO PATHOGENS ISOLATED 83 GRAM STAIN ! NO ORGANISMS SEEN Procedures Date Code Description Status 10/08/2018 88361 Measure Blood Oxygen Level Single Determination Completed 09/27/2018 62423 Electrocardiogram Complete Completed 08/16/2018 51312 Measure Blood Oxygen Level Single Determination Completed 06/08/2018 13864 Measure Blood Oxygen Level Single Determination Completed 10/27/2017 17475 Measure Blood Oxygen Level Single Determination Completed 05/26/2017 90769 Bone Density Study (Dexa) Axial Skeleton Completed (Hips,Pelvis,Spine) 05/26/2017 312003688 Bone Mineral Density Test Completed 08/27/2016 49087 Measure Blood Oxygen Level Single Determination Completed 02/06/2016 52467 Electrocardiogram Complete Completed 11/14/2009 13146 Remove Impacted Cerumen Requiring Instrumentation Completed 07/02/2007 73980 Remove Impacted Cerumen Requiring Instrumentation Completed 03/09/2003 62476 Measure Blood Oxygen Level Single Determination Completed Encounters Type Date Location Provider Dx Diagnosis Office Visit 09/27/2018 10:15a [facility] Latonya Luna MD L20.82 Flexural eczema L20.9 Atopic dermatitis, unspecified F60.9 Personality disorder, unspecified K59.00 Constipation, unspecified E87.0 Hyperosmolality and hypernatremia G47.8 Other sleep disorders F84.0 Autistic disorder Z13.220 Encounter for screening for lipoid disorders Z68.27 Body mass index (BMI) 27.0-27.9, adult Office Visit 05/10/2018 9:30a [facility] Cinthia Kirby, S60.415A Abrasion of LEFT [employer] ring finger, initial encounter Office Visit 03/29/2018 11:00a [facility] Latonya Luna MD Z00.01 Encounter for [...] for malignant neoplasm of colon Z79.899 Other penitentiary (current) drug therapy E66.3 Overweight H91.93 Unspecified hearing loss, bilateral Z68.27 Body mass index (BMI) 27.0-27.9, adult Office Visit 12/11/2017 1:15p [facility] Latonya Luna MD L20.82 Flexural eczema L84 Corns and callosities K59.00 Constipation, unspecified F60.9 Personality disorder, unspecified Z79.899 Other penitentiary (current) drug therapy Z11.59 Encounter for screening for other viral diseases Z12.5 Encounter for screening for malignant neoplasm of prostate Z68.28 Body mass index (BMI) 28.0-28.9, adult Office Visit 10/27/2017 11:30a [facility] Latonya Luna MD J69.8 Pneumonitis due to inhalation of other solids and liquids Z68.26 Body mass index (BMI) 26.0-26.9, adult Office Visit 09/11/2017 10:00a [facility] Latonya Luna MD L20.82 Flexural eczema L84 Corns and callosities Z68.27 Body mass index (BMI) 27.0-27.9, adult Office Visit 07/08/2017 4:00p [facility] Latonya Luna MD L20.82 Flexural eczema L40.9 Psoriasis, unspecified Office Visit 06/24/2017 9:00a [facility] Latonya Luna MD L20.82 Flexural eczema L40.9 Psoriasis, unspecified R55 Syncope and collapse R53.1 Weakness E16.1 Other hypoglycemia L03.116 Cellulitis of LEFT lower limb Office Visit 06/10/2017 8:45a [facility] Latonya Luna MD L20.82 Flexural eczema R55 Syncope and collapse R53.1 Weakness E16.1 Other hypoglycemia Office Visit 05/20/2017 11:30a [facility] Latonya Luna MD S80.02xA Contusion of LEFT knee, initial encounter R55 Syncope and collapse I44.4 LEFT anterior fascicular block I51.7 Cardiomegaly Z87.81 Personal history of (healed) traumatic fracture R21 Rash and other nonspecific skin eruption Z11.59 Encounter for screening for other viral diseases Office Visit 05/01/2017 9:30a [facility] Jus Chairez, R21 Rash and other DO nonspecific skin eruption Office Visit 03/27/2017 10:30a [facility] Jus Chairez, Z01.818 Encounter for other DO preprocedural examination K02.9 Dental caries, unspecified F79 Unspecified intellectual disabilities F60.9 Personality disorder, unspecified K59.00 Constipation, unspecified L20.9 Atopic dermatitis, unspecified H91.93 Unspecified hearing loss, bilateral Z00.00 Encntr for general adult medical exam w/o abnormal findings Z23 Encounter for immunization Z68.27 Body mass index (BMI) 27.0-27.9, adult Office Visit 02/10/2017 1:45p [facility] Jus Chairez DO S00.83xA Contusion of other part of head, initial encounter S92.302B Fx unsp metatarsal bone(s), LEFT foot, init for opn fx Office Visit 12/19/2016 11:00a [facility] Jus Chairez DO L03.811 Cellulitis of head [any part, except face] J01.90 Acute sinusitis, unspecified H62.41 Otitis externa in oth diseases classd elswhr, RIGHT ear Office Visit 12/05/2016 9:00a [facility] Claudia Timmons PA L03.116 Cellulitis of LEFT lower limb Office Visit 09/25/2016 1:45p [facility] Jus Chairez DO L03.031 Cellulitis of RIGHT toe S92.411A Disp fx of proximal phalanx of RIGHT great toe, init Office Visit 08/27/2016 11:00a [facility] Jus Chairez J01.90 Acute sinusitis, DO unspecified Office Visit 07/11/2016 8:45a [facility] Jus Chairez, S92.414A Nondisp fx of proximal DO phalanx of RIGHT great toe, init Office Visit 07/03/2016 8:45a [facility] Jus Chairez, L92.0 Granuloma annulare DO Office Visit 03/18/2016 3:30p [facility] Jus Chairez, F79 Unspecified DO intellectual disabilities F60.9 Personality disorder, unspecified K59.00 Constipation, unspecified L20.9 Atopic dermatitis, unspecified H91.93 Unspecified hearing loss, bilateral Z12.11 Encounter for screening for malignant neoplasm of colon Z23 Encounter for immunization Office Visit 02/26/2016 2:30p [facility] Jus Chairez, J06.9 Acute upper DO respiratory infection, unspecified Office Visit 02/06/2016 9:30a [facility] Jus Chairez, R00.2 Palpitations DO Office Visit 11/12/2015 1:00p [facility] Mirta, S80.922A Unsp superficial Cinthia, [employer] injury of LEFT lower leg, init encntr Office Visit 08/27/2015 4:15p [facility] Jus Chairez, T17.208A Unsp foreign body in DO pharynx causing oth injury, init encntr Office Visit 07/24/2015 10:30a [facility] Jus Chairez, R21 Rash and other DO nonspecific skin eruption Office Visit 04/06/2015 9:00a [facility] Mirta, Z01.818 Encounter for other Cinthia, [employer] preprocedural examination K04.0 Pulpitis H57.9 Unspecified disorder of eye and adnexa F79 Unspecified intellectual disabilities F60.9 Personality disorder, unspecified F50.8 Other eating disorders K59.00 Constipation, unspecified L20.9 Atopic dermatitis, unspecified H91.93 Unspecified hearing loss, bilateral Office Visit 03/16/2015 9:00a [facility] Jus Chairez, DO K59.00 Constipation, unspecified F60.9 Personality disorder, unspecified F79 Unspecified intellectual disabilities F50.8 Other eating disorders L20.9 Atopic dermatitis, unspecified H91.93 Unspecified hearing loss, bilateral Z12.5 Encounter for screening for malignant neoplasm of prostate Office Visit 10/02/2014 3:00p [facility] Cinthia Kirby, 924.20 Contusion Foot [employer] Office Visit 06/26/2014 4:00p [facility] Cinthia Kirby, 465.9 URI Upper [employer] Respiratory Infections Acute Unspec Sites Office Visit 06/15/2014 2:45p [facility] Mihaela JusDO 465.9 URI Upper Respiratory Infections Acute Unspec Sites Plan of Treatment Future Appointment(s):11/09/2018 4:15 pm - Latonya Luna MD at [facility]2018 11:00 am - Latonya Luna MD at [facility]10/08/2018 - Latonya Luna MDL20.82 Flexural eczemaComments:pt with rash in the creases of the arms, knees and has rash on the buttocks and legs now well controlled Continue to do showers every 2-3 days, use soap only only face, and groin and axillae and feet and hands. If has area of concern for developing infection, was there to with soap. Otherwise just water rinse. Avoid super hot water. Blot skin dry don't rub. Immediate moisturizers to follow. continue fish oil capsules 1000mg twice daily Target fluids at 3 qrts total fluids per day. call ifrash flares uphe has been tested for allergies and none foundhe is now using only kerasal, mupirocin, triamcinolone and vanicream per med list. 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 heis unable to use ventolin inhaler. he seems better on exam oxygen level is 97% recommend staff observe closely ,ok to stop ventolin, and seek care if he seems more sob or coughs again or has wheezing. he needs an ov if sxs pwuhbmV98.1 HyperprolactinemiaComments:very high prolactin level at 72 Dr Chen is prescribing meds, olanzipine 15mg and Chlorpromazine which may be cause of high prolactin. advised staff I have tried to reach Dr Chen and he has not returned calls, we have sent letters. Need to know what Dr Chen's plan is for management of this. adjust meds? order mri? is this a pituitary tumor? Please have Dr Chen contact me with the plan. Note to him today.F84.0 Autistic mjsgfkyaB11.9 Personality disorder, unspecifiedComments:Olanzapine, Chlorpromazine may be causing high prolactin, what is plan Dr Chen?Z68.28 Body mass index (BMI) 28.0-28.9, adultComments:healthy diet, regular exercise, reduced calories to help towards weight loss recommended
[2018-10-30 18:21] VITALS: BP 135/96
--- NOTE | 2018-10-30 18:32 | UC ---
Complaint Male HPI - HPI Summary HPI Summary: Staff noticed urinary incontinence and frequency today. Is on antibiotics for pneumonia. Also bumped left eye getting into vehicle on the way here. - History of Current Complaint Stated Complaint: POSSIBLE UTI Hx Obtained From: Family/Anesthesia Tech Onset/Duration: Sudden Onset, Lasting Days - 1, Still Present Severity Initially: Mild Severity Currently: Mild Pain Intensity: 0 Location: None Aggravating Factor(s): Voiding Alleviating Factor(s): Nothing - Allergies/Home Medications Allergies/Adverse Reactions: Allergies Allergy/AdvReac Type Severity Reaction Status Date / Time No Known Allergies Allergy Verified 10/30/18 18:22 Home Medications: Home Medications Fluocinonide 0.05% CM (NF) [Lidex 0.05% CREAM (NF)] 1 applic TOPICAL BID [History Confirmed 10/30/18] Tolnaftate 1 gm MC DAILY 10/30/18 [History Confirmed 10/30/18] PMH/Surg Hx/FS Hx/Imm Hx Respiratory History: Pneumonia Other Neurological History: MR, autism, encephalitis - Surgical History Surgical History: Yes Surgery Procedure, Year, and Place: cataract. septoplasty - Family History Known Family History: Positive: Unknown, Other - PT WITH SEVERE MR, UNABLE TO PROVIDE FAMILY HISTORY. NONE PER STAFF - Social History Occupation: Disabled Lives: Long Term Alcohol Use: None Substance Use Type: None Smoking Status (MU): Never Smoked Tobacco Review of Systems All Other Systems Reviewed And Are Negative: Yes Skin: Positive: Other - open wound left eye Genitourinary: Positive: Frequency, Other - urinary incontinence Physical Exam Triage Information Reviewed: Yes Appearance: Well-Appearing, No Pain Distress, Well-Nourished Vital Signs: Initial Vital Signs Temp 97.1 F 10/30/18 18:15 Pulse 91 10/30/18 18:15 BP 135/96 10/30/18 18:15 Vital Signs Reviewed: Yes Eyes: Positive: Conjunctiva Inflamed Neck exam: Normal Respiratory Exam: Normal Cardiovascular Exam: Normal Abdomen Description: Positive: Nontender - ? suprapubic tenderness, Soft Bowel Sounds: Positive: Present Musculoskeletal Exam: Normal Neurological: Positive: Other: - non-verbal Psychological Exam: Normal Skin: Positive: Other - 4mm laceration/ abrasion left eyebrow Images Head: 1 - 4mm abrasion/ laceration Complaint Male Course/Dx - Differential Dx/Diagnosis Differential Diagnosis/HQI/PQRI: Epididymitis, Pyelonephritis, Urinary Tract Infection Provider Diagnosis: Urinary incontinence, Eyebrow laceration Discharge - Sign-Out/Discharge Documenting (check all that apply): Patient Departure All imaging exams completed and their final reports reviewed: No Studies - Discharge Plan Condition: Stable Disposition: HOME Patient Education Materials: Urinary Incontinence (ED), Abrasion (ED) Referrals: Latonya Luna MD [Primary Care Provider] - 2 Weeks (recheck urine and blood pressure) - Billing Disposition and Condition Condition: STABLE Disposition: Home
== END 2018-10-30 18:56 | disposition home or self-care (01) ==
LOC: UCCORT 18:02
DX: R32 Unspecified urinary incontinence (principal); S01.112A Laceration without foreign body of left eyelid and periocular area, initial encounter; W22.8XXA Striking against or struck by other objects, initial encounter; Y93.89 Activity, other specified; Y92.9 Unspecified place or not applicable; F79 Unspecified intellectual disabilities; F84.0 Autistic disorder
CPT/HCPCS: 81003; 87086; 99212; G0463

== ENCOUNTER 2018-11-11 16:01 | Emergency (ER) | payer MEDICARE, MEDICAID ==
--- OUTSIDE RECORDS SUMMARY | 2018-11-11 16:12 | XMS REPORT | Continuity of Care Document ---
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 Date Identification Numbers Payment Provider Subscriber Effective: 1989 Policy Number: [id number] Medicare Part B Idris Withjhon PayID: [id number] [address] [place] [address] Policy Number: [id number] Medicaid Idris Withjhon PayID: [id number] [address] [place] [address] Problems Active Problems Provider Date Constipation Jus [...] Medications SIG Qnty Indications Ordering Provider Date Vanicream apply to whole 90gm L20.82 Latonya [...] Latonya Luna, Acetonide once daily 0.1% Cream [place] Carbonate take 1 capsule by F60.9 Unknown [...] as needed Tolnaftate between toes daily Unknown [place] Tussin 2 tsp q 6 hours prn Unknown cough without fever Ibuprofen 200 2 po q 4 hours as Unknown 200mg Tablets needed for pain up to 5 days Milk Of Magnesia give 15 milliliters 355ml K59.00 Mihaela, on day 3 and 4 if no Jus, DO 1200mg/15ML Suspension bm. Mylanta 1 tablespoon by 1Bottle Unknown [phone]/5ML mouth every 4 hours Suspension minor stomach upset. Kaopectate 2 tablespoons PO 1Bottle R19.7 Unknown 262mg/15ML after each loose Suspension stool. Tinactin spray between toes 150gm B35.3 [place], 1% Aerosol daily MD Latonya Kerasal apply to calloused 1Tube L20.9 [place], 5-10% Ointment areas every other MD Latonya day after bath L20.82 Olanzapine 15mg Tablets 1 PO qd 30Tabs F60.9 Unknown History Medications Amoxicillin/Clavulanate Every 12 Hours 10tabs J69.0 Unknown 10/27/2018 - Potassium 11/01/2018 875-125mg Tablets Vanicream apply to whole 3units L20.82 [place], 10/18/2018 - Bar body twice MD Latonya 10/18/2018 daily, discon't 10/18/2018 Prednisone 2 po daily for 3 6tabs J44.0 Unknown 10/04/2018 - 20mg Tablets days 10/07/2018 Oseltamivir Phosphate 1 by mouth every 10caps Cheryl, 06/25/2018 - 75mg Capsules day MD Latonya 07/05/2018 Amoxicillin/Clavulanate 1 by mouth twice 20tabs J01.90 Cheryl 2018 - Potassium a day MD Latonya 06/18/2018 875-125mg Tablets Resource Thickenup Thickened use as directed 176ml F79 Cheryl, 2017 - Water 176oz/22cans per MD Latonya 04/16/2018 Liquid month consistency - honey thick R13.10 Loratadine 1 by mouth 90caps J30.9 Latonya Luna MD 02/10/2018 - 10mg every day 04/30/2018 Capsules L20.82 L20.9 Augmentin 1 by mouth twice a Unknown 10/27/2017 - 875-125mg day x 10 days 11/06/2017 Tablets Doxycycline Hyclate 1 by mouth twice a 20tabs L03.116 Cheryl, 2017 - day MD Latonya 07/04/2017 100mg [...] Amoxicillin/Clavulan 1 by mouth twice 20tabs L03.811 Mihaela, 12/19/2016 - ate Potassium a day DO Jus 03/27/2017 500-125mg Tablets Tamiflu 1 by mouth every 10caps Cheryl, 09/13/2016 - 75mg Capsules day MD Latonya 09/23/2016 Amoxicillin/Clavulan 1 by mouth twice 20tabs J01.90 Mihaela, 08/27/2016 - ate Potassium a day DO Jus 12/05/2016 500-125mg Tablets Hydrocerin apply to torso 454gm L20.9 Mihaela, 03/18/2016 - Cream and extremities 3 DO Jus 05/19/2017 times a day Benefiber give 2 500units K59.00 Cheryl, 03/10/2016 - Powder teaspoonfuls MD Latonya 11/03/2017 17.6Oz. mixed in 8 oz fluid & drink by mouth 3 times a day Q-Pap Take 2 Tablets 100tabs Mihaela, 12/13/2015 - 325mg Tablets (650MG) By Mouth DO Jus 05/19/2017 Every 4 Hours as Needed For Pain Or Fever >100 Or Headache *Send To [facility]* *Max Daily Dose: Docqlace Take 1 Capsule By 60caps Mihaela, 09/03/2015 - 100mg Mouth Two Times A DO Jus 11/12/2015 Capsules Day Aller-Chlor take 1 tablet by 90tabs J30.9 Luna, 09/03/2015 - 4mg mouth every 4 MD Latonya 02/10/2018 Tablets hours as needed for nasal drainage *maxdaily dose: 6 tablets Prednisone 4 by mouth every QS R21 Mihaela, 07/24/2015 - 10mg d x 3 days [...] te Potassium 12 hours for 10 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 DO Jus 06/26/2014 0.05% Solution Docusate Sodium 1 by mouth twice 60caps K59.00 Mihaela, 06/27/2010 - 100mg a day Jus, 08/25/2016 Capsules Guaifenesin DM 1 po bid 20tabs J06.9 Mihaela, 05/30/2010 - 600-30mg DO Jus 05/19/2017 Tablets ER 12HR Clotrimazole/Betameth apply to [...] bid F60.9 Unknown - 05/22/2017 100mg Tablets [place] Carbonate 1 PO bid F60.9 [place], Travis - 300mg 10/08/2018 Capsules Clonazepam 1 PO Q3 HRS prn - Unknown - 0.25mg Agitation 05/18/2014 Tablets Dispers Immunizations CPT Code Status Date Vaccine Reaction Lot # [id number] Given 05/03/2018 Tdap (Adacel) Ages 7 And Above Only 74457 Given 03/16/2018 Influenza Virus Vaccine,Quadrivalent,Split,Pr eserv Free, 0.5mL,Im Q2037 Given 04/10/2017 [place]in Immunization Given [place] [facility] [place] [address] Given 03/27/2017 Pneumococcal 23 Immunization Im inj completed, Pt [id number] Adult Or Immunosuppressed tolerated well Patient Q2037 Given 03/22/2016 Fluvirin Immunization Given At Pharmacy [facility] [address] Given 03/18/2016 Prevnar 13 Pneumococal Im inj completed, Pt [id number] Conjugate Vaccine tolerated well 61463 Given 02/21/2013 Afluria Or Fluvirin Flu Vac Intramuscular 97348 Given 01/22/2012 Afluria Or Fluvirin Flu Vac Intramuscular 47554 Given 02/17/2011 Afluria Or Fluvirin Flu Vac Intramuscular 43370 Given 02/14/2010 Afluria Or Fluvirin Flu Vac Intramuscular 16331 Given 02/12/2009 Tdap (Adacel) Ages 7 And Above Only 46226 Given 03/09/2008 Afluria Or Fluvirin Flu Vac Intramuscular 57038 Given 03/17/2007 Afluria Or Fluvirin Flu Vac Intramuscular 75236 Given 04/06/2006 Afluria Or Fluvirin Flu Vac Intramuscular 66151 Given 04/03/2005 Afluria Or Fluvirin Flu Vac Intramuscular 94600 Given 04/03/2005 Afluria Or Fluvirin Flu Vac Intramuscular 34666 Given 03/28/2003 Afluria Or Fluvirin Flu Vac Intramuscular 18367 Refused 03/29/2018 Shingrix (Shingles) Zoster Vaccine can get at pharmacy HZV, Recombinant, Subunit, Adj Vital Signs Date Vital Result Comment 11/09/2018 4:37pm Body Temperature 98.0 F Weight 173.00 lb Heart Rate 78 /min BP Systolic 120 mmHg BP Diastolic 68 mmHg Respiratory Rate 18 /min Height 67 inches 5'7" O2 % BldC Oximetry 88 % Ra--pulling away O2 Saturation Level with Exercise 82 % pulling away, not accurate BMI (Body Mass Index) 27.1 kg/m2 10/29/2018 10:28am Body Temperature 98.5 F Weight [...] /min 02/12/2009 10:27am Weight 177.00 lb 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 BP Systolic 132 mmHg BP Diastolic 82 [...] Result H/L Range Note Basic Metabolic 10/25/2018 [facility] Glucose 108 mg/dL High 74-106 [...] 8.3 mg/dL Low 8.5-10.1 CBS W/Automated 10/25/2018 [facility] White Blood 10.7 K/ uL [...] 33.0-73.0 Lymph % 13.3 % Low 20.0-42.0 [place] % 9.0 % N 0.0-10.0 Eo% 2.1 % N 0.0-6.6 Bas% 0.1 % N 0.0-1.1 Immature Grans 0.5 % N 0.0-5.0 NRBC % 0.0 /100WBC < 10/ 100 WBC Neut# 8.03 K/uL High 1.8-7.0 Lymph # 1.42 K/uL N 1.0-4.0 [place] # 0.96 K/uL High 0.0-0.8 Eos # 0.23 K/uL N 0.0-0.5 Baso # 0.01 K/uL N 0.0-0.1 Immature Grans Absolute 0.05 K/uL NRBC # 0.00 K/uL Influenza A/B 10/25/2018 [facility] Influenza A Negative (Negative) Antigen (315)- - Antigen Influenza B Antigen Negative (Negative) 3 Blood Culture 10/24/2018 [facility] Blood Culture NO GROWTH: FINAL 4 (315)- - Aerobic <SEE NOTE> Blood Culture Anaerobic NO GROWTH: FINAL <SEE NOTE> 5 Blood Culture 10/24/2018 [facility] Blood Culture NO GROWTH: FINAL 6 (315)- - Aerobic <SEE NOTE> Blood Culture Anaerobic NO GROWTH: FINAL <SEE NOTE> 7 Comprehensive Metabolic 10/24/2018 [facility] Glucose 123 mg/dL High 74-106 8 Panel (315)- - BUN 17 mg/dL N 7-18 Creatinine 1.4 mg/dL High 0.6-1.3 Glom Filtration Rate, Estimate 54 mL/min >60 If >60 mL/min >60 9 BUN/Creat 12.1 ratio Sodium 144 mmol/L N [...] 97 U/L N 45-117 CBS W/Automated 10/24/2018 [facility] White Blood 11.3 K/ uL [...] 33.0-73.0 Lymph % 5.4 % Low 20.0-42.0 [place] % 8.6 % N 0.0-10.0 Eo% 0.7 % N 0.0-6.6 Bas% 0.2 % N 0.0-1.1 Immature Grans 0.6 % N 0.0-5.0 NRBC % 0.0 /100WBC < 10/ 100 WBC Neut# 9.55 K/uL High 1.8-7.0 Lymph # 0.61 K/uL Low 1.0-4.0 [place] # 0.97 K/uL High 0.0-0.8 Eos # 0.08 K/uL N 0.0-0.5 Baso # 0.02 K/uL N 0.0-0.1 Immature Grans Absolute 0.07 K/uL NRBC # 0.00 K/uL Laboratory test 10/24/2018 [facility] Gulf 0.31 mmol/ L Low 0.60-1.20 10 finding (315)- - Lactic Acid 10/24/2018 [facility] Lactic Acid 1.7 mmol/L N 0.4-1.9 11, 12 (315)- - Lab Reflex >2.0 for Sepsis? Y CBS W/Automated Diff 10/04/2018 [facility] White Blood 7.7 K/uL N 3.4-10.5 13 (315)- - Count Red Blood Count 4.12 [...] 33.0-73.0 Lymph % 21.4 % N 20.0-42.0 [place] % 11.2 % High 0.0-10.0 Eo% 5.2 % N 0.0-6.6 Bas% 0.1 % N 0.0-1.1 Immature Grans 0.5 % N 0.0-5.0 NRBC % 0.0 /100WBC < 10/ 100 WBC Neut# 4.73 K/uL N 1.8-7.0 Lymph # 1.64 K/uL N 1.0-4.0 [place] # 0.86 K/uL High 0.0-0.8 Eos # 0.40 K/uL N 0.0-0.5 Baso # 0.01 K/uL N 0.0-0.1 Immature Grans Absolute 0.04 K/uL NRBC # 0.00 K/uL Comprehensive Metabolic 10/04/2018 [facility] Glucose 102 mg/dL N 74-106 Panel (315)- - BUN 14 mg/dL N 7-18 Creatinine 1.3 mg/dL N 0.6-1.3 Glom Filtration Rate, Estimate 59 mL/min >60 If >60 mL/min >60 14 BUN/Creat 10.7 ratio Sodium 142 mmol/L N [...] 92 U/L N 45-117 Laboratory test 10/04/2018 [facility] Troponin-I < 0.015 15 finding (315)- - ng/mL Lipid 09/27/2018 [facility] Cholesterol 209 mg/dL High <200 16, 17 (315)- - Triglycerides 190 mg/dL High <150 18 HDL Cholesterol 33 mg/dL Low >40 19 LDL-Cholesterol 138 mg/dL < 100 20 Comprehensive Met 09/27/2018 [facility] Glucose 110 mg/ dL High 74-106 Panel-FCMG (315)- - BUN 20 mg/dL High 7-18 Creatinine 1.4 mg/dL High 0.6-1.3 Glom Filtration Rate, Estimate 54 mL/min >60 If >60 mL/min >60 21 BUN/Creat 14.2 ratio Sodium 144 mmol/L N [...] 108 U/L N 45-117 Laboratory test 09/27/2018 [facility] Osmolality,Serum 314 mOsm/kg High 275-295 22 finding (315)- - Valproic Acid 48.2 ug/mL Low 50.0-100.0 23 [place] 0.49 mmol/L Low 0.60-1.20 24 Thyroid Stim Hormone 4.27 uIU/mL High 0.30-4.20 25 Ammonia < 10 umol/L Low 11-32 26 Prolactin 72.2 ng/mL High 2.5-17.4 BMP W/ Calc Osmo 08/16/2018 [facility] Sodium 149 mmol/L High (136-145) 27 Potassium 4.3 mmol/L (3.6-5.2) Chloride 112 mmol/L High (100-108) Co2 33 mmol/L High (22-31) Anion Gap 4 mmol/L Low (7-16) Urea Nitrogen 22 mg/dL (7-24) Creatinine 1.56 mg/dL High (0.80-1.30) BUN/Creat Ratio 14.1 RATIO (10.0-20.0) Glucose 93 mg/dL (70-99) Calcium 9.3 mg/dL (8.4-10.2) GFR 45 ml/min/1.73m2 Low (>59) GFR ( Amer) 55 ml/min/1.73m2 Low (>59) GFR Interpretation (SEE NOTE) 28 Calculated Osmo 299 mosm/kg (280-300) 29 Ua RFX Micro & 08/10/2018 [facility] Urine Color YELLOW Yellow 30 Culture II (315)- - Urine Clarity CLEAR Clear Urine Glucose - Dipstick NEGATIVE mg/dL Negative Urine Bilirubin - Dipstick NEGATIVE Negative Urine Ketone NEGATIVE mg/dL Negative Urine Specific [place] 1.010 N 1.010-1.030 Urine Blood NEGATIVE Negative Urine PH 6.5 N 6.5-7.5 Urine Protein - Dipstick NEGATIVE mg/dL Negative Urine Urobilinogen - Dipstick 0.2 E.U./dL N 0.2-1.0 Urine Nitrite - Dipstick NEGATIVE Negative Urine Leuk Esterase NEGATIVE Negative Source: URINE, CLEAN CAT <SEE NOTE> 31 CBS W/Automated Diff 08/10/2018 [facility] White Blood 7.8 K/uL N [...] 33.0-73.0 Lymph % 19.2 % Low 20.0-42.0 [place] % 12.2 % High 0.0-10.0 Eo% 2.3 % N 0.0-6.6 Bas% 0.0 % N 0.0-1.1 Neut# 5.18 K/uL N 1.8-7.0 Lymph # 1.50 K/uL N 1.0-4.0 [place] # 0.95 K/uL High 0.0-0.8 Eos # 0.18 K/uL N 0.0-0.5 Baso # 0.00 K/uL N 0.0-0.1 Influenza A/B 08/10/2018 [facility] Influenza A Negative (Negative) Antigen (315)- - Antigen Influenza B Antigen Negative (Negative) 32 Comprehensive Metabolic 08/10/2018 [facility] Glucose 92 mg/dL N 74-106 Panel (315)- - BUN 17 mg/dL N 7-18 Creatinine 1.4 mg/dL High 0.6-1.3 Glom Filtration Rate, Estimate 54 mL/min >60 If >60 mL/min >60 33 BUN/Creat 12.1 ratio Sodium 146 mmol/L High [...] 12-78 Alkaline Phosphatase 96 U/L N 45-117 Laboratory test 08/10/2018 [facility] Gulf 0.64 mmol/ L N 0.60-1.20 34 finding (315)- - Laboratory test 08/10/2018 [facility] CK 108 U/L N 39- 308 finding (315)- - Troponin-I < 0.015 ng/mL 35 Basic Metabolic 06/08/2018 [facility] Glucose 120 mg/dL High 74-106 36 Panel (315)- - BUN 22 mg/dL High 7-18 Creatinine 1.5 mg/dL High 0.6-1.3 Glom Filtration Rate, Estimate 50 mL/min >60 If >60 mL/min >60 37 BUN/Creat 14.6 ratio Sodium 145 mmol/L N 136-145 Potassium 3.9 mmol/L N 3.5-5.1 Chloride 115 mmol/L High 98-107 Carbon Dioxide 24 mmol/L N 21-32 Anion Gap 6 mEq/L Low 8-16 Calcium 9.3 mg/dL N 8.5-10.1 CBS W/Automated Diff 06/05/2018 [facility] White Blood 9.3 K/uL N 3.4-10.5 38 (315)- - Count Red Blood Count 4.61 [...] 33.0-73.0 Lymph % 11.4 % Low 20.0-42.0 [place] % 13.6 % High 0.0-10.0 Eo% 3.1 % N 0.0-6.6 Bas% 0.0 % N 0.0-1.1 Neut# 6.71 K/uL N 1.8-7.0 Lymph # 1.06 K/uL N 1.0-4.0 [place] # 1.27 K/uL High 0.0-0.8 Eos # 0.29 K/uL N 0.0-0.5 Baso # 0.00 K/uL N 0.0-0.1 Basic Metabolic Panel 06/05/2018 [facility] Glucose 124 mg/dL High 74-106 (315)- - BUN 18 mg/dL N 7-18 Creatinine 1.5 mg/dL High 0.6-1.3 Glom Filtration Rate, Estimate 50 mL/min >60 If >60 mL/min >60 39 BUN/Creat 12.0 ratio Sodium 149 mmol/L High 136-145 Potassium 4.1 mmol/L N 3.5-5.1 Chloride 116 mmol/L High 98-107 Carbon Dioxide 30 mmol/L N 21-32 Anion Gap 3 mEq/L Low 8-16 Calcium 9.8 mg/dL N 8.5-10.1 Lactic Acid 06/04/2018 [facility] Lactic Acid 1.3 mmol/L N 0.4-1.9 (315)- - Lab Reflex >2.0 for Sepsis? Y Laboratory test 06/04/2018 [facility] Gulf 0.79 mmol/ L N 0.60-1.20 40 finding (315)- - Laboratory test 06/04/2018 [facility] CK 280 U/L N 39- 308 finding (315)- - Troponin-I < 0.015 ng/mL 41 Carbamazepine 4.5 ug/mL N 4.0-12.0 Comprehensive Metabolic 06/04/2018 [facility] Glucose 122 mg/dL High 74-106 Panel (315)- - BUN 15 mg/dL N 7-18 Creatinine 1.6 mg/dL High 0.6-1.3 Glom Filtration Rate, Estimate 47 mL/min >60 If 56 mL/min >60 42 BUN/Creat 9.3 ratio Sodium 146 mmol/L High [...] 105 U/L N 45-117 Laboratory test 06/04/2018 [facility] Salicylate < 1.7 mg /dL Low 2.8-20.0 43 finding (315)- - Laboratory test 06/04/2018 [facility] Acetaminophen < 2.0 ug/mL Low 10.0-30.0 44 finding (315)- - Laboratory test 06/04/2018 [facility] Act Partial 30.2 N 23.4-35.0 45 finding (315)- - Thrombo Time seconds Protime 06/04/2018 [facility] Protime 13.9 N 12.0-14.4 (315)- - seconds Inr 1.1 N 0.9-1.1 46 CBS W/Automated Diff 06/04/2018 [facility] White Blood 9.3 K/uL N [...] 33.0-73.0 Lymph % 13.5 % Low 20.0-42.0 [place] % 11.1 % High 0.0-10.0 Eo% 2.7 % N 0.0-6.6 Bas% 0.1 % N 0.0-1.1 Neut# 6.75 K/uL N 1.8-7.0 Lymph # 1.25 K/uL N 1.0-4.0 [place] # 1.03 K/uL High 0.0-0.8 Eos # 0.25 K/uL N 0.0-0.5 Baso # 0.01 K/uL N 0.0-0.1 Drugs Of Abuse-Urine 06/04/2018 [facility] Amphetamines ( Urine) Negative Screen 7 (315)- - Barbiturates (Urine) Negative Benzodiazepines (Urine) Negative Cannabinoids (Urine) Negative Cocaine Metabolite (Urine) Negative Methadone (Urine) Negative Opiates (Urine) Negative Urine Cutoffs * 47 Venous Blood Gas 06/04/2018 [facility] Venous Blood Gas 7.29 N 7.25-7.55 (315)- - pH Venous Blood Gas Pco2 58 mmHg High 45-50 Venous Blood Gas Po2 56 mmHg N 40-60 Venous Blood Gas Hco3 27.0 mEq/L Venous Blood Gas Base XS -0.9 mEq/L Venous Blood Gas OS Sat. 84.6 % High 60-80 Ua RFX Micro & 06/04/2018 [facility] Urine Color YELLOW Yellow Culture II (315)- - Urine Clarity CLEAR Clear Urine Glucose - Dipstick NEGATIVE mg/dL Negative Urine Bilirubin - Dipstick NEGATIVE Negative Urine Ketone NEGATIVE mg/dL Negative Urine Specific [place] 1.010 N 1.010-1.030 Urine Blood NEGATIVE Negative Urine PH 7.5 N 6.5-7.5 Urine Protein - Dipstick NEGATIVE mg/dL Negative Urine Urobilinogen - Dipstick 0.2 E.U./dL N 0.2-1.0 Urine Nitrite - Dipstick NEGATIVE Negative Urine Leuk Esterase NEGATIVE Negative Source: URINE, CLEAN CAT <SEE NOTE> 48 Aot Request 06/04/2018 [facility] Aot Request Test(s) added 49 (315)- - Tests to be added: carbamazepine Tricyclic 06/04/2018 [facility] Amitriptyline,Serum None Not 50 Antidepressants (315)- - Detected Estab. ng/mL Nortriptyline,Serum None Detected ng/mL 50-150 Total (Ami+Nor) (SEE NOTE) ng/mL 120-250 51 Imipramine,Serum None Detected ng/mL Not Estab. Desipramine,Serum None Detected ng/mL Not Estab. Total (Imi+Adonis) (SEE NOTE) ng/mL 150-250 52 Doxepin,Serum None Detected ng/mL Not Estab. Nordoxepin,Serum None Detected ng/mL Not Estab. Total(Dox+Nordox) (SEE NOTE) ng/mL 150-250 53 Disclaimer: (SEE NOTE) 54 CBC with Auto Diff-fcmg 12/11/2017 [facility] WBC 7.7 K/uL 4.1-11.0 55 RBC 4.62 M/uL 4.60-6.10 Hemoglobin 14.6 gm/dL [...] 0.0 K/uL 0.0-0.3 Comprehensive Met Panel-FCMG 12/11/2017 [facility] Sodium 143 mmol/L 135- 146 56 Potassium 4.5 mmol/L 3.5-5.2 Chloride# 106 mmol/L 97-110 57 Carbon Dioxide 31 mmol/L 24-34 Glucose 79 mg/dL 70-105 BUN 20 mg/dL 6-26 Creatinine 1.2 mg/dL 0.5-1.4 Calcium 9.8 mg/dL 8.5-10.2 Total Protein 7.0 g/dL 6.0-8.0 Albumin 4.1 g/dL 3.6-4.9 Globulin 2.9 g/dL 2.0-3.5 A/G Ratio 1.4 Ratio 1.0-2.2 Total Bilirubin 0.3 mg/dL 0.1-1.3 Alkaline Phosphatase 87 U/L 24-140 Alt 52 U/L High 3-42 Ast 32 U/L 8-42 Dahlia Egfr >60 >60 58 Non Dahlia Egfr >60 >60 59 Anion Gap 6 mmol/L 5-15 60 Laboratory test finding 12/11/2017 [facility] TSH 2.51 uIU/mL 0.35-4.94 Hepatitis C Virus Antibody NON REACTIVE S/CORatio(Nino Non Reactive 61 PSA 0.370 ng/mL 0.000-4.000 62 Laboratory test 12/11/2017 [facility] [place] 0.72 mmol/L (0.60-1.50) 63 finding Laboratory test 05/22/2017 [facility] Insulin 15.9 uIU/mL 2.6-24.9 64, 65 finding Lab Dept [phone] Basic Metabolic 05/22/2017 [facility] Glucose 113 mg/ dL High 74-106 Panel Lab Dept [phone] BUN 18 mg/dL N 7-18 Creatinine 1.4 mg/dL High 0.6-1.3 Glom Filtration Rate, Estimate 55 mL/min >60 If >60 mL/min >60 66 BUN/Creat 12.8 ratio Sodium 145 mmol/L N 136-145 Potassium 4.2 mmol/L N 3.5-5.1 Chloride 109 mmol/L High 98-107 Carbon Dioxide 31 mmol/L N 21-32 Anion Gap 5 mEq/L Low 8-16 Calcium 10.1 mg/dL N 8.5-10.1 Laboratory 05/22/2017 [facility] Calcium,Ionized 5.9 mg/dL High 4.5-5.6 67 test finding Lab Dept [phone] CBC With Auto 05/21/2017 [facility] WBC 8.8 K/uL 4.1-11.0 68 Diff RBC 4.83 M/uL 4.60-6.10 Hemoglobin 15.6 [...] 05/21/2017 [facility] Sodium 144 mmol/L 135- 146 69 Potassium 3.9 mmol/L 3.5-5.2 Chloride# 107 mmol/L 97-110 70 Carbon Dioxide 31 mmol/L 24-34 Glucose 28 mg/dL Low 70-105 71 Creatinine 1.4 mg/dL 0.5-1.4 Calcium 10.4 mg/dL High 8.5-10.2 Total Protein 7.5 g/dL 6.0-8.0 Albumin 4.3 g/dL 3.6-4.9 Globulin 3.2 g/dL 2.0-3.5 A/G Ratio 1.3 Ratio 1.0-2.2 Total Bilirubin 0.3 mg/dL 0.1-1.3 Alkaline Phosphatase 119 U/L 24-140 Alt 33 U/L 3-42 Ast 20 U/L 8-42 Dahlia Egfr >60 >60 72 Non Dahlia Egfr 52 Low >60 73 Anion Gap 6 mmol/L Low 7-16 74 BUN 20 mg/dL 6-26 Laboratory test 06/24/2016 [facility] Urine Culture Microbiology res 75 finding <SEE NOTE> Laboratory test 03/26/2016 [facility] Fit(Fecal Negative Negative finding Occult Blood) Laboratory test 08/26/2015 [facility] Esophageal See Note 76 finding (315)- - Biopsy Laboratory test 06/06/2015 [facility] TSH 3.71 uIU/mL 0.35-4.94 finding Free T4 0.89 ng/dL 0.70-1.48 T3,Free 1.77 pg/mL 1.71-3.71 Esr 6 mm/hr 0-15 Thyroid Auto AB -RL 06/06/2015 [facility] Thyroglobulin AB @ <20 IU/mL (<40 ) Thyr Peroxidase AB @ <10 IU/mL (<35) 77 Laboratory test 03/16/2015 [facility] PSA 0.350 ng/mL 0.000-4.000 78 finding Basic Metabolic 12/30/2014 [facility] Glucose 104 mg/dL 74-106 Panel (315)- - BUN 13 mg/dL 7-18 Creatinine 1.3 mg/dL 0.6-1.3 Glom Filtration Rate, Estimate 60 mL/min >60 If >60 mL/min >60 79 BUN/Creat 10.0 ratio Sodium 141 mmol/L 136-145 Potassium 4.2 mmol/L 3.5-5.1 Chloride 109 mmol/L High 98-107 Carbon Dioxide 27 mmol/L 21-32 Anion Gap 5 mEq/L Low 8-16 Calcium 9.9 mg/dL 8.5-10.1 CBC 12/30/2014 [facility] White Blood Count 7.3 K/uL [...] 10.2 fL 6.6-10.6 Drugs Of Abuse-Urine 12/29/2014 [facility] Amphetamines ( Urine) Negative Screen 7 (315)- - Barbiturates (Urine) Negative Benzodiazepines (Urine) Negative Cannabinoids (Urine) Negative Cocaine Metabolite (Urine) Negative Methadone (Urine) Negative Opiates (Urine) Negative Urine Cutoffs * 80 Urine Screen 12/29/2014 [facility] Urine Color YELLOW Yellow (315)- - Urine Clarity CLEAR Clear Urine Glucose - Dipstick NEGATIVE mg/dL Negative Urine Bilirubin - Dipstick NEGATIVE Negative Urine Ketone NEGATIVE mg/dL Negative Urine Specific [place] <=1.005 Low 1.010-1.030 Urine Blood TRACE Negative Urine PH 6.0 Low 6.5-7.5 Urine Protein - Dipstick NEGATIVE mg/dL Negative Urine Urobilinogen - Dipstick 0.2 E.U./dL 0.2-1.0 Urine Nitrite - Dipstick NEGATIVE Negative Urine Leuk Esterase NEGATIVE Negative Comprehensive Metabolic 12/29/2014 [facility] Glucose 99 mg/dL 74-106 Panel (315)- - BUN 12 mg/dL 7-18 Creatinine 1.2 mg/dL 0.6-1.3 Glom Filtration Rate, Estimate >60 mL/min >60 If >60 mL/min >60 81 BUN/Creat 10.0 ratio Sodium 140 mmol/L 136-145 [...] 105 U/L 45-117 Laboratory test finding 12/29/2014 [facility] CK 72 U/L 39-308 (315)- - Troponin-I < 0.015 ng/mL 82 CBC W/Automated Diff 12/29/2014 [facility] White Blood 7.5 K/uL 3.4-10.5 (315)- - [...] % 33.0-73.0 Lymph % 18.2 % 17.0-56.0 [place] % 12.8 % High 0.0-10.0 Eo% 3.9 % 0.0-5.0 Bas% 0.1 % 0.1-1.0 Neut# 4.87 K/uL 1.8-7.0 Lymph # 1.36 K/uL Low 1.8-7.0 [place] # 0.96 K/uL High 0.0-0.8 Eos # 0.29 K/uL 0.0-0.5 Baso # 0.01 K/uL Low 0.1-0.2 Liver Function 12/29/2014 [facility] Total Protein 8.0 g/ dL 6.4-8.2 Tests (315)- - Albumin 3.7 g/dL 3.4-5.0 Globulin 4.3 g/dL 1.9-4.3 Alb/Glob 0.9 ratio Bilirubin,Total 0.3 mg/dL 0.2-1.0 Bilirubin,Direct < 0.1 mg/dL 0.0-0.2 Bilirubin,Indirect 0.2 mg/dL 0.0-0.9 Sgot/Ast 19 U/L 15-37 SGPT/Alt 48 U/L 12-78 Alkaline Phosphatase 123 U/L High 45-117 Basic Metabolic Panel 12/29/2014 [facility] Glucose 113 mg/dL High 74-106 (315)- - BUN 12 mg/dL 7-18 Creatinine 1.3 mg/dL 0.6-1.3 Glom Filtration Rate, Estimate 60 mL/min >60 If >60 mL/min >60 83 BUN/Creat 9.2 ratio Sodium 140 mmol/L 136-145 Potassium 4.0 mmol/L 3.5-5.1 Chloride 106 mmol/L 98-107 Carbon Dioxide 26 mmol/L 21-32 Anion Gap 8 mEq/L 8-16 Calcium 10.1 mg/dL 8.5-10.1 Laboratory test finding 12/29/2014 [facility] Lipase 59 U /L Low 73-393 (315)- - CK 88 U/L 39-308 Troponin-I < 0.015 ng/mL 84 CBC W/Automated Diff 12/29/2014 [facility] White Blood 9.2 K/uL 3.4-10.5 (315)- - [...] 33.0-73.0 Lymph % 15.6 % Low 17.0-56.0 [place] % 8.6 % 0.0-10.0 Eo% 2.3 % 0.0-5.0 Bas% 0.0 % Low 0.1-1.0 Neut# 6.72 K/uL 1.8-7.0 Lymph # 1.43 K/uL Low 1.8-7.0 [place] # 0.79 K/uL 0.0-0.8 Eos # 0.21 K/uL 0.0-0.5 Baso # 0.00 K/uL Low 0.1-0.2 Laboratory test 12/29/2014 [facility] Gulf 1.17 0.60-1.20 finding (315)- - mmol/L Laboratory test 12/29/2014 N2N/CCD Import Alanine 48 12-78 finding Aminotransferase (Alt/SGPT) Aspartate Amino Transf (Ast/Sgot) 19 15-37 BUN/Creatinine Ratio 9.2 Basophils # (Auto) 0.00 Low 0.1-0.2 Basophils (%) (Auto) 0.0 Low 0.1-1.0 Carbon Dioxide Level 26 21-32 Eosinophils # (Auto) 0.21 0.0-0.5 Eosinophils (%) (Auto) 2.3 0.0-5.0 Estimated GFR (Non- 60 >60 Indirect Bilirubin 0.2 0.0-0.9 Gulf Level 1.17 0.60-1.20 Lymphocytes # (Auto) 1.43 [...] #2-RL NEGATIVE Stool Occult Blood #3-RL POSITIVE 85 Laboratory test 03/27/2014 N2N/CCD Import PSA 0.4 ng/mL 0.0-4.0 finding Laboratory test 02/21/2013 N2N/[employer] Import Esr Sedrate 37.0 sec High 0.0- 20.0 finding FT4 0.91 ng/dL 0.75-1.54 PSA 0.4 ng/mL 0.0-4.0 TSH 2.78 uIU/ml 0.50-6.00 Thyroid Antithyroglobulin AB < 1.0 Iu/ml 0.0-0.9 86 Thyroid Peroxidase Antibodies 15 IU/mL 0-34 87 Thyrotropin Receptor Antibody 0.62 IU/L 0.00-1.75 Triiodothyronine,Free 2.57 pg/mL 1.95-4.58 LDL Cholesterol 01/04/2013 N2N/[employer] Import Cholesterol 232 mg/dL High 120- 200 Profile HDL Cholesterol 33 mg/dL 29-83 LDL-Cholesterol 144 mg/dL 62-185 Triglycerides 273 mg/dL High 16-231 Laboratory test finding 01/04/2013 N2N/[employer] Import Alb/Glob 1.2 ratio Albumin 4.2 g/dL [...] 14.7 gm/dL 12.8-17.0 If >60 mL/min >60 88 Gulf 0.92 mmol/L 0.60-1.20 Mean Cell Volume 92.4 [...] g/dL 2.7-4.3 Glucose 61 mg/dL Low 75-110 89 Hematocrit 43.0 % 37.0-51.0 Hemoglobin 14.6 GM/dl [...] U/L 21-72 Antinuclear Abs Ifa Negative . 90 Ast 24 U/L 17-59 BUN 11 mg/dL 9-21 BUN/CR Ratio 11.2 Ratio Low 12-20 Basophil 0.2 % 0-2 Calcium 9.7 mg/dL 8.7-10.5 Carbon Dioxide 28 mmol/L 22-30 Chloride 99 mmol/L 98-107 Creatinine, Serum 1.0 mg/dL 0.8-1.5 Eosinophil 5.3 % High 0-4 Globulin 3.0 g/dL 2.7-4.3 Glucose 208 mg/dL High 75-110 91 Hematocrit 40.7 % 37.0-51.0 Hemoglobin 13.5 GM/dl 12.0-16.0 Lymphocytes 16.0 % Low 20-44 MCH 31.1 pg 26.0-32.0 MCHC 33.2 g/dL 31.0-36.0 MCV 94 FL 80-97 Monocytes 7.5 % 2-10.0 Neutrophils 70.9 % High 50-70 Platelet Count 208 K/ul 140-440 Potassium 4.3 mmol/L 3.6-5.0 RBC 4.35 M/ul 4.2-6.3 RDW 11.5 % 11.5-14.5 Rheumatoid Factor Screen Negative Negative 92 Sedimentation Rate 4 mm/hr 0-20 93 Sodium 138 mmol/L 137-145 Total Bilirubin 0.3 [...] - Dipstick Negative mg/dL Negative Urine Specific [place] 1.010 1.010-1.030 Urine Urobilinogen - Dipstick 0.2 E.U./dL 0.2-1.0 Laboratory test 05/05/2008 N2N/CCD Import Aerobic Culture Organism 1 <See 94 finding Note> Gram Stain Gram Stain <See Note> 95 Laboratory test finding 12/10/2007 N2N/CCD Import Anion [...] 31.7-36.0 Mean Platelet Volume 9.6 fL 6.6-10.6 [place] # 1.1 K/uL High 0.0-0.6 [place] % 9.2 % 0.0-10.0 Neut# 9.2 K/uL [...] influenza A and B molecular assay. Method: In[employer]inks Chromatographic immunoassay 4 NO GROWTH: FINAL REPORT 5 NO GROWTH: FINAL REPORT 6 NO GROWTH: FINAL REPORT 7 NO GROWTH: FINAL REPORT 8 FEVER 9 Note: Persistent reduction for 3 months or more in an eGFR <60 mL/min/1.73 m2 defines CKD. Patients with eGFR values >/=60 mL/min/1.73 m2 may also have CKD if evidence of persistent proteinuria is present. The original MDRD equation for estimated GFR is not valid for patients less than 18 years of age. Additional information may be found at www.[email or web address]. 10 ASPIRATION PNA 11 FEVER 12 Specimen slightly Hemolyzed, interpret with caution 13 LOW 02 SAT 14 Note: Persistent reduction for 3 months or more in an eGFR <60 mL/min/1.73 m2 defines CKD. Patients with eGFR values >/=60 mL/min/1.73 m2 may also have CKD if evidence of persistent proteinuria is present. The original MDRD equation for estimated GFR is not valid for patients less than 18 years of age. Additional information may be found at www.kdoqi.org. 15 0.0 - 0.045 ng/mL: Normal 0.046 - 0.5 ng/mL: Suggestive 0.6 - 1.5 ng/mL: Consistent 16 Z13.220 F84.0 G47.8 Z79.899 17 Reference Guidelines*: Desirable: ........... < 200 mg/dL Borderline High: ..... 200-239 mg/dL High: ................ >=240 mg/dL * The National Cholesterol Education Program (NCEP) 18 Reference Guidelines*: Normal: ............. < 150 mg/dL Borderline High: .... 150-199 mg/dL High: ............... 200-499 mg/dL Very High: .......... > 500 mg/dL * Source: National Cholesterol Education Program (NCEP) 19 Reference Guidelines*: Low HDL: ..... < 40 mg/dL Normal: ..... 40-60 mg/dL Desirable: ... > 60 mg/dL *The National Cholesterol Education Program(NCEP) 20 Reference Guidelines*: Optimal:........... <100 mg/dL Near Optimal....... 100-129 mg/dL Borderline High.... 130-159 mg/dL High............... 160-189 mg/dL Very High.......... >=190 mg/dL * Source: National Cholesterol Education Program (NCEP) 21 Note: Persistent reduction for 3 months or more in an eGFR <60 mL/min/1.73 m2 defines CKD. Patients with eGFR values >/=60 mL/min/1.73 m2 may also have CKD if evidence of persistent proteinuria is present. The original MDRD equation for estimated GFR is not valid for patients less than 18 years of age. Additional information may be found at www.[email or web address]. 22 FAX TO ALIZA REBECCA [phone] 23 FAX TO ALIZA REBECCA [phone] 24 FAX TO ALIZA REBECCA [phone] 25 FAX TO ALIZA REBECCA [phone] 26 FAX TO ALIZA REBECCA [phone] 27 today letter 28 NORMAL KIDNEY FUNCTION OR MILD DISEASE - GFR >OR=60 CHRONIC KIDNEY DISEASE - GFR 15 - 59 RENAL FAILURE - GFR <15 Est. GFR calculation based on the MDRD study equation, which assumes a steady state for creatinine. Est. GFR should not be used for medication dosing. 29 Unless otherwise specified, testing performed by [facility] [address] [place] [id number] 30 yelling out 31 URINE, CLEAN CATCH 32 Please Note: A POSITIVE result for influenza [...] influenza A and B molecular assay. Method: Mac[employer] Chromatographic immunoassay 33 Note: Persistent reduction for 3 months or more in an eGFR <60 mL/min/1.73 m2 defines CKD. Patients with eGFR values >/=60 mL/min/1.73 m2 may also have CKD if evidence of persistent proteinuria is present. The original MDRD equation for estimated GFR is not valid for patients less than 18 years of age. Additional information may be found at www.[email or web address]. 34 SERUM SPECIMEN 35 0.0 - 0.045 ng/mL: Normal 0.046 - 0.5 ng/mL: Suggestive 0.6 - 1.5 ng/mL: Consistent 36 Z02.9 37 Note: Persistent reduction for 3 months or more in an eGFR <60 mL/min/1.73 m2 defines CKD. Patients with eGFR values >/=60 mL/min/1.73 m2 may also have CKD if evidence of persistent proteinuria is present. The original MDRD equation for estimated GFR is not valid for patients less than 18 years of age. Additional information may be found at www.[email or web address]. 38 ACUTE ENCEPHALOPATHY 39 Note: Persistent reduction for 3 months or more in an eGFR <60 mL/min/1.73 m2 defines CKD. Patients with eGFR values >/=60 mL/min/1.73 m2 may also have CKD if evidence of persistent proteinuria is present. The original MDRD equation for estimated GFR is not valid for patients less than 18 years of age. Additional information may be found at www.[email or web address]. 40 AMS SINCE THIS MORNING 41 0.0 - 0.045 ng/mL: Normal 0.046 - 0.5 ng/mL: Suggestive 0.6 - 1.5 ng/mL: Consistent 42 Note: Persistent reduction for 3 months or more in an eGFR <60 mL/min/1.73 m2 defines CKD. Patients with eGFR values >/=60 mL/min/1.73 m2 may also have CKD if evidence of persistent proteinuria is present. The original MDRD equation for estimated GFR is not valid for patients less than 18 years of age. Additional information may be found at www.[email or web address]. 43 THERAPEUTIC RANGE: 15-30 mg/dL POTENTIAL TOXICITY VARIES WITH TIME FROM INGESTION. PLEASE CONSULT APPROPRIATE NOMOGRAM. 44 Acetaminophen concentration >150 ug/mL at four hours after ingestion and 50.0 ug/mL at twelve hours after ingestion are often associated with toxic reactions. 45 Is patient on anticoagulants? Coumadin 46 THERAPEUTIC INR RANGE: 2.0 - 3.0 DVT, Pulmonary embolus, prophylaxis against venous thrombosis or systemic embolization in high risk patients. 2.5 - 3.5 Mechanical heart valves 47 URINE SPECIMENS ARE SCREENED AT THE LISTED CUTOFFS DRUG CLASS INITIAL TEST LEVEL Amphetamines 1000 ng/mL Barbiturates 200 ng/mL Benzodiazepines 200 ng/mL Cannabinoids 50 ng/mL Cocaine Metabolite 300 ng/mL Methadone 300 ng/mL Opiates 300 ng/mL Any PRESUMPTIVE POSITIVE findings are UNCONFIRMED. Confirmatory testing is suggested if findings are unexpected. Please contact laboratory if confirmatory testing is desired. SPECIMENS ARE HELD FOR 72 HOURS. 48 URINE, CLEAN CATCH 49 Tests: carbamazepine Instructions: 50 ACUTE ENCEPHALOPATHY 51 Total not calculated due to one or more constituents not detected. Therapeutic range is still applicable. Detection Limit=20 52 Total not calculated due to one or more constituents not detected. Therapeutic range is still applicable. Detection Limit=20 53 Total not calculated due to one or more constituents not detected. Therapeutic range is still applicable. Detection Limit=20 54 This test was developed and its performance characteristics determined by [employer]. It has not been cleared or approved by the Food and Drug Administration. Performed at: - [facility] [address] [id number] Patient Account Representative: Sarah Blakely MD, Phone: [phone] 55 today letter 56 Updated reference range on new analyzer 57 Updated reference range on new analyzer 58 Concerning GFR Guidelines for Americans: Normal function or mild renal disease, if clinically at risk: >/=60 mL/min Moderately decreased: 30-59 Severely decreased: 15-29 Renal failure: <15 59 Concerning GFR Guidelines: Normal function or mild [...] drugs that are excreted by the kidneys. 60 Updated Reference Range 61 S/CO Ratio >/=1.0 is REACTIVE. S/CO <5.0 is Low Reactive. S/CO >/= 5.0 is High Reactive. Effective Jan 09, 2017 all anti-HCV reactive samples are sent for quantitative PCR confirmation. 62 Beginning 07/13/06 PSA values assayed at [facility] uses chemiluminescence methodology manufactured by [employer] for use on the DXI analyzer. Values obtained with different assay methods or kits can not be used interchangeably. Serum PSA measurement is not an absolute test for malignancy. The PSA value should be used in conjunction with information available from clinical evaluation and other diagnostic procedures. 63 Unless otherwise specified, testing performed by [facility] [address] [place] [address] 64 R55, E16.1, Z79.899, E83.52 65 Performed at: - [facility] [address] [id number] Patient Account Representative: Mandy Hurtado MD, Phone: [phone] 66 Note: Persistent reduction for 3 months or more in an eGFR <60 mL/min/1.73 m2 defines CKD. Patients with eGFR values >/=60 mL/min/1.73 m2 may also have CKD if evidence of persistent proteinuria is present. The original MDRD equation for estimated GFR is not valid for patients less than 18 years of age. Additional information may be found at www.[email or web address]. 67 Performed at: RN - [facility] [address] [id number] Patient Account Representative: Mandy Hurtado MD, Phone: [phone] 68 schedule, do with hydration. 69 Updated reference range on new analyzer 70 Updated reference range on new analyzer 71 Critical Result S_GLU:28 Verified by repeat analysis and Called to: GEORGIA Alas at: 05/21/2017 14:17:14 by:NILESH JOYA 72 Concerning GFR Guidelines for Americans: Normal function or mild renal disease, if clinically at risk: >/=60 mL/min Moderately decreased: 30-59 Severely decreased: 15-29 Renal failure: <15 73 Concerning GFR Guidelines: Normal function or mild [...] drugs that are excreted by the kidneys. 74 Updated reference range on new analyzer 75 Microbiology results SOURCE URINE FINAL RESULT No growth 76 OPERATION/PROCEDURE Removal of foreign body, esophagus DIAGNOSIS: [...] Signed Electronically signed Kelley OLIVERA MD [id number] 77 Unless otherwise specified, testing performed by [facility] [address] [place] [id number] 78 Beginning 07/13/06 PSA values assayed at [facility] uses an EIA methodology manufactured by [employer] for use on the DXI analyzer. Values obtained with different assay methods or kits can not be used interchangeably. Serum PSA measurement is not an absolute test for malignancy. The PSA value should be used in conjunction with information available from clinical evaluation and other diagnostic procedures. 79 Note: Persistent reduction for 3 months or more in an eGFR <60 mL/min/1.73 m2 defines CKD. Patients with eGFR values >/=60 mL/min/1.73 m2 may also have CKD if evidence of persistent proteinuria is present. The original MDRD equation for estimated GFR is not valid for patients less than 18 years of age. Additional information may be found at www.[email or web address]. 80 URINE SPECIMENS ARE SCREENED AT THE LISTED CUTOFFS DRUG CLASS INITIAL TEST LEVEL Amphetamines 1000 ng/mL Barbiturates 200 ng/mL Benzodiazepines 200 ng/mL Cannabinoids 50 ng/mL Cocaine Metabolite 300 ng/mL Methadone 300 ng/mL Opiates 300 ng/mL Any POSITIVE findings are UNCONFIRMED. Confirmatory testing is suggested if findings are unexpected. Please contact laboratory if confirmatory testing is desired. SPECIMENS ARE HELD FOR 72 HOURS. 81 Note: Persistent reduction for 3 months or more in an eGFR <60 mL/min/1.73 m2 defines CKD. Patients with eGFR values >/=60 mL/min/1.73 m2 may also have CKD if evidence of persistent proteinuria is present. The original MDRD equation for estimated GFR is not valid for patients less than 18 years of age. Additional information may be found at www.kdoqi.org. 82 0.0 - 0.045 ng/mL: Normal 0.046 - 0.5 ng/mL: Suggestive 0.6 - 1.5 ng/mL: Consistent 83 Note: Persistent reduction for 3 months or more in an eGFR <60 mL/min/1.73 m2 defines CKD. Patients with eGFR values >/=60 mL/min/1.73 m2 may also have CKD if evidence of persistent proteinuria is present. The original MDRD equation for estimated GFR is not valid for patients less than 18 years of age. Additional information may be found at www.kdoqi.org. 84 0.0 - 0.045 ng/mL: Normal 0.046 - 0.5 ng/mL: Suggestive 0.6 - 1.5 ng/mL: Consistent 85 I VERIFIED WITH ANOTHER STAFF MEMBER THAT THIS WAS POSITIVE FOR OCCULT BLOOD IN STOOL - MF,TAR MAN 86 Low positive Thyroglobulin antibodies are seen in a portion of the asymptomatic populations. Antithyroglobulin antibodies measured by [employer] Method[employer] 87 Performed at: - [facility] [address] [id number] Patient Account Representative: Mandy Hurtado MD, Phone: [phone] Performed at: - [facility] [address] [id number] Patient Account Representative: Trevor Brandt MD, Phone: [phone] 88 Note: Persistent reduction for 3 months or more in an eGFR <60 mL/min/1.73 m2 defines CKD. Patients with eGFR values >/=60 mL/min/1.73 m2 may also have CKD if evidence of persistent proteinuria is present. The original MDRD equation for estimated GFR is not valid for patients less than 18 years of age. Additional information may be found at www.[email or web address]. 89 The difference between the current result of 61 and the last result of 208 (10/04/10) exceeds the absolute delta value of 100 defined for this test! The difference between the most recent result of 208 and the current result of 61 exceeds the absolute delta value of 100 as defined for this test. 90 Negative <1:80 Borderline 1:80 Positive >1:80 Performed at: [facility] [id number] Patient Account Representative: Matthew Banks MD, Phone: [phone] 91 The difference between the current result of 208 and the last result of 60 (02/14/10) exceeds the absolute delta value of 100 defined for this test! The difference between the most recent result of 60 and the current result of 208 exceeds the absolute delta value of 100 as defined for this test. 92 QUERY: @EMR Pat ID: QUERY: @EMR Req #: 93 QUERY: @EMR Pat ID: QUERY: @EMR Req #: 94 Organism 1 ! NO PATHOGENS ISOLATED 95 GRAM STAIN ! NO ORGANISMS SEEN Procedures Date Code Description Status 11/09/2018 17710 Measure Blood Oxygen Level Multiple Determinations Completed 10/29/2018 32773 Measure Blood Oxygen Level Single Determination Completed 10/08/2018 45946 Measure Blood Oxygen Level Single Determination Completed 09/27/2018 12022 Electrocardiogram Complete Completed 08/16/2018 36983 Measure Blood Oxygen Level Single Determination Completed 06/08/2018 11649 Measure Blood Oxygen Level Single Determination Completed 10/27/2017 78347 Measure Blood Oxygen Level Single Determination Completed 05/26/2017 47646 Bone Density Study (Dexa) Axial Skeleton Completed (Hips,Pelvis,Spine) 05/26/2017 [id number] Bone Mineral Density Test Completed 08/27/2016 71049 Measure Blood Oxygen Level Single Determination Completed 02/06/2016 30706 Electrocardiogram Complete Completed 11/14/2009 08749 Remove Impacted Cerumen Requiring Instrumentation Completed 07/02/2007 53800 Remove Impacted Cerumen Requiring Instrumentation Completed 03/09/2003 04303 Measure Blood Oxygen Level Single Determination Completed Encounters Type Date Location Provider Dx Diagnosis Office Visit 10/08/2018 3:15p [facility] Latonya Luna MD L20.82 Flexural eczema J44.0 Chronic obstructive pulmon disease w acute lower resp infct E22.1 Hyperprolactinemia F84.0 Autistic disorder F60.9 Personality disorder, unspecified Z68.28 Body mass index (BMI) 28.0-28.9, adult Office Visit 09/27/2018 10:15a [facility] Latonya Luna MD L20.82 Flexural eczema L20.9 Atopic dermatitis, unspecified F60.9 Personality disorder, unspecified K59.00 Constipation, unspecified E87.0 Hyperosmolality and hypernatremia G47.8 Other sleep disorders F84.0 Autistic disorder Z13.220 Encounter for screening for lipoid disorders Z68.27 Body mass index (BMI) 27.0-27.9, adult Office Visit 05/10/2018 9:30a [facility] Cinthia Kirby, S60.415A Abrasion of LEFT [employer]IL[employer]AC[employer] ring finger, initial encounter Office Visit 03/29/2018 11:00a [facility] Latonya Luna MD Z00.01 Encounter for [...] for malignant neoplasm of colon Z79.899 Other halfway (current) drug therapy E66.3 Overweight H91.93 Unspecified hearing loss, bilateral Z68.27 Body mass index (BMI) 27.0-27.9, adult Office Visit 12/11/2017 1:15p [facility] Latonya Luna MD L20.82 Flexural eczema L84 Corns and callosities K59.00 Constipation, unspecified F60.9 Personality disorder, unspecified Z79.899 Other halfway (current) drug therapy Z11.59 Encounter for screening for other viral diseases Z12.5 Encounter for screening for malignant neoplasm of prostate Z68.28 Body mass index (BMI) 28.0-28.9, adult Office Visit 10/27/2017 11:30a [facility] Latonya Luna MD J69.8 Pneumonitis due to inhalation of other solids and liquids Z68.26 Body mass index (BMI) 26.0-26.9, adult Office Visit 09/11/2017 10:00a [facility] Latonya Luna MD L20.82 Flexural eczema L84 Corns and callosities Z68.27 Body mass index (BMI) 27.0-27.9, adult Office Visit 07/08/2017 4:00p [facility] Latonya Luna MD L20.82 Flexural eczema L40.9 Psoriasis, unspecified Office Visit 06/24/2017 9:00a [facility] Latonya Luna MD L20.82 Flexural eczema L40.9 Psoriasis, unspecified R55 Syncope and collapse R53.1 Weakness E16.1 Other hypoglycemia L03.116 Cellulitis of LEFT lower limb Office Visit 06/10/2017 8:45a [facility] Latonya Luna MD L20.82 Flexural eczema R55 Syncope and collapse R53.1 Weakness E16.1 Other hypoglycemia Office Visit 05/20/2017 11:30a [facility] Latonya Luna MD S80.02xA Contusion of LEFT knee, initial encounter R55 Syncope and collapse I44.4 LEFT anterior fascicular block I51.7 Cardiomegaly Z87.81 Personal history of (healed) traumatic fracture R21 Rash and other nonspecific skin eruption Z11.59 Encounter for screening for other viral diseases Office Visit 05/01/2017 9:30a [facility] Jus Chairez R21 Rash and other DO nonspecific skin eruption Office Visit 03/27/2017 10:30a [facility] Jus Chairez, Z01.818 Encounter for other [...] for opn fx Office Visit 12/19/2016 11:00a [facility] Jus Chairez DO L03.811 Cellulitis of head [any part, except face] J01.90 Acute sinusitis, unspecified H62.41 Otitis externa in oth diseases classd elswhr, RIGHT ear Office Visit 12/05/2016 9:00a [facility] Claudia Timmons PA L03.116 Cellulitis of LEFT lower limb Office Visit 09/25/2016 1:45p [facility] Jus Chairez DO L03.031 Cellulitis of RIGHT toe S92.411A Disp fx of proximal phalanx of RIGHT great toe, init Office Visit 08/27/2016 11:00a [facility] Jus Chairez J01.90 Acute sinusitis, DO unspecified Office Visit 07/11/2016 8:45a [facility] Jus Chairez S92.414A Nondisp fx of proximal DO phalanx of RIGHT great toe, init Office Visit 07/03/2016 8:45a [facility] Jus Chairez, L92.0 Granuloma annulare DO Office Visit 03/18/2016 3:30p [facility] Jus Chairez, F79 Unspecified DO intellectual disabilities F60.9 Personality disorder, unspecified K59.00 Constipation, unspecified L20.9 Atopic dermatitis, unspecified H91.93 Unspecified hearing loss, bilateral Z12.11 Encounter for screening for malignant neoplasm of colon Z23 Encounter for immunization Office Visit 02/26/2016 2:30p [facility] Jus Chairez, J06.9 Acute upper DO respiratory infection, unspecified Office Visit 02/06/2016 9:30a [facility] Jus Chairez, R00.2 Palpitations DO Office Visit 11/12/2015 1:00p [facility] Mirta, S80.922A Unsp superficial Cinthia, [employer] injury of LEFT lower leg, init encntr Office Visit 08/27/2015 4:15p [facility] Jus Chiarez, T17.208A Unsp foreign body in DO pharynx causing oth injury, init encntr Office Visit 07/24/2015 10:30a [facility] Jus Chairez, R21 Rash and other DO nonspecific skin eruption Office Visit 04/06/2015 9:00a [facility] Mirta, Z01.818 Encounter for other Cinthia, [employer] preprocedural examination K04.0 Pulpitis H57.9 Unspecified disorder of eye and adnexa F79 Unspecified intellectual disabilities F60.9 Personality disorder, unspecified F50.8 Other eating disorders K59.00 Constipation, unspecified L20.9 Atopic dermatitis, unspecified H91.93 Unspecified hearing loss, bilateral Office Visit 03/16/2015 9:00a [facility] Jus Chairez DO K59.00 Constipation, unspecified F60.9 Personality disorder, unspecified F79 Unspecified intellectual disabilities F50.8 Other eating disorders L20.9 Atopic dermatitis, unspecified H91.93 Unspecified hearing loss, bilateral Z12.5 Encounter for screening for malignant neoplasm of prostate Office Visit 10/02/2014 3:00p [facility] Cinthia Kirby, 924.20 Contusion Foot [employer] Office Visit 06/26/2014 4:00p [facility] Cinthia Kirby, 465.9 URI Upper [employer] Respiratory Infections Acute Unspec Sites Office Visit 06/15/2014 2:45p [facility] Jus Chairez DO 465.9 URI Upper Respiratory Infections Acute Unspec Sites Plan of Treatment Future Appointment(s):12/15/2018 3:00 pm - Latonya Luna MD at [facility]2018 3:00 pm - Schedule, Laboratory at [facility]04/05/2019 11:00 am - Latonya Luna MD at [facility]11/09/2018 - Latonya Luna MDE22.1 HyperprolactinemiaNew Labs :Prolactin, Scheduled: 11/10/18Comments:very high prolactin level at 72 , per Dr Chen triage 10/14 levels are actually down. Dr Chen is prescribing meds, olanzipine 15mg and Chlorpromazine 200mg bid which may be cause of high prolactin. Note to him today. Also, please have staff reach out to guardian about doing the MRI of pituitary or not. Will recheck labs today to see where the levels are. Another option is referral to endocrinololgist or just reducing doses of medsnote addended, fax to Dr Chen and abhijitFojennifer up:prolactin now; chest xray in 1 mo and ov fu 3 days later for pneumonia and high iywsnjdxpP03.0 Autistic jwpofnjgG61.9 Personality disorder, unspecifiedComments:high risk meds Olanzapine, Chlorpromazine may be causing high prolactin, Dr Chen has continud meds, feels levels are lower at 72. recheck ordered. mknxpijaF87.0 Pneumonitis due to inhalation of food and vomitNew Xrays:Chest Xray, 2 Views, Scheduled: 12/09/18Comments:much betterchest xray was done early, still shows pneumonia, repeat in 1 [id number] Body mass index (BMI) 27.0-27.9, adultComments: recommend reduced calorie diet and healthy diet and regular exercise to help with weight loss
[2018-11-11 16:16] VITALS: BP 137/89
--- NOTE | 2018-11-11 16:42 | UC ---
Knee Pain HPI - HPI Summary HPI Summary: 63 yo male fell on left knee x 2 today\ he is non verbal and lives in a detention - History of Current Complaint Chief Complaint: UCLowerExtremity Stated Complaint: LEFT KNEE INJURY Time Seen by Provider: 11/11/18 16:28 Onset/Duration: Sudden Onset Severity Initially: Mild Severity Currently: Mild Pain Intensity: 0 Character: Unable to Describe Associated Signs And Symptoms: Positive: Swelling Able to Bear Weight: Yes Legs: 1 - swollen/abraided - Allergies/Home Medications Allergies/Adverse Reactions: Allergies Allergy/AdvReac Type Severity Reaction Status Date / Time No Known Allergies Allergy Verified 10/30/18 18:22 PMH/Surg Hx/FS Hx/Imm Hx Previously Healthy: Yes - profound MR - Surgical History Surgical History: Yes Surgery Procedure, Year, and Place: cataract. septoplasty - Family History Known Family History: Positive: Unknown, Other - PT WITH SEVERE MR, UNABLE TO PROVIDE FAMILY HISTORY. NONE PER STAFF - Social History Alcohol Use: None Substance Use Type: None Smoking Status (MU): Never Smoked Tobacco Review of Systems All Other Systems Reviewed And Are Negative: Yes Constitutional: Positive: Negative Skin: Positive: Negative Eyes: Positive: Negative ENT: Positive: Negative Respiratory: Positive: Negative Cardiovascular: Positive: Negative Gastrointestinal: Positive: Negative Genitourinary: Positive: Negative Motor: Positive: Negative Neurovascular: Positive: Negative Musculoskeletal: Positive: Arthralgia - left knee Neurological: Positive: Negative Psychological: Positive: Negative Physical Exam Triage Information Reviewed: Yes Appearance: Well-Appearing, No Pain Distress, Well-Nourished Vital Signs: Initial Vital Signs Temp 97.2 F 11/11/18 16:11 Pulse 83 11/11/18 16:11 Resp 16 11/11/18 16:11 BP 137/89 11/11/18 16:11 Pulse Ox 98 11/11/18 16:11 Vital Signs Reviewed: Yes ENT: Negative: Nasal congestion, Nasal drainage, Trismus, Muffled voice, Hoarse voice Neck: Positive: Supple, Nontender Respiratory: Positive: Lungs clear, Normal breath sounds, No respiratory distress, No accessory muscle use Cardiovascular: Positive: RRR, No Murmur Musculoskeletal: Positive: ROM Intact, No Edema Neurological: Positive: Alert Psychological Exam: Normal Skin Exam: Normal Diagnostics - Radiology No standard instances Radiology Interpretation Completed By: Radiologist Summary of Radiographic Findings: no fx Knee Pain Course/Dx - Differential Dx/Diagnosis Provider Diagnosis: Contusion of left knee, Abrasion of left knee Discharge - Sign-Out/Discharge Documenting (check all that apply): Patient Departure All imaging exams completed and their final reports reviewed: Yes - Discharge Plan Condition: Stable Disposition: HOME Patient Education Materials: Contusion in Adults (ED), Abrasion (ED) Referrals: Latonya Luna MD [Primary Care Provider] - If Needed (for any concerns) - Billing Disposition and Condition Condition: STABLE Disposition: Home
== END 2018-11-11 17:12 | disposition home or self-care (01) ==
LOC: UCCORT 16:01
DX: S80.212A Abrasion, left knee, initial encounter (principal); W19.XXXA Unspecified fall, initial encounter; Y92.9 Unspecified place or not applicable; R47.01 Aphasia; F72 Severe intellectual disabilities
CPT/HCPCS: 99211; G0463

== ENCOUNTER 2018-11-20 18:42 | Emergency (ER) | payer MEDICARE, MEDICAID ==
--- NOTE | 2018-11-20 19:18 | UC ---
Epistaxis Nasal HPI - HPI Summary HPI Summary: C/O possible sinus infection with bloody nose and more irritable. No fevers. - History of Current Complaint Chief Complaint: UCRespiratory Stated Complaint: SINUSES Time Seen by Provider: 11/20/18 19:08 Hx Obtained From: Family/Physical Therapist Center Manager Hx From Patient Unobtainable Due To: Other - MR Onset/Duration: Gradual Onset, Lasting Days - 1 Timing: Intermittent Episode Lasting Severity Currently: None Pain Intensity: 0 Character: Light Aggravating Factor(s): Other - allergies Alleviating Factor(s): Nothing Associated Signs And Symptoms: Positive: Nasal Discharge - Allergies/Home Medications Allergies/Adverse Reactions: Allergies Allergy/AdvReac Type Severity Reaction Status Date / Time No Known Allergies Allergy Verified 11/20/18 18:53 PMH/Surg Hx/FS Hx/Imm Hx Other Neurological History: MR, H/O Encephalitis - Surgical History Surgical History: Yes Surgery Procedure, Year, and Place: cataract. septoplasty - Family History Known Family History: Positive: Unknown, Other - PT WITH SEVERE MR, UNABLE TO PROVIDE FAMILY HISTORY. NONE PER STAFF - Social History Occupation: Disabled Lives: Retirement Alcohol Use: None Substance Use Type: None Smoking Status (MU): Never Smoked Tobacco Review of Systems All Other Systems Reviewed And Are Negative: Yes Skin: Positive: Other - excoriations on head ENT: Positive: Epistaxis Is Patient Immunocompromised?: No Physical Exam Triage Information Reviewed: Yes Appearance: Well-Appearing, No Pain Distress, Well-Nourished Vital Signs: Initial Vital Signs Temp 97.9 F 11/20/18 18:53 Resp 16 11/20/18 18:53 Vital Signs Reviewed: Yes Eyes: Positive: Conjunctiva Clear ENT: Positive: Pharynx normal, Nasal congestion, TMs normal Dental: Positive: Other: Neck: Positive: Supple, No Lymphadenopathy Respiratory Exam: Normal Cardiovascular Exam: Normal Musculoskeletal Exam: Normal Neurological: Positive: Other: - non-verbal Psychological Exam: Normal - for his mental status Skin: Positive: Other - excoriations over the scalp Epistaxis Nasal Course/Dx - Differential Dx/Diagnosis Differential Diagnosis/HQI/PQRI: Allergic Rhinitis, Epistaxis, Sinusitis Provider Diagnosis: Epistaxis, Allergic rhinitis Discharge - Sign-Out/Discharge Documenting (check all that apply): Patient Departure All imaging exams completed and their final reports reviewed: No Studies - Discharge Plan Condition: Stable Disposition: HOME Prescriptions: Cetirizine HCl 10 mg PO BEDTIME #30 tablet Patient Education Materials: Nosebleed (ED), Allergic Rhinitis (ED) Referrals: Latonya Luna MD [Primary Care Provider] - 1 Week (recheck allergies/ bloody nose.) - Billing Disposition and Condition Condition: STABLE Disposition: Home
== END 2018-11-20 19:33 | disposition home or self-care (01) ==
LOC: UCCORT 18:42
DX: R04.0 Epistaxis (principal); J30.9 Allergic rhinitis, unspecified
CPT/HCPCS: 99212; G0463

== ENCOUNTER 2019-01-22 10:12 | Emergency (ER) | payer MEDICARE, MEDICAID ==
[2019-01-22 11:16] VITALS: BP 102/61
--- NOTE | 2019-01-22 11:30 | UC ---
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 she even called the facility to confirm. she feels that his left ankle always looked like that -behavior is normal. non-verbal. he is appeased by eating celery sticks and they are running out by the time I see him. concern about his behavior if he runs out. -Violeta notes no problem with ambulation. - History of Current Complaint Chief Complaint: UCLowerExtremity Stated Complaint: LEFT ANKLE SWOLLEN Time Seen by Provider: 01/22/19 11:14 Pain Intensity: 0 - Allergies/Home Medications Allergies/Adverse Reactions: Allergies Allergy/AdvReac Type Severity Reaction Status Date / Time No Known Allergies Allergy Verified 11/20/18 18:53 Home Medications: Home Medications M O M 15 ml PO SEE INSTRUCTIONS PRN 01/22/19 [History Confirmed 01/22/19] Vanicream Plain 1 applic TOPICAL BID 01/22/19 [History Confirmed 01/22/19] PMH/Surg Hx/FS Hx/Imm Hx Previously Healthy: Yes - severe, MR, autism. - Surgical History Surgical History: Yes Surgery Procedure, Year, and Place: cataract. septoplasty - Family History Known Family History: Positive: Unknown, Other - PT WITH SEVERE MR, UNABLE TO PROVIDE FAMILY HISTORY. NONE PER STAFF - Social History Alcohol Use: None Substance Use Type: None Smoking Status (MU): Never Smoked Tobacco Review of Systems All Other Systems Reviewed And Are Negative: Yes Constitutional: Positive: Negative Skin: Positive: Negative Respiratory: Positive: Negative Cardiovascular: Positive: Negative Gastrointestinal: Positive: Negative Motor: Positive: Negative Neurovascular: Positive: Negative Musculoskeletal: Positive: Other: - see above Neurological: Positive: Negative Psychological: Positive: Negative Is Patient Immunocompromised?: No Physical Exam Triage Information Reviewed: Yes Appearance: Well-Appearing, No Pain Distress, Well-Nourished - ambulates around the [place] at good pace without any signs of distress/no grimacing. does not appear to be in pain but quite happy and cooperative. Vital Signs: Initial Vital Signs Temp 97.7 F 01/22/19 11:08 Pulse 75 01/22/19 11:08 Resp 18 01/22/19 11:08 BP 102/61 01/22/19 11:08 Pulse Ox 95 01/22/19 11:08 Vital Signs Reviewed: Yes Eye Exam: Normal Respiratory Exam: Normal Cardiovascular Exam: Normal Musculoskeletal: Positive: Other: - right foot/ankle without any redenss/ swelling or deformities. there is obvious bunion. left foot with prominenet lateral maleoulus w/ mild non-blanching erythema. no sores. no lesions. no fluctuance. cool to touch. CR brisk. good color. does not appear to be tender w / palpation or ROM. FROM. wearing good sneakers that are new. hygiene is good. Psychological: Positive: Other: - non-verbal - Additional Comments ROS is limited d/t pt being non-communicative. questions reviewed w/ Violeta per their history. Lower Extremity Course/Dx - Course Course Of Treatment: left ankle xray - Differential Dx/Diagnosis Differential Diagnosis/HQI/PQRI: Arthritis, Gout, Infection, Sprain, Strain Provider Diagnosis: Arthritis of left ankle Discharge ED - Sign-Out/Discharge Documenting (check all that apply): Patient Departure All imaging exams completed and their final reports reviewed: Yes - Discharge Plan Condition: Stable Disposition: HOME Referrals: Latonya Luna MD [Primary Care Provider] - Marc Machuca MD [Medical Doctor] - 6 Days Additional Instructions: Official xray report "Report: #. 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 #. Negative for fracture or dislocation. #. Negative for periosteal reaction or suspicious osteolysis or osteosclerosis to raise concern for osteomyelitis. #. Negative for subcutaneous emphysema or conspicuous foreign body. IMPRESSION: #. Interval progression of degenerative arthropathy compared with the 2015 exam." please have him follow up with orthopedic for chronic changes. -no fracture but significant arthritis - Billing Disposition and Condition Condition: STABLE Disposition: Home
== END 2019-01-22 12:07 | disposition home or self-care (01) ==
LOC: UCCORT 10:12
DX: M19.072 Primary osteoarthritis, left ankle and foot (principal); F72 Severe intellectual disabilities; F84.0 Autistic disorder
CPT/HCPCS: 99211; G0463

== ENCOUNTER 2019-05-01 09:09 | Emergency (ER) | payer MEDICARE, MEDICAID ==
--- OUTSIDE RECORDS SUMMARY | 2019-05-01 09:37 | XMS REPORT | Continuity of Care Document ---
:1955 External Reference #:[id number] Author Name Latonya Luna MD Address [address] [place] [address] Care Team Providers Name Role Phone Travis Chen - Psychiatry Care Team Information Telesales Supervisor [phone] Neelima Maritza Care Team Information Telesales Supervisor [phone] Dafne Ashford - Allergy & Care Team Information Telesales Supervisor [phone] Immunology Antonio Hernandez - Gastroenterology Care Team Information Telesales Supervisor Problems Active Problems Provider Date Constipation Jus [...] disease with Latonya Luna MD Onset: 2018 (acute) lower respiratory infection Intellectual disability Latonya Luna MD Onset: 10/29/2018 Autistic disorder Latonya Luna MD Onset: 03/29/2018 Social History Type Date Description Comments Sex Unknown ETOH Use Denies alcohol use Tobacco Use Start: Unknown Patient has never smoked Recreational Drug Use Denies Drug Use Smoking Status Reviewed: 03/29/18 Patient has never smoked Allergies, Adverse Reactions, Alerts Description No Known Drug Allergies Medications Active Medications SIG Qnty Indications Ordering Provider Date Vanicream apply to whole 90gm L20.82 Latonya Luna, 10/18/2018 Cream body twice daily Resource Thickenup daily as directed 6399ml F79 Latonya Luna, 2017 Thickened Water Honey for honey thick Consistency [...] mouth two times a MD Capsules day Depakote ER take one tablets by F60.9 Gustavo Travis 500mg mouth tid Tablets ER 24HR F79 F84.0 Vaseline apply daily to Unknown Gel Nostril Cetirizine HCL 1 by mouth every 30units J30.9 Latonya Luna, 10mg Chewtabs night at bedtime Mupirocin Unknown 2% Ointment Triamcinolone Acetonide to lower leg rash 45gm L20.82 Latonya Luna, 0.1% once daily Cream Amaya Carbonate take 1 capsule by F60.9 Unknown 150mg mouth twice daily Capsules with water/food F84.0 Flomax 1 by mouth every day Unknown 0.4mg Capsules Chlorpromazine HCL 2 po bid F60.9 Gustavo, Travis 100mg Tablets Bismuth 2tablespoon po as Unknown needed after each loose bm Triple Antibiotic to be placed on Unknown Ointment minor scratches as needed Tolnaftate between toes daily Unknown [place] Tussin 2 tsp q 6 hours prn Unknown cough without fever Ibuprofen 200 2 po q 4 hours as Unknown 200mg Tablets needed for pain up to 5 days Milk Of Magnesia give 15 milliliters 355ml K59.00 Mihaela, on day 3 and 4 if no Jus, DO 1200mg/15ML Suspension bm. Mylanta 1 tablespoon by 1Bottle Unknown [phone]/5ML mouth every 4 hours Suspension minor stomach upset. Kaopectate 2 tablespoons PO 1Bottle R19.7 Unknown 262mg/15ML after each loose Suspension stool. Tinactin spray between toes 150gm B35.3 [place], 1% Aerosol daily MD Latonya Kerasal apply to calloused 1Tube L20.9 [place], 5-10% Ointment areas every other MD Latonya day after bath L20.82 Olanzapine 15mg Tablets 1 PO qd 30Tabs F60.9 Unknown History Medications Amoxicillin/Clavulanate Every 12 10tabs J69.0 Unknown 10/27/2018 - Potassium Hours 11/01/2018 875-125mg Tablets Vanicream apply to 3units L20.82 [place], 10/18/2018 - Bar whole body MD Latonya 10/18/2018 twice daily, discon't 10/18/2018 Prednisone 2 po daily 6tabs J44.0 Unknown 10/04/2018 - 20mg Tablets for 3 days 10/07/2018 Immunizations CPT Code Status Date Vaccine Reaction Lot # [id number] Given 01/25/2019 Influenza Virus Vaccine,Quadrivalent,Split,Pr eserv Free, 0.5mL,[place] [address] Given 05/03/2018 Tdap (Adacel) Ages 7 And Above Only 84893 Given 03/16/2018 Influenza Virus Vaccine,Quadrivalent,Split,Pr eserv Free, 0.5mL,Im Q2037 Given 04/10/2017 Fluvirin Immunization Given at [facility] [address] Given 03/27/2017 Pneumococcal 23 Immunization Im inj completed, Pt [id number] Adult Or Immunosuppressed tolerated well Patient Q2037 Given 03/22/2016 Fluvirin Immunization Given At Pharm[facility] [address] Given 03/18/2016 Prevnar 13 Pneumococal Im inj completed, Pt [id number] Conjugate Vaccine tolerated well 37289 Given 02/21/2013 Afluria Or Fluvirin Flu Vac Intramuscular 59943 Given 01/22/2012 Afluria Or Fluvirin Flu Vac Intramuscular 37369 Given 02/17/2011 Afluria Or Fluvirin Flu Vac Intramuscular 93513 Given 02/14/2010 Afluria Or Fluvirin Flu Vac Intramuscular 61200 Given 02/12/2009 Tdap (Adacel) Ages 7 And Above Only 55319 Given 03/09/2008 Afluria Or Fluvirin Flu Vac Intramuscular 72306 Given 03/17/2007 Afluria Or Fluvirin Flu Vac Intramuscular 29083 Given 04/06/2006 Afluria Or Fluvirin Flu Vac Intramuscular 06393 Given 04/03/2005 Afluria Or Fluvirin Flu Vac Intramuscular 62534 Given 04/03/2005 Afluria Or Fluvirin Flu Vac Intramuscular 23700 Given 03/28/2003 Afluria Or Fluvirin Flu Vac Intramuscular 97160 Refused 03/29/2018 Shingrix (Shingles) Zoster Vaccine can get at pharmacy HZV, Recombinant, Subunit, Adj Vital Signs Date Vital Result Comment 03/16/2019 4:22pm Weight 174.00 lb Heart Rate 88 /min BP Systolic 130 mmHg BP Diastolic 76 mmHg Respiratory Rate 18 /min Height 67 inches 5'7" BMI (Body Mass Index) 27.2 kg/m2 01/26/2019 10:41am Body Temperature 97.0 F Weight 172.00 lb Heart Rate 89 /min BP Systolic 128 mmHg BP Diastolic 80 mmHg Respiratory Rate 18 /min Height 67 inches 5'7" O2 % BldC Oximetry 97 % Ra BMI (Body Mass Index) 26.9 kg/m2 Results Test Acquired Date Facility Test Result H/L Range Note Laboratory test 11/10/2018 [facility] Prolactin 59.1 ng/ml High 2.6-13.1 1 , 2 finding Basic Metabolic 10/25/2018 [facility] Glucose 108 mg/dL High 74-106 3 Panel (315)- - BUN 16 mg/dL Normal 7-18 Creatinine 1.3 mg/dL Normal 0.6-1.3 Glom Filtration Rate, Estimate 59 mL/min >60 If >60 mL/min >60 4 BUN/Creat 12.3 ratio Sodium 145 mmol/L Normal 136-145 Potassium 4.0 mmol/L Normal 3.5-5.1 Chloride 113 mmol/L High 98-107 Carbon Dioxide 28 mmol/L Normal 21-32 Anion Gap 4 mEq/L Low 8-16 Calcium 8.3 mg/dL Low 8.5-10.1 CBS W/Automated 10/25/2018 [facility] White Blood 10.7 K/ uL High 3.4-10.5 Diff (315)- - Count Red Blood Count 3.87 M/uL Low 4.20-5.80 Hemoglobin 12.2 gm/dL Low 12.8-17.0 Hematocrit 37.9 % Low 38.0-48.0 Mean Cell Volume 97.9 fl High 80.0-96.0 Mean Corpuscular HGB 31.5 pg Normal 27.0-33.0 Mean Corpuscular HGB Conc 32.2 g/dL Normal 31.7-36.0 Platelet Count 156 K/uL Normal 155-360 Red Cell Distri Width SD 44.7 fl Normal 36-51 Red Cell Distri Width %CV 12.5 % Normal 11.6-15.8 Mean Platelet Volume 10.7 fl High 6.6-10.6 Neut% 75.0 % High 33.0-73.0 Lymph % 13.3 % Low 20.0-42.0 [place] % 9.0 % Normal 0.0-10.0 Eo% 2.1 % Normal 0.0-6.6 Bas% 0.1 % Normal 0.0-1.1 Immature Grans 0.5 % Normal 0.0-5.0 NRBC % 0.0 /100WBC < 10/ 100 WBC Neut# 8.03 K/uL High 1.8-7.0 Lymph # 1.42 K/uL Normal 1.0-4.0 [place] # 0.96 K/uL High 0.0-0.8 Eos # 0.23 K/uL Normal 0.0-0.5 Baso # 0.01 K/uL Normal 0.0-0.1 Immature Grans Absolute 0.05 K/uL NRBC # 0.00 K/uL Influenza A/B 10/25/2018 [facility] Influenza A Negative (Negative) Antigen (315)- - Antigen Influenza B Antigen Negative (Negative) 5 Blood Culture 10/24/2018 [facility] Blood Culture NO GROWTH: FINAL 6 (315)- - Aerobic <SEE NOTE> Blood Culture Anaerobic NO GROWTH: FINAL <SEE NOTE> 7 Laboratory test 10/24/2018 [facility] Amaya 0.31 Low 0.60-1.20 finding (315)- - mmol/L Lactic Acid 10/24/2018 [facility] Lactic Acid 1.7 mmol/L Normal 0.4-1.9 8, 9 (315)- - Lab Reflex >2.0 for Sepsis? Y CBS W/Automated 10/24/2018 [facility] White Blood 11.3 K/ uL High 3.4-10.5 Diff (315)- - Count Red Blood Count 4.53 M/uL Normal 4.20-5.80 Hemoglobin 14.8 gm/dL Normal 12.8-17.0 Hematocrit 43.9 % Normal 38.0-48.0 Mean Cell Volume 96.9 fl High 80.0-96.0 Mean Corpuscular HGB 32.7 pg Normal 27.0-33.0 Mean Corpuscular HGB Conc 33.7 g/dL Normal 31.7-36.0 Platelet Count 191 K/uL Normal 155-360 Red Cell Distri Width SD 43.8 fl Normal 36-51 Red Cell Distri Width %CV 12.3 % Normal 11.6-15.8 Mean Platelet Volume 10.9 fl High 6.6-10.6 Neut% 84.5 % High 33.0-73.0 Lymph % 5.4 % Low 20.0-42.0 [place] % 8.6 % Normal 0.0-10.0 Eo% 0.7 % Normal 0.0-6.6 Bas% 0.2 % Normal 0.0-1.1 Immature Grans 0.6 % Normal 0.0-5.0 NRBC % 0.0 /100WBC < 10/ 100 WBC Neut# 9.55 K/uL High 1.8-7.0 Lymph # 0.61 K/uL Low 1.0-4.0 [place] # 0.97 K/uL High 0.0-0.8 Eos # 0.08 K/uL Normal 0.0-0.5 Baso # 0.02 K/uL Normal 0.0-0.1 Immature Grans Absolute 0.07 K/uL NRBC # 0.00 K/uL Comprehensive Metabolic 10/24/2018 [facility] Glucose 123 mg/dL High 74-106 Panel (315)- - BUN 17 mg/dL Normal 7-18 Creatinine 1.4 mg/dL High 0.6-1.3 Glom Filtration Rate, Estimate 54 mL/min >60 If >60 mL/min >60 10 BUN/Creat 12.1 ratio Sodium 144 mmol/L Normal 136-145 Potassium 4.0 mmol/L Normal 3.5-5.1 Chloride 111 mmol/L High 98-107 Carbon Dioxide 29 mmol/L Normal 21-32 Anion Gap 4 mEq/L Low 8-16 Calcium 9.1 mg/dL Normal 8.5-10.1 Total Protein 8.1 g/dL Normal 6.4-8.2 Albumin 3.5 g/dL Normal 3.4-5.0 Globulin 4.6 g/dL High 1.9-4.3 Alb/Glob 0.8 ratio Bilirubin,Total 0.3 mg/dL Normal 0.2-1.0 Sgot/Ast 19 U/L Normal 15-37 SGPT/Alt 29 U/L Normal 12-78 Alkaline Phosphatase 97 U/L Normal 45-117 Blood Culture 10/24/2018 [facility] Blood Culture NO GROWTH: 11, 12 (315)- - Aerobic FINAL <SEE NOTE> Blood Culture Anaerobic NO GROWTH: FINAL <SEE NOTE> 13 CBS W/Automated 10/04/2018 [facility] White Blood 7.7 K/ uL Normal 3.4-10.5 14 Diff (315)- - Count Red Blood Count 4.12 M/uL Low 4.20-5.80 Hemoglobin 13.4 gm/dL Normal 12.8-17.0 Hematocrit 40.0 % Normal 38.0-48.0 Mean Cell Volume 97.1 fl High 80.0-96.0 Mean Corpuscular HGB 32.5 pg Normal 27.0-33.0 Mean Corpuscular HGB Conc 33.5 g/dL Normal 31.7-36.0 Platelet Count 166 K/uL Normal 155-360 Red Cell Distri Width SD 44.3 fl Normal 36-51 Red Cell Distri Width %CV 12.4 % Normal 11.6-15.8 Mean Platelet Volume 10.6 fl Normal 6.6-10.6 Neut% 61.6 % Normal 33.0-73.0 Lymph % 21.4 % Normal 20.0-42.0 [place] % 11.2 % High 0.0-10.0 Eo% 5.2 % Normal 0.0-6.6 Bas% 0.1 % Normal 0.0-1.1 Immature Grans 0.5 % Normal 0.0-5.0 NRBC % 0.0 /100WBC < 10/ 100 WBC Neut# 4.73 K/uL Normal 1.8-7.0 Lymph # 1.64 K/uL Normal 1.0-4.0 [place] # 0.86 K/uL High 0.0-0.8 Eos # 0.40 K/uL Normal 0.0-0.5 Baso # 0.01 K/uL Normal 0.0-0.1 Immature Grans Absolute 0.04 K/uL NRBC # 0.00 K/uL Comprehensive 10/04/2018 [facility] Glucose 102 mg/dL Normal 74-106 Metabolic Panel (315)- - BUN 14 mg/dL Normal 7-18 Creatinine 1.3 mg/dL Normal 0.6-1.3 Glom Filtration Rate, Estimate 59 mL/min >60 If >60 mL/min >60 15 BUN/Creat 10.7 ratio Sodium 142 mmol/L Normal 136-145 Potassium 4.0 mmol/L Normal 3.5-5.1 Chloride 107 mmol/L Normal 98-107 Carbon Dioxide 31 mmol/L Normal 21-32 Anion Gap 4 mEq/L Low 8-16 Calcium 9.0 mg/dL Normal 8.5-10.1 Total Protein 7.4 g/dL Normal 6.4-8.2 Albumin 3.2 g/dL Low 3.4-5.0 Globulin 4.2 g/dL Normal 1.9-4.3 Alb/Glob 0.8 ratio Bilirubin,Total 0.3 mg/dL Normal 0.2-1.0 Sgot/Ast 25 U/L Normal 15-37 SGPT/Alt 38 U/L Normal 12-78 Alkaline Phosphatase 92 U/L Normal 45-117 Laboratory test 10/04/2018 [facility] Troponin-I < 0.015 16 finding (315)- - ng/mL Lipid 09/27/2018 [facility] Cholesterol 209 mg/dL High <200 17, 18 (315)- - Triglycerides 190 mg/dL High <150 19 HDL Cholesterol 33 mg/dL Low >40 20 LDL-Cholesterol 138 mg/dL < 100 21 Comprehensive Met 09/27/2018 [facility] Glucose 110 mg/ dL High 74-106 Panel-[facility] (315)- - BUN 20 mg/dL High 7-18 Creatinine 1.4 mg/dL High 0.6-1.3 Glom Filtration Rate, Estimate 54 mL/min >60 If >60 mL/min >60 22 BUN/Creat 14.2 ratio Sodium 144 mmol/L Normal 136-145 Potassium 4.2 mmol/L Normal 3.5-5.1 Chloride 109 mmol/L High 98-107 Carbon Dioxide 30 mmol/L Normal 21-32 Anion Gap 5 mEq/L Low 8-16 Calcium 9.7 mg/dL Normal 8.5-10.1 Total Protein 8.7 g/dL High 6.4-8.2 Albumin 4.0 g/dL Normal 3.4-5.0 Globulin 4.7 g/dL High 1.9-4.3 Alb/Glob 0.9 ratio Bilirubin,Total 0.3 mg/dL Normal 0.2-1.0 Sgot/Ast 23 U/L Normal 15-37 SGPT/Alt 36 U/L Normal 12-78 Alkaline Phosphatase 108 U/L Normal 45-117 Laboratory test 09/27/2018 [facility] Osmolality,Serum 314 mOsm/kg High 275-295 23 finding (315)- - Valproic Acid 48.2 ug/mL Low 50.0-100.0 24 Amaya 0.49 mmol/L Low 0.60-1.20 25 Thyroid Stim Hormone 4.27 uIU/mL High 0.30-4.20 26 Ammonia < 10 umol/L Low 11-32 27 Prolactin 72.2 ng/mL High 2.5-17.4 1 anytime 2 Prolactin Female Normal Values: Pre-menopausal: 3.3-26.7 ng/mL Post-menopausal:2.7-19.6 ng/mL 3 ASPIRATION PNA 4 Note: Persistent reduction for 3 months or more in an eGFR <60 mL/min/1.73 m2 defines CKD. Patients with eGFR values >/=60 mL/min/1.73 m2 may also have CKD if evidence of persistent proteinuria is present. The original MDRD equation for estimated GFR is not valid for patients less than 18 years of age. Additional information may be found at www.kdoqi.org. 5 Please Note: A POSITIVE result for influenza [...] influenza A and B molecular assay. Method: The E[employer] Project Chromatographic immunoassay 6 NO GROWTH: FINAL REPORT 7 NO GROWTH: FINAL REPORT 8 FEVER 9 Specimen slightly Hemolyzed, interpret with caution 10 Note: Persistent reduction for 3 months or more in an eGFR <60 mL/min/1.73 m2 defines CKD. Patients with eGFR values >/=60 mL/min/1.73 m2 may also have CKD if evidence of persistent proteinuria is present. The original MDRD equation for estimated GFR is not valid for patients less than 18 years of age. Additional information may be found at www.kdoqi.org. 11 ASPIRATION PNA 12 NO GROWTH: FINAL REPORT 13 NO GROWTH: FINAL REPORT 14 LOW 02 SAT 15 Note: Persistent reduction for 3 months or more in an eGFR <60 mL/min/1.73 m2 defines CKD. Patients with eGFR values >/=60 mL/min/1.73 m2 may also have CKD if evidence of persistent proteinuria is present. The original MDRD equation for estimated GFR is not valid for patients less than 18 years of age. Additional information may be found at www.kdoqi.org. 16 0.0 - 0.045 ng/mL: Normal 0.046 - 0.5 ng/mL: Suggestive 0.6 - 1.5 ng/mL: Consistent 17 Z13.220 F84.0 G47.8 Z79.899 18 Reference Guidelines*: Desirable: ........... < 200 mg/dL Borderline High: ..... 200-239 mg/dL High: ................ >= 240 mg/dL * The National Cholesterol Education Program (NCEP) 19 Reference Guidelines*: Normal: ............. < 150 mg/dL Borderline High: .... 150-199 mg/dL High: ............... 200-499 mg/dL Very High: .......... > 500 mg/dL * Source: National Cholesterol Education Program (NCEP) 20 Reference Guidelines*: Low HDL: ..... < 40 mg/dL Normal: ..... 40-60 mg/dL Desirable: ... > 60 mg/dL *The National Cholesterol Education Program(NCEP) 21 Reference Guidelines*: Optimal:........... <100 mg/dL Near Optimal....... 100-129 mg/dL Borderline High.... 130-159 mg/dL High............... 160-189 mg/dL Very High.......... >=190 mg/dL * Source: National Cholesterol Education Program (NCEP) 22 Note: Persistent reduction for 3 months or more in an eGFR <60 mL/min/1.73 m2 defines CKD. Patients with eGFR values >/=60 mL/min/1.73 m2 may also have CKD if evidence of persistent proteinuria is present. The original MDRD equation for estimated GFR is not valid for patients less than 18 years of age. Additional information may be found at www.kdoqi.org. 23 FAX TO NEELIMA MARITZA [phone] 24 FAX TO NEELIMA MARITZA [phone] 25 FAX TO NEELIMA MARITZA [phone] 26 FAX TO NEELIMA MARITZA [phone] 27 FAX TO NEELIMA MARITZA [phone] Procedures Date Code Description Status 11/09/2018 47189 Measure Blood Oxygen Level Multiple Determinations Completed 10/29/2018 85931 Measure Blood Oxygen Level Single Determination Completed 10/08/2018 37710 Measure Blood Oxygen Level Single Determination Completed 09/27/2018 53282 Electrocardiogram Complete Completed 05/26/2017 [id number] Bone Mineral Density Test Completed Medical Devices Description No Information Available Encounters Type Date Location Provider Dx Diagnosis Office Visit 01/26/2019 [facility] Latonya Lnua, M25.572 Pain in LEFT ankle 10:30a MD and joints of LEFT foot Z68.26 Body mass index (BMI) 26.0-26.9, adult Office Visit 12/15/2018 3:00p [facility] Latonya Luna MD J69.0 Pneumonitis due to inhalation of food and vomit E22.1 Hyperprolactinemia Z68.26 Body mass index (BMI) 26.0-26.9, adult Office Visit 11/25/2018 9:30a [facility] Latonya Luna MD R04.0 Epistaxis J30.9 Allergic rhinitis, unspecified N30.00 Acute cystitis without hematuria S80.212A Abrasion, LEFT knee, initial encounter Z68.26 Body mass index (BMI) 26.0-26.9, adult Office Visit 11/09/2018 4:15p [facility] Latonya Luna MD E22.1 Hyperprolactinemia F84.0 Autistic disorder F60.9 Personality disorder, unspecified J69.0 Pneumonitis due to inhalation of food and vomit Z68.27 Body mass index (BMI) 27.0-27.9, adult Office Visit 10/08/2018 3:15p [facility] Latonya Luna MD L20.82 Flexural eczema J44.0 Chr obstructive pulmon disease with (acute) lower resp infct E22.1 Hyperprolactinemia F84.0 Autistic disorder F60.9 Personality disorder, unspecified Z68.28 Body mass index (BMI) 28.0-28.9, adult Office Visit 09/27/2018 10:15a [facility] Latonya Luna MD L20.82 Flexural eczema L20.9 Atopic dermatitis, unspecified F60.9 Personality disorder, unspecified K59.00 Constipation, unspecified E87.0 Hyperosmolality and hypernatremia G47.8 Other sleep disorders F84.0 Autistic disorder Z13.220 Encounter for screening for lipoid disorders Z68.27 Body mass index (BMI) 27.0-27.9, adult Assessments Date Code Description Provider 03/16/2019 S09.90xA Unspecified injury of head, initial Latonya Luna MD encounter 03/16/2019 S00.01xA Abrasion of scalp, initial encounter Latonya Luna MD 03/16/2019 L20.82 Flexural eczema Latonya Luna MD 03/16/2019 F84.0 Autistic disorder Latonya Luna MD 03/16/2019 F79 Unspecified intellectual disabilities Latonya Luna MD 03/16/2019 Z68.27 Body mass index (BMI) 27.0-27.9, adult Latonya Luna MD 01/26/2019 M25.572 Pain in LEFT ankle and joints of LEFT foot Latonya Luna MD 01/26/2019 Z68.26 Body mass index (BMI) 26.0-26.9, adult Latonya Luna MD 12/15/2018 J69.0 Pneumonitis due to inhalation of food and Latonya Luna MD vomit 12/15/2018 E22.1 Hyperprolactinemia Latonya Luna MD 12/15/2018 Z68.26 Body mass index (BMI) 26.0-26.9, adult Latonya Luna MD 11/25/2018 R04.0 Epistaxis Latonya Luna MD 11/25/2018 J30.9 Allergic rhinitis, unspecified Latonya Luna MD 11/25/2018 N30.00 Acute cystitis without hematuria Latonya Luna MD 11/25/2018 S80.212A Abrasion, LEFT knee, initial encounter Latonya Luna MD 11/25/2018 Z68.26 Body mass index (BMI) 26.0-26.9, adult Latonya Luna MD 11/10/2018 E22.1 Hyperprolactinemia Latonya Luna MD 11/10/2018 E22.1 Hyperprolactinemia Schedule, Laboratory 11/10/2018 E22.1 Hyperprolactinemia [facility] 11/09/2018 E22.1 Hyperprolactinemia Latonya Luna MD 11/09/2018 F84.0 Autistic disorder Latonya Luna MD 11/09/2018 F60.9 Personality disorder, unspecified Latonya Luna MD 11/09/2018 J69.0 Pneumonitis due to inhalation of food and Latonya Luna MD vomit 11/09/2018 Z68.27 Body mass index (BMI) 27.0-27.9, adult Latonya Luna MD 10/29/2018 J69.0 Pneumonitis due to inhalation of food and Latonya Luna MD vomit 10/29/2018 F84.0 Autistic disorder Latonya Luna MD 10/29/2018 K59.00 Constipation, unspecified Latonya Luna MD 10/29/2018 F79 Unspecified intellectual disabilities Latonya Luna MD 10/29/2018 J44.9 Chronic obstructive pulmonary disease, Latonya Luna MD unspecified 10/29/2018 Z68.27 Body mass index (BMI) 27.0-27.9, adult Latonya Luna MD 10/08/2018 L20.82 Flexural eczema Latonya Luna MD 10/08/2018 J44.0 Chronic obstructive pulmonary disease with Latonya Luna MD acute lower respi 10/08/2018 E22.1 Hyperprolactinemia Latonya Luna MD 10/08/2018 F84.0 Autistic disorder Latonya Luna MD 10/08/2018 F60.9 Personality disorder, unspecified Latonya Luna MD 10/08/2018 Z68.28 Body mass index (BMI) 28.0-28.9, adult Latonya Luna MD 09/27/2018 L20.82 Flexural eczema Latonya Luna MD 09/27/2018 L20.9 Atopic dermatitis, unspecified Latonya Luna MD 09/27/2018 F60.9 Personality disorder, unspecified Latonya Luna MD 09/27/2018 K59.00 Constipation, unspecified Latonya Luna MD 09/27/2018 E87.0 Hyperosmolality and hypernatremia Latonya Luna MD 09/27/2018 G47.8 Other sleep disorders Latonya Luna MD 09/27/2018 F84.0 Autistic disorder Latonya Luna MD 09/27/2018 Z13.220 Encounter for screening for lipoid disorders Latonya Luna MD 09/27/2018 Z68.27 Body mass index (BMI) 27.0-27.9, adult Latonya Luna MD Plan of Treatment Future Appointment(s):03/29/2019 3:20 pm - Schedule, Laboratory at [facility]2018 11:00 am - Latonya Luna MD at [facility]03/16/2019 - Latonya Luna MDS09.90xA Unspecified injury of head, initial encounterComments:Pt with no symptoms, normal neuro exam, very attentive and not ill looking. Advised pt to monitor sxs and avoid further risk for injury ie no climbing/ladders, etc. Should pt begin to develop worsening sxs such as progressive worsening headaches , recurrent dizziness, nausea, coordination problems, vision changes or other concerns, needs reeval/ov/ER. Discussed how a slow bleed may develop, issue is a concern for up to 6 weeks post injury. Needs to avoid risk for further head injury for at least a week after the resolution of symptoms. call for concerns. may stop neuro checksFollow up:as planned ; please bring in copy of guardian fgywmiF31.01xA Abrasion of scalp, initial encounterComments:scalp abrasionscontinue observing until healed. if wounds develop redness, or worse pain, seek ktilecaipsP19.82 Flexural eczemaComments:flare up on posterior neckuse prn meds as directed.Follow up:Followup:.F84.0 Autistic [id number] Unspecified intellectual uwsmxlrcuoeqG25.27 Body mass index (BMI) 27.0-27.9, adultComments:recommend reduced calorie diet and healthy diet and regular exercise to help with weight loss Functional Status Description No Information Available Mental Status Description No Information Available Referrals Description No Information Available
--- OUTSIDE RECORDS SUMMARY | 2019-05-01 09:37 | XMS REPORT | Continuity of Care Document ---
:1955 External Reference #:[id number] Author Name Latonya Luna MD Address [address] [place] [address] Care Team Providers Name Role Phone Travis Chen - Psychiatry Care Team Information Fire Investigation Lieutenant [phone] Aliza Maritza Care Team Information Fire Investigation Lieutenant [phone] Dafne Ashford - Allergy & Care Team Information Fire Investigation Lieutenant [phone] Immunology Antonio Hernandez - Gastroenterology Care Team Information Fire Investigation Lieutenant [phone] Problems Active Problems Provider Date Constipation Jus [...] Autistic disorder Latonya Luna MD Onset: 03/29/2018 Intellectual disability Latonya Luna MD Onset: 10/29/2018 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 Chronic obstructive lung disease Latonya Luna MD Onset: 04/05/2019 Benign prostatic hypertrophy without outflow Latonya Luna MD Onset: obstruction Social History Type Date Description Comments Sex Unknown ETOH Use Denies alcohol use Tobacco Use Start: Unknown Patient has never smoked Recreational Drug Use Denies Drug Use Smoking Status Reviewed: 04/05/19 Patient has never smoked Allergies, Adverse Reactions, Alerts Description No Known Drug Allergies Medications Active Medications SIG Qnty Indications Ordering Provider Date Vanicream apply to whole 171gm L20.82 Latonya Luna, 10/18/2018 Cream body twice [...] mouth two times a MD Capsules day Fluocinonide apply to rash on 180units L20.9 Latonya Luna, 06/24/2017 0.05% extremities and MD Ointment trunk twice daily and as needed L20.82 Docqlace take 1 capsule 60caps K59.00 Latonya Luna MD 08/25/2016 100mg Capsules by mouth two times a day Bismuth 2tablespoon po Unknown as needed after each loose bm Chlorpromazine HCL 1 po bid F60.9 Slaven, Travis 100mg Tablets [place] Carbonate take 1 capsule F60.9 Unknown 150mg by mouth twice Capsules daily with water/food F84.0 Triamcinolone Acetonide to lower leg 45gm L20.82 Latonya Luna MD rash once daily 0.1% Cream Mupirocin Unknown 2% Ointment Cetirizine HCL 1 by mouth every 30units J30.9 Latonya Luna MD 10mg night at bedtime Chewtabs Vaseline apply daily to Unknown Gel Nostril Depakote ER take one tablets F60.9 Slaven, Travis 500mg Tablets by mouth tid ER 24HR F79 F84.0 Polyethylene Glycol dissolve 1 scoop in 1000gm Latonya Luna, 3350 8oz of water & Powder drink daily with dinner Triple Antibiotic to be placed on Unknown minor scratches as Ointment needed Tolnaftate between toes daily Unknown [place] Tussin 2 tsp q 6 hours prn Unknown cough without fever Ibuprofen 200 2 po q 4 hours as Unknown 200mg needed for pain up Tablets to 5 days Milk Of Magnesia give 15 milliliters K59.00 Unknown on day 3 and 4 if 1200mg/15ML no bm. Suspension Mylanta 1 tablespoon by 1Bottle Unknown mouth every 4 hours [phone]/5ML minor stomach Suspension upset. Kaopectate 2 tablespoons PO 1Bottle R19.7 Unknown 262mg/15ML after each loose Suspension stool. Tinactin spray between toes 150gm B35.3 Latonya Luna, 1% Aerosol daily MD [place] apply to calloused 1Tube L20.9 Latonya Luna, 5-10% Ointment areas every other MD day after bath L20.82 Olanzapine 15mg Tablets 1 PO qd 30Tabs F60.9 Unknown History Medications Amoxicillin/Clavulanate Every 12 Hours 10tabs J69.0 Unknown 10/27/2018 - Potassium 11/01/2018 875-125mg Tablets Immunizations CPT Code Status Date Vaccine Reaction Lot # [id number] Given 01/25/2019 Influenza Virus Vaccine,Quadrivalent,Split,Pr eserv Free, 0.5mL,[place] [address] Given 05/03/2018 Tdap (Adacel) Ages 7 And Above Only 70383 Given 03/16/2018 Influenza Virus Vaccine,Quadrivalent,Split,Pr eserv Free, 0.5mL,Im Q2037 Given 04/10/2017 Fluvirin Immunization Given at [facility],[address] [address] Given 03/27/2017 Pneumococcal 23 Immunization Im inj completed, Pt [id number] Adult Or Immunosuppressed tolerated well Patient Q2037 Given 03/22/2016 Fluvirin Immunization Given At [facility] [address] Given 03/18/2016 Prevnar 13 Pneumococal Im inj completed, Pt [id number] Conjugate Vaccine tolerated well 77209 Given 02/21/2013 Afluria Or Fluvirin Flu Vac Intramuscular 95413 Given 01/22/2012 Afluria Or Fluvirin Flu Vac Intramuscular 36956 Given 02/17/2011 Afluria Or Fluvirin Flu Vac Intramuscular 04465 Given 02/14/2010 Afluria Or Fluvirin Flu Vac Intramuscular 81153 Given 02/12/2009 Tdap (Adacel) Ages 7 And Above Only 12324 Given 03/09/2008 Afluria Or Fluvirin Flu Vac Intramuscular 10160 Given 03/17/2007 Afluria Or Fluvirin Flu Vac Intramuscular 53239 Given 04/06/2006 Afluria Or Fluvirin Flu Vac Intramuscular 60614 Given 04/03/2005 Afluria Or Fluvirin Flu Vac Intramuscular 26028 Given 04/03/2005 Afluria Or Fluvirin Flu Vac Intramuscular 52336 Given 03/28/2003 Afluria Or Fluvirin Flu Vac Intramuscular 19639 Refused 04/05/2019 Shingrix (Shingles) Zoster AWARE CAN GET AT PHARMACY Vaccine HZV, Recombinant, Subunit, Adj [id number] Refused 03/29/2018 Shingrix (Shingles) Zoster can get at pharmacy Vaccine HZV, Recombinant, Subunit, Adj Vital Signs Date Vital Result Comment 04/27/2019 4:20pm Weight 180.00 lb with boots. Respiratory Rate 18 /min Height 67 inches 5'7" BMI (Body Mass Index) 28.2 kg/m2 04/05/2019 11:09am Weight 178.00 lb Heart Rate 78 /min BP Systolic 140 mmHg BP Diastolic 76 mmHg Respiratory Rate 18 /min Height 67 inches 5'7" BMI (Body Mass Index) 27.9 kg/m2 Results Test Acquired Date Facility Test Result H/L Range Note Basic Metabolic 04/25/2019 [facility] Sodium 143 mmol/L Normal 135-145 Panel Potassium 4.6 mmol/L Normal 3.5-5.0 Chloride 105 mmol/L Normal 101-111 Co2 Carbon Dioxide 32 mmol/L Normal 22-32 Anion Gap 6 mmol/L Normal 2-11 Glucose 113 mg/dL High 70-100 Blood Urea Nitrogen 20 mg/dL Normal 6-24 Creatinine 1.26 mg/dL High 0.67-1.17 BUN/Creatinine Ratio 15.9 Normal 8-20 Calcium 9.7 mg/dL Normal 8.6-10.3 Egfr Non- 57.6 >60 Egfr 69.7 >60 1 CBS W/Automated 04/18/2019 [facility] White Blood 8.2 K/ uL Normal 3.4-10.5 2 Diff (315)- - Count Red Blood Count 4.61 M/uL Normal 4.20-5.80 Hemoglobin 15.0 gm/dL Normal 12.8-17.0 Hematocrit 44.8 % Normal 38.0-48.0 Mean Cell Volume 97.2 fl High 80.0-96.0 Mean Corpuscular HGB 32.5 pg Normal 27.0-33.0 Mean Corpuscular HGB Conc 33.5 g/dL Normal 31.7-36.0 Platelet Count 180 K/uL Normal 155-360 Red Cell Distri Width SD 45.3 fl Normal 36-51 Red Cell Distri Width %CV 12.7 % Normal 11.6-15.8 Mean Platelet Volume 10.1 fl Normal 6.6-10.6 Neut% 83.8 % High 33.0-73.0 Lymph % 5.7 % Low 20.0-42.0 [place] % 7.1 % Normal 0.0-10.0 Eo% 2.7 % Normal 0.0-6.6 Bas% 0.1 % Normal 0.0-1.1 Immature Grans 0.6 % Normal 0.0-5.0 NRBC % 0.0 /100WBC < 10/ 100 WBC Neut# 6.86 K/uL Normal 1.8-7.0 Lymph # 0.47 K/uL Low 1.0-4.0 [place] # 0.58 K/uL Normal 0.0-0.8 Eos # 0.22 K/uL Normal 0.0-0.5 Baso # 0.01 K/uL Normal 0.0-0.1 Immature Grans Absolute 0.05 K/uL NRBC # 0.00 K/uL Comprehensive Metabolic 04/18/2019 [facility] Glucose 148 mg/dL High 74-106 Panel (315)- - BUN 22 mg/dL High 7-18 Creatinine 1.6 mg/dL High 0.6-1.3 Glom Filtration Rate, Estimate 46 mL/min >60 If 56 mL/min >60 3 BUN/Creat 13.7 ratio Sodium 140 mmol/L Normal 136-145 Potassium 4.3 mmol/L Normal 3.5-5.1 Chloride 109 mmol/L High 98-107 Carbon Dioxide 28 mmol/L Normal 21-32 Anion Gap 3 mEq/L Low 8-16 Calcium 8.9 mg/dL Normal 8.5-10.1 Total Protein 7.7 g/dL Normal 6.4-8.2 Albumin 3.3 g/dL Low 3.4-5.0 Globulin 4.4 g/dL High 1.9-4.3 Alb/Glob 0.8 ratio Bilirubin,Total 0.4 mg/dL Normal 0.2-1.0 Sgot/Ast 14 U/L Low 15-37 4 SGPT/Alt 26 U/L Normal 12-78 Alkaline Phosphatase 88 U/L Normal 45-117 Laboratory test 04/18/2019 [facility] Troponin-I < 0.015 5 finding (315)- - ng/mL Laboratory test 03/29/2019 [facility] Prolactin 67.0 ng/ml High 2.6-13. 6, 7 finding 1 CBC with Auto 03/29/2019 [facility] RBC 4.47 M/uL Low 4.60-6. Diff-fcmg 10 Hemoglobin 14.6 gm/dL 13.5-18.0 Hematocrit 42.6 % 41.0-53.0 MCV 95.4 fL 80.0-97.0 MCH 32.6 pg High 27.0-32.0 MCHC 34.2 g/dL 32.0-36.0 RDW 13.2 % 11.5-14.5 PLT Count 187 K/ul 140-400 MPV 9.3 FL 7.1-10.7 Neutrophil 54.1 % 35.0-75.0 Lymphocyte 27.0 % 16.0-52.0 Monocyte 12.0 % High 2.0-10.0 Eosinophil 6.7 % High 0.0-5.0 Basophil 0.2 % 0.0-4.0 Abs Neutrophils 3.4 K/uL 2.1-8.0 Abs Lymphocytes 1.7 K/uL 0.8-5.5 Abs Monocytes 0.7 K/uL 0.1-1.0 Abs Eosinophils 0.4 K/uL 0.0-0.5 Abs Basophils 0.0 K/uL 0.0-0.3 WBC 6.3 K/uL 4.1-11.0 8 Comprehensive Met Panel-[facility] 03/29/2019 [place] Sodium 141 mmol/L 135- 146 9 Potassium 4.1 mmol/L 3.5-5.2 Chloride# 103 mmol/L 97-110 10 Carbon Dioxide 31 mmol/L 24-34 Calcium 9.7 mg/dL 8.5-10.5 11 Glucose 103 mg/dL 70-105 BUN 19 mg/dL 6-26 Creatinine 1.2 mg/dL 0.5-1.4 Total Protein 6.8 g/dL 6.0-8.0 Albumin 4.1 g/dL 3.6-4.9 Globulin 2.7 g/dL 2.0-3.5 A/G Ratio 1.5 Ratio 1.0-2.2 Total Bilirubin 0.3 mg/dL 0.1-1.3 Alkaline Phosphatase 78 U/L 24-140 Alt 20 U/L 3-42 Ast 17 U/L 8-42 Anion Gap 7 mmol/L 5-15 12 Female Egfr 48 Low >60 13 Male Egfr 64 >60 14 Laboratory test finding 03/29/2019 [facility] TSH 2.60 uIU/mL 0.35-4.94 Hemoglobin A1c 03/29/2019 [facility] Hemoglobin A1c 5.7 % 4.1-5.9 Estimated Average Glucose Calc 117 mg/dL 71-140 Laboratory test 03/29/2019 [facility] [place] 0.34 mmol/L Low (0.60-1.50) 15 finding Laboratory test 11/10/2018 [facility] Prolactin 59.1 ng/ml High 2.6-13.1 16 , 17 finding 1 Because ethnic data is not always readily available, this report includes an eGFR for both -Americans and non- Americans. The National Kidney Disease Education Program (NKDEP) does not endorse the use of the MDRD equation for patients that are not between the ages of 18 and 70, are , have extremes of body size, muscle mass, or nutritional status, or are non- or non-. According to the National Kidney Foundation, irrespective of diagnosis, the stage of the disease is based on the level of kidney function: Stage Description GFR(mL/min/1.73 m(2)) 1 Kidney damage with normal or decreased GFR 90 2 Kidney damage with mild decrease in GFR 60-89 3 Moderate decrease in GFR 30-59 4 Severe decrease in GFR 15-29 5 Kidney failure <15 (or dialysis) 2 TEMPS, ON HONEY LIQUIDS, POSS PNUEMONIA 3 Note: Persistent reduction for 3 months or more in an eGFR <60 mL/min/1.73 m2 defines CKD. Patients with eGFR values >/=60 mL/min/1.73 m2 may also have CKD if evidence of persistent proteinuria is present. The original MDRD equation for estimated GFR is not valid for patients less than 18 years of age. Additional information may be found at www.kdoqi.org. 4 Values below the stated reference ranges of AST and ALT can be seen in normal populations. Clinical correlation is suggested. 5 0.0 - 0.045 ng/mL: Normal 0.046 - 0.5 ng/mL: Suggestive 0.6 - 1.5 ng/mL: Consistent 6 before visit 03/2019 7 Prolactin Female Normal Values: Pre-menopausal: 3.3-26.7 ng/mL Post-menopausal:2.7-19.6 ng/mL 8 Result amended from (Not Reported) (03/31/2019 1:09 PM) to (6.3) (03/31/2019 1:09 PM) by [facility]. 9 Updated reference range on new analyzer 10 Updated reference range on new analyzer 11 Updated reference range 09-15-2018 12 Updated Reference Range 13 Concerning GFR Guidelines for Americans: Normal function or mild renal disease, if clinically at risk: >/= 60 mL/min Moderately decreased: 30-59 Severely decreased: 15-29 Renal failure: <15 There is reduced accuracy above 60ml/min/1.73 m squared, but the numeric value may be clinically useful in the near 60 range 14 Concerning GFR Guidelines: Normal function or mild renal disease, if clinically at risk: >/= 60 mL/min Moderately decreased: 30-59 Severely decreased: 15-29 Renal failure: <15 There is reduced accuracy above 60ml/min/1.73 m squared, but the numeric value may be clinically useful in the near 60 range Glomerular Filtration Rate (GFR) is estimated based on the CKD-EPI equation, which assumes a steady state for [...] drugs that are excreted by the kidneys. 15 Unless otherwise specified, testing performed by [facility] [address] [place] [id number] 16 anytime 17 Prolactin Female Normal Values: Pre-menopausal: 3.3-26.7 ng/mL Post-menopausal:2.7-19.6 ng/mL Procedures Date Code Description Status 11/09/2018 98934 Measure Blood Oxygen Level Multiple Determinations Completed 10/29/2018 04513 Measure Blood Oxygen Level Single Determination Completed 05/26/2017 [id number] Bone Mineral Density Test Completed Medical Devices Description No Information Available Encounters Type Date Location Provider Dx Diagnosis Office Visit 04/05/2019 [facility] Latonya Luna MD Z00.01 Encounter for 11:00a general adult medical exam w abnormal findings L20.82 Flexural eczema L20.9 Atopic dermatitis, unspecified F84.0 Autistic disorder F60.9 Personality disorder, unspecified K59.00 Constipation, unspecified R55 Syncope and collapse F79 Unspecified intellectual disabilities Z86.61 Personal history of infections of the central nervous system Z12.5 Encounter for screening for malignant neoplasm of prostate Z12.11 Encounter for screening for malignant neoplasm of colon H91.93 Unspecified hearing loss, bilateral E66.3 Overweight E22.1 Hyperprolactinemia N40.0 Benign prostatic hyperplasia without lower urinry tract symp Z68.27 Body mass index (BMI) 27.0-27.9, adult Office Visit 03/16/2019 4:15p [facility] Latonya Luna MD S09.90xA Unspecified injury of head, initial encounter S00.01xA Abrasion of scalp, initial encounter L20.82 Flexural eczema F84.0 Autistic disorder F79 Unspecified intellectual disabilities S09.90xD Unspecified injury of head, subsequent encounter S00.01xD Abrasion of scalp, subsequent encounter Z68.27 Body mass index (BMI) 27.0-27.9, adult Office Visit 01/26/2019 10:30a [facility] Ltaonya Luna MD M25.572 Pain in LEFT ankle and joints of LEFT foot Z68.26 Body mass index (BMI) 26.0-26.9, adult Office Visit 12/15/2018 3:00p [facility] Latonya Luna MD J69.0 Pneumonitis due to inhalation of food and vomit E22.1 Hyperprolactinemia Z68.26 Body mass index (BMI) 26.0-26.9, adult Office Visit 11/25/2018 9:30a [facility] Latonya Luna MD R04.0 Epistaxis J30.9 Allergic rhinitis, unspecified N30.00 Acute cystitis without hematuria S80.212A Abrasion, LEFT knee, initial encounter Z68.26 Body mass index (BMI) 26.0-26.9, adult Office Visit 11/09/2018 4:15p [facility] Latonya Luna MD E22.1 Hyperprolactinemia F84.0 Autistic disorder F60.9 Personality disorder, unspecified J69.0 Pneumonitis due to inhalation of food and vomit Z68.27 Body mass index (BMI) 27.0-27.9, adult Assessments Date Code Description Provider 04/27/2019 E86.0 Dehydration Latonya Luna MD 04/27/2019 R94.4 Abnormal results of kidney function studies Latonya Luna MD 04/27/2019 K59.00 Constipation, unspecified Latonya Luna MD 04/27/2019 L20.9 Atopic dermatitis, unspecified Latonya Luna MD 04/27/2019 R55 Syncope and collapse Latonya Luna MD 04/27/2019 F84.0 Autistic disorder Latonya Luna MD 04/27/2019 F79 Unspecified intellectual disabilities Latonya Luna MD 04/27/2019 Z68.28 Body mass index (BMI) 28.0-28.9, adult Latonya Luna MD 04/05/2019 Z00.01 Encounter for general adult medical Latonya Luna MD examination with abnorma 04/05/2019 L20.82 Flexural eczema Latonya Luna MD 04/05/2019 L20.9 Atopic dermatitis, unspecified Latonya Luna MD 04/05/2019 F84.0 Autistic disorder Latonya Luna MD 04/05/2019 F60.9 Personality disorder, unspecified Latonya Luna MD 04/05/2019 K59.00 Constipation, unspecified Latonya Luna MD 04/05/2019 R55 Syncope and collapse Latonya Luna MD 04/05/2019 F79 Unspecified intellectual disabilities Latonya Luna MD 04/05/2019 Z86.61 Personal history of infections of the Latonya Luna MD central nervous system 04/05/2019 Z12.5 Encounter for screening for malignant Latonya Luna MD neoplasm of prostate 04/05/2019 Z12.11 Encounter for screening for malignant Latonya Luna MD neoplasm of colon 04/05/2019 H91.93 Unspecified hearing loss, bilateral Latonya Luna MD 04/05/2019 E66.3 Overweight Latonya Luna MD 04/05/2019 E22.1 Hyperprolactinemia Latonya Luna MD 04/05/2019 N40.0 Benign prostatic hyperplasia without lower Latonya Luna MD urinary tract symptoms 04/05/2019 Z68.27 Body mass index (BMI) 27.0-27.9, adult Latonya Luna MD 03/29/2019 F84.0 Autistic disorder Schedule, Laboratory 03/29/2019 Z79.899 Other residential (current) drug therapy Schedule, Laboratory 03/29/2019 E22.1 Hyperprolactinemia Latonya Luna MD 03/29/2019 E22.1 Hyperprolactinemia Schedule, Laboratory 03/29/2019 R73.09 Other abnormal glucose Latonya Luna MD 03/29/2019 R73.09 Other abnormal glucose Schedule, Laboratory 03/29/2019 E22.1 Hyperprolactinemia [facility] 03/29/2019 R73.09 Other abnormal glucose [facility] 03/16/2019 S09.90xA Unspecified injury of head, initial Latonya Luna MD encounter 03/16/2019 S00.01xA Abrasion of scalp, initial encounter Latonya Luna MD 03/16/2019 L20.82 Flexural eczema Latonya Luna MD 03/16/2019 F84.0 Autistic disorder Latonya Luna MD 03/16/2019 F79 Unspecified intellectual disabilities Latonya Luna MD 03/16/2019 S09.90xD Unspecified injury of head, subsequent Latonya Luna MD encounter 03/16/2019 S00.01xD Abrasion of scalp, subsequent encounter Latonya Luna MD 03/16/2019 Z68.27 Body mass [...] E22.1 Hyperprolactinemia Schedule, Laboratory 11/10/2018 E22.1 Hyperprolactinemia [facility] 11/09/2018 E22.1 Hyperprolactinemia Latonya Luna [...] Latonya Luna MD Plan of Treatment Future Appointment(s):05/24/2019 3:30 pm - Schedule, Laboratory at [facility]2019 4:00 pm - Latonya Luna MD at [facility]09/28/2019 8:45 am - Schedule, Laboratory at [facility]10/04/2019 9:15 am - Latonya Luna MD at [facility]04/27/2019 - Latonya Luna MDE86.0 DehydrationNew Labs:Basic ([facility]), Scheduled: Comments:chronic dehydrationcontinue 90 oz daily continue to document the fliuds and track to make sure he hits targets of 90 oz per daypatient may not be able to communicate thirst so staff needs to make sure pt hits targets monitor to see if constipation, yelling/irritability, kidney function, dry skin all improve with improved hydration recheck labs in 1 mo, if improved and a good pattern is set we can stop the documentation at that pointFollow up:next visit in 1 mo oc15 fu dehydration, nonfasting labs 5 days [id number] Abnormal results of kidney function studiesNew Labs:Basic ([facility]), Scheduled: Comments:kidney labs remain abnormalrecheck in 1 moK59.00 Constipation, unspecifiedComments:may improve with improved hydration [id number] Atopic dermatitis, unspecifiedFollow up:Followup:.R55 Syncope and collapseNew Labs: Basic ([facility]), Scheduled: 05/24/19Comments:no further passing out [id number] Autistic disorderComments:pt with limited communication [id number] Unspecified intellectual disabilitiesComments:pt with limited abilities and may not be able to adequately communicate thirsttrial documenting fluids, targeting 90 oz per day for the next 1 mo and recheck labs at that point and see how he doesZ68.28 Body mass index (BMI) 28.0-28.9, adultComments:healthy diet, regular exercise, reduced calories to help towards weight loss recommended Functional Status Description No Information Available Mental Status Description No Information Available Referrals Description No Information Available
--- OUTSIDE RECORDS SUMMARY | 2019-05-01 09:37 | XMS REPORT | Continuity of Care Document ---
:1955 External Reference #:[id number] Author Name Latonya Luna MD Address [address] [place] [address] Care Team Providers Name Role Phone Travis Chen - Psychiatry Care Team Information Lead Atg Developer [phone] Aliza Maritza Care Team Information Lead Atg Developer [phone] Dafne Ashford - Allergy & Care Team Information Lead Atg Developer [phone] Immunology Antonio Hernandez - Gastroenterology Care Team Information Lead Atg Developer Problems Active Problems Provider Date Constipation Jus [...] po bid F60.9 Slaven, Travis 100mg Tablets Cankton Carbonate take 1 capsule F60.9 Unknown 150mg [...] F84.0 Polyethylene Glycol dissolve 1 scoop in Unknown 3350 8oz of water & drink Powder daily With Dinner Triple Antibiotic to be placed on minor Unknown scratches as needed Ointment Tolnaftate between toes daily Unknown [place] Tussin 2 tsp q 6 hours prn Unknown cough without fever Ibuprofen 200 2 po q 4 hours as Unknown 200mg needed for pain up to Tablets 5 days Milk Of Magnesia give 15 milliliters K59.00 Unknown on day 3 and 4 if no 1200mg/15ML Suspension bm. Mylanta 1 tablespoon by mouth 1Bottle Unknown [phone]/5ML every 4 hours minor Suspension stomach upset. Kaopectate 2 tablespoons PO 1Bottle R19.7 Unknown 262mg/15ML after each loose Suspension stool. Tinactin spray between toes 150gm B35.3 Rhodes, 1% Aerosol daily MD Laotnya Kerasal apply to calloused 1Tube L20.9 Rhodes, 5-10% Ointment areas every other day MD Latonya after bath L20.82 Olanzapine 15mg Tablets 1 PO qd 30Tabs F60.9 Unknown History Medications Amoxicillin/Clavulanate Every 12 10tabs J69.0 Unknown 10/27/2018 - Potassium Hours 11/01/2018 875-125mg Tablets Vanicream apply to 3units L20.82 Rhodes, 10/18/2018 - Bar whole body MD Latonya 10/18/2018 twice daily, discon't 10/18/2018 Prednisone 2 po daily 6tabs J44.0 Unknown 10/04/2018 - 20mg Tablets for 3 days 10/07/2018 Immunizations CPT Code Status Date Vaccine Reaction Lot # [id number] Given 01/25/2019 Influenza Virus Vaccine,Quadrivalent,Split,Pr eserv Free, 0.5mL,[place] [address] Given 05/03/2018 Tdap (Adacel) Ages 7 And Above Only 10503 Given 03/16/2018 Influenza Virus Vaccine,Quadrivalent,Split,Pr eserv Free, 0.5mL,Im Q2037 Given 04/10/2017 Fluvirin Immunization Given at [facility],[address] [address] Given 03/27/2017 Pneumococcal 23 Immunization Im inj completed, Pt [id number] Adult Or Immunosuppressed tolerated well Patient Q2037 Given 03/22/2016 Fluvirin Immunization Given At [facility] [address] Given 03/18/2016 Prevnar 13 Pneumococal Im inj completed, Pt [id number] Conjugate Vaccine tolerated well 93019 Given 02/21/2013 Afluria Or Fluvirin Flu Vac Intramuscular 02706 Given 01/22/2012 Afluria Or Fluvirin Flu Vac Intramuscular 82009 Given 02/17/2011 Afluria Or Fluvirin Flu Vac Intramuscular 24587 Given 02/14/2010 Afluria Or Fluvirin Flu Vac Intramuscular 69237 Given 02/12/2009 Tdap (Adacel) Ages 7 And Above Only 37212 Given 03/09/2008 Afluria Or Fluvirin Flu Vac Intramuscular 46054 Given 03/17/2007 Afluria Or Fluvirin Flu Vac Intramuscular 67429 Given 04/06/2006 Afluria Or Fluvirin Flu Vac Intramuscular 36730 Given 04/03/2005 Afluria Or Fluvirin Flu Vac Intramuscular 79952 Given 04/03/2005 Afluria Or Fluvirin Flu Vac Intramuscular 19139 Given 03/28/2003 Afluria Or Fluvirin Flu Vac Intramuscular 06350 Refused 04/05/2019 Shingrix (Shingles) Zoster AWARE CAN GET AT PHARMACY Vaccine HZV, Recombinant, Subunit, Adj 11149 Refused 03/29/2018 Shingrix (Shingles) Zoster can get at pharmacy Vaccine HZV, Recombinant, Subunit, Adj Vital Signs Date Vital Result Comment 04/05/2019 11:09am Weight 178.00 lb Heart Rate 78 /min BP Systolic 140 mmHg BP Diastolic 76 mmHg Respiratory Rate 18 /min Height 67 inches 5'7" BMI (Body Mass Index) 27.9 kg/m2 03/16/2019 4:22pm Weight 174.00 lb Heart Rate 88 /min BP Systolic 130 mmHg BP Diastolic 76 mmHg Respiratory Rate 18 /min Height 67 inches 5'7" BMI (Body Mass Index) 27.2 kg/m2 Results Test Acquired Date Facility Test Result H/L Range Note Laboratory test 03/29/2019 [facility] Prolactin 67.0 ng/ml High 2.6-13.1 1 , 2 finding CBC with Auto 03/29/2019 [facility] RBC 4.47 M/uL Low 4.60-6.10 Diff-fcmg Hemoglobin 14.6 gm/dL 13.5-18.0 Hematocrit 42.6 % [...] 0.0 K/uL 0.0-0.3 WBC 6.3 K/uL 4.1-11.0 3 Comprehensive Met Panel-[facility] 03/29/2019 [facility] Sodium 141 mmol/L 135- 146 4 Potassium 4.1 mmol/L 3.5-5.2 Chloride# 103 mmol/L 97-110 5 Carbon Dioxide 31 mmol/L 24-34 Calcium 9.7 mg/dL 8.5-10.5 6 Glucose 103 mg/dL 70-105 BUN 19 mg/dL 6-26 Creatinine 1.2 mg/dL 0.5-1.4 Total Protein 6.8 g/dL 6.0-8.0 Albumin 4.1 g/dL 3.6-4.9 Globulin 2.7 g/dL 2.0-3.5 A/G Ratio 1.5 Ratio 1.0-2.2 Total Bilirubin 0.3 mg/dL 0.1-1.3 Alkaline Phosphatase 78 U/L 24-140 Alt 20 U/L 3-42 Ast 17 U/L 8-42 Anion Gap 7 mmol/L 5-15 7 Female Egfr 48 Low >60 8 Male Egfr 64 >60 9 Laboratory test finding 03/29/2019 [facility] TSH 2.60 uIU/mL 0.35-4.94 Hemoglobin A1c 03/29/2019 [facility] Hemoglobin A1c 5.7 % 4.1-5.9 Estimated Average Glucose Calc 117 mg/dL 71-140 Laboratory 03/29/2019 [facility] Cankton 0.34 mmol/L Low (0.60-1.50) 10 test finding Laboratory 11/10/2018 [facility] Prolactin 59.1 ng/ml High 2.6-13.1 11, test finding 12 Influenza A/B 10/25/2018 [facility] Influenza A Negative (Negative) 13 Antigen (315)- - Antigen Influenza B Antigen Negative (Negative) 14 CBS W/Automated 10/25/2018 [facility] White Blood 10.7 K/ uL [...] 33.0-73.0 Lymph % 13.3 % Low 20.0-42.0 [facility] % 9.0 % Normal 0.0-10.0 Eo% 2.1 % Normal 0.0-6.6 Bas% 0.1 % Normal 0.0-1.1 Immature Grans 0.5 % Normal 0.0-5.0 NRBC % 0.0 /100WBC < 10/ 100 WBC Neut# 8.03 K/uL High 1.8-7.0 Lymph # 1.42 K/uL Normal 1.0-4.0 [facility] # 0.96 K/uL High 0.0-0.8 Eos # 0.23 K/uL Normal 0.0-0.5 Baso # 0.01 K/uL Normal 0.0-0.1 Immature Grans Absolute 0.05 K/uL NRBC # 0.00 K/uL Basic Metabolic Panel 10/25/2018 [facility] Glucose 108 mg/dL High 74-106 (315)- - BUN 16 mg/dL Normal 7-18 Creatinine 1.3 mg/dL Normal 0.6-1.3 Glom Filtration Rate, Estimate 59 mL/min >60 If >60 mL/min >60 15 BUN/Creat 12.3 ratio Sodium 145 mmol/L Normal 136-145 Potassium 4.0 mmol/L Normal 3.5-5.1 Chloride 113 mmol/L High 98-107 Carbon Dioxide 28 mmol/L Normal 21-32 Anion Gap 4 mEq/L Low 8-16 Calcium 8.3 mg/dL Low 8.5-10.1 Blood Culture 10/24/2018 [facility] Blood Culture NO GROWTH: FINAL 16 (315)- - Aerobic <SEE NOTE> Blood Culture Anaerobic NO GROWTH: FINAL <SEE NOTE> 17 Comprehensive 10/24/2018 [facility] Glucose 123 mg/dL High 74-106 18 Metabolic Panel (315)- - BUN 17 mg/dL Normal 7-18 Creatinine 1.4 mg/dL High 0.6-1.3 Glom Filtration Rate, Estimate 54 mL/min >60 If >60 mL/min >60 19 BUN/Creat 12.1 ratio Sodium 144 mmol/L Normal [...] 12-78 Alkaline Phosphatase 97 U/L Normal 45-117 CBS W/Automated 10/24/2018 [facility] White Blood 11.3 K/ uL [...] 33.0-73.0 Lymph % 5.4 % Low 20.0-42.0 [facility] % 8.6 % Normal 0.0-10.0 Eo% 0.7 % Normal 0.0-6.6 Bas% 0.2 % Normal 0.0-1.1 Immature Grans 0.6 % Normal 0.0-5.0 NRBC % 0.0 /100WBC < 10/ 100 WBC Neut# 9.55 K/uL High 1.8-7.0 Lymph # 0.61 K/uL Low 1.0-4.0 [facility] # 0.97 K/uL High 0.0-0.8 Eos # 0.08 K/uL Normal 0.0-0.5 Baso # 0.02 K/uL Normal 0.0-0.1 Immature Grans Absolute 0.07 K/uL NRBC # 0.00 K/uL Lactic Acid 10/24/2018 [facility] Lactic Acid 1.7 mmol/L Normal 0.4-1.9 20 (315)- - Lab Reflex >2.0 for Sepsis? Y Laboratory test 10/24/2018 [facility] Cankton 0.31 mmol/ L Low 0.60-1.20 21 finding (315)- - Blood Culture 10/24/2018 [facility] Blood Culture NO GROWTH: 22 (315)- - Aerobic FINAL <SEE NOTE> Blood Culture Anaerobic NO GROWTH: FINAL <SEE NOTE> 23 CBS W/Automated 10/04/2018 [facility] White Blood 7.7 K/ uL Normal 3.4-10.5 24 Diff (315)- - Count Red Blood Count [...] 33.0-73.0 Lymph % 21.4 % Normal 20.0-42.0 [facility] % 11.2 % High 0.0-10.0 Eo% 5.2 % Normal 0.0-6.6 Bas% 0.1 % Normal 0.0-1.1 Immature Grans 0.5 % Normal 0.0-5.0 NRBC % 0.0 /100WBC < 10/ 100 WBC Neut# 4.73 K/uL Normal 1.8-7.0 Lymph # 1.64 K/uL Normal 1.0-4.0 [facility] # 0.86 K/uL High 0.0-0.8 Eos # 0.40 K/uL Normal 0.0-0.5 Baso # 0.01 K/uL Normal 0.0-0.1 Immature Grans Absolute 0.04 K/uL NRBC # 0.00 K/uL Comprehensive 10/04/2018 [facility] Glucose 102 mg/dL Normal 74-106 Metabolic Panel (315)- - BUN 14 mg/dL Normal 7-18 Creatinine 1.3 mg/dL Normal 0.6-1.3 Glom Filtration Rate, Estimate 59 mL/min >60 If >60 mL/min >60 25 BUN/Creat 10.7 ratio Sodium 142 mmol/L Normal [...] 92 U/L Normal 45-117 Laboratory test 10/04/2018 [facility] Troponin-I < 0.015 ng/mL 26 finding (315)- - 1 before visit 03/2019 2 Prolactin Female Normal Values: Pre-menopausal: 3.3-26.7 ng/mL Post-menopausal:2.7-19.6 ng/mL 3 Result amended from (Not Reported) (03/31/2019 1:09 PM) to (6.3) (03/31/2019 1:09 PM) by [facility]. 4 Updated reference range on new analyzer 5 Updated reference range on new analyzer 6 Updated reference range 09-15-2018 7 Updated Reference Range 8 Concerning GFR Guidelines for Americans: Normal function or mild renal disease, if clinically at risk: >/= 60 mL/min Moderately decreased: 30-59 Severely decreased: 15-29 Renal failure: <15 There is reduced accuracy above 60ml/min/1.73 m squared, but the numeric value may be clinically useful in the near 60 range 9 Concerning GFR Guidelines: Normal function or mild [...] drugs that are excreted by the kidneys. 10 Unless otherwise specified, testing performed by [facility] [address] [place] [id number] 11 anytime 12 Prolactin Female Normal Values: Pre-menopausal: 3.3-26.7 ng/mL Post-menopausal:2.7-19.6 ng/mL 13 ASPIRATION PNA 14 Please Note: A POSITIVE result for influenza [...] influenza A and B molecular assay. Method: [employer] Chromatographic immunoassay 15 Note: Persistent reduction for 3 months or more in an eGFR <60 mL/min/1.73 m2 defines CKD. Patients with eGFR values >/=60 mL/min/1.73 m2 may also have CKD if evidence of persistent proteinuria is present. The original MDRD equation for estimated GFR is not valid for patients less than 18 years of age. Additional information may be found at www.kdoqi.org. 16 NO GROWTH: FINAL REPORT 17 NO GROWTH: FINAL REPORT 18 FEVER 19 Note: Persistent reduction for 3 months or more in an eGFR <60 mL/min/1.73 m2 defines CKD. Patients with eGFR values >/=60 mL/min/1.73 m2 may also have CKD if evidence of persistent proteinuria is present. The original MDRD equation for estimated GFR is not valid for patients less than 18 years of age. Additional information may be found at www.kdoqi.org. 20 Specimen slightly Hemolyzed, interpret with caution 21 ASPIRATION PNA 22 NO GROWTH: FINAL REPORT 23 NO GROWTH: FINAL REPORT 24 LOW 02 SAT 25 Note: Persistent reduction for 3 months or more in an eGFR <60 mL/min/1.73 m2 defines CKD. Patients with eGFR values >/=60 mL/min/1.73 m2 may also have CKD if evidence of persistent proteinuria is present. The original MDRD equation for estimated GFR is not valid for patients less than 18 years of age. Additional information may be found at www.kdoqi.org. 26 0.0 - 0.045 ng/mL: Normal 0.046 - 0.5 ng/mL: Suggestive 0.6 - 1.5 ng/mL: Consistent Procedures Date Code Description Status 11/09/2018 55332 Measure Blood Oxygen Level Multiple Determinations Completed 10/29/2018 20774 Measure Blood Oxygen Level Single Determination Completed 10/08/2018 00341 Measure Blood Oxygen Level Single Determination Completed 05/26/2017 028694983 Bone Mineral Density Test Completed Medical Devices Description No Information Available Encounters Type Date Location Provider Dx Diagnosis Office Visit 03/16/2019 [facility] Latonya Luna, S09.90xA Unspecified injury of 4:15p head, initial encounter S00.01xA Abrasion of scalp, initial encounter L20.82 Flexural eczema F84.0 Autistic disorder F79 Unspecified intellectual disabilities S09.90xD Unspecified injury of head, subsequent encounter S00.01xD Abrasion of scalp, subsequent encounter Z68.27 Body mass index (BMI) 27.0-27.9, adult Office Visit 01/26/2019 10:30a [facility] Latonya Luna MD M25.572 Pain in LEFT ankle and joints of LEFT foot Z68.26 Body mass index (BMI) 26.0-26.9, adult Office Visit 12/15/2018 3:00p Latonya Reardon MD J69.0 Pneumonitis due to inhalation of food and vomit E22.1 Hyperprolactinemia Z68.26 Body mass index (BMI) 26.0-26.9, adult Office Visit 11/25/2018 9:30a [facility] Latonya Luna MD R04.0 Epistaxis J30.9 Allergic rhinitis, unspecified N30.00 Acute cystitis without hematuria S80.212A Abrasion, LEFT knee, initial encounter Z68.26 Body mass index (BMI) 26.0-26.9, adult Office Visit 11/09/2018 4:15p [facility] Latonya Luna MD E22.1 Hyperprolactinemia F84.0 Autistic disorder F60.9 Personality disorder, unspecified J69.0 Pneumonitis due to inhalation of food and vomit Z68.27 Body mass index (BMI) 27.0-27.9, adult Office Visit 10/08/2018 3:15p [facility] Latonya Luna MD L20.82 Flexural eczema J44.0 Chr obstructive pulmon disease with (acute) lower resp infct E22.1 Hyperprolactinemia F84.0 Autistic disorder F60.9 Personality disorder, unspecified Z68.28 Body mass index (BMI) 28.0-28.9, adult Assessments Date Code Description Provider 04/05/2019 Z00.01 Encounter for general adult medical Latonya Luna MD examination with abnorma 04/05/2019 L20.82 Flexural eczema Latonya Luna MD 04/05/2019 L20.9 Atopic dermatitis, unspecified Latonya Luan MD 04/05/2019 F84.0 Autistic disorder Latonya Luna [...] Autistic disorder Schedule, Laboratory 03/29/2019 Z79.899 Other senior care (current) drug therapy Schedule, Laboratory 03/29/2019 E22.1 Hyperprolactinemia Latonya Luna MD 03/29/2019 E22.1 Hyperprolactinemia Schedule, Laboratory 03/29/2019 R73.09 Other abnormal glucose Latonya Luna MD 03/29/2019 R73.09 Other abnormal glucose Schedule, Laboratory 03/29/2019 E22.1 Hyperprolactinemia [facility] 03/29/2019 R73.09 Other abnormal glucose [facility] 03/16/2019 S09.90xA Unspecified injury of [...] Z68.26 Body mass index (BMI) 26.0-26.9, adult Latnoya Luna MD 11/25/2018 R04.0 Epistaxis Latonya Luna MD 11/25/2018 J30.9 Allergic rhinitis, unspecified Latonya Luna MD 11/25/2018 N30.00 Acute cystitis without hematuria Latonya uLna MD 11/25/2018 S80.212A Abrasion, LEFT knee, initial encounter Latonya Luna MD 11/25/2018 Z68.26 Body mass index (BMI) 26.0-26.9, adult Latonya Luna MD 11/10/2018 E22.1 Hyperprolactinemia Latonya Luna MD 11/10/2018 E22.1 Hyperprolactinemia Schedule, Laboratory 11/10/2018 E22.1 Hyperprolactinemia [facility] 11/09/2018 E22.1 Hyperprolactinemia Latonya Luna [...] index (BMI) 28.0-28.9, adult Latonya Luna MD Plan of Treatment Future Appointment(s):09/28/2019 8:45 am - Schedule, Laboratory at [facility]2019 9:15 am - Latonya Luna MD at [facility]04/05/2019 - Latonya Luna MDZ00.01 Encounter for general adult medical examination with abnormaComments: Well adult male. medicare physicalWellness form reviewed, no concerns for current living situationDepression screen:upon review of signs and symptoms with exam assessment pt does not appear depressed. He is not able to answer depression screening questions. Functional capacity and daily living skills: upon review of signs and symptoms through direct questioning, pt appears stable and adequately safe to continue in in current living situation.Screening for colon cancer: discussed Screening for prostate cancer discussed as noted. Immunizations reviewd Pneumovax up to date.[id number] doneTetanus booster tdap Zostavax not doneRecommend Shingrix series through the pharmacy --[facility] he is high risk for skin infections if gets this Annual flu vax recommended He has a guardian, his brother Tucker who makes decisions for him. Pt not able to comprehend advanced directives. Encourage annualoptho and periodic dental evaluations. Healthy lifestyle recommendations. Encouraged healthy diet with meats simply prepared, fresh fruits and veg when able also simply prepared, whole grains, 3 dairies per day non fat. Please consume a healthy omega-3 fat with each meal such as nuts, olive oil, avocado, fish. Encouraged daily exercise 30 - 60 min daily/150min per week. Encouraged at least 3 qrts total fluids per day with more for sweaty exercise. Target 7-8 hours of sleep at night. Avoid tobacco and drugsLimit alcohol to none or under 2 per dayWork on your "happy factors", meaning hobbies and things you do day to day. Engaging in a health lifestyle may decrease your risk for illnesses and may improve your quality of lifeFollow up:obtain last psych note Dr Chen; next visit 170-180 days oc15 rtn fu nonfasting labs 5 days adzphE41.82 Flexural eczemaComments:pt with rash in the creases [...] skin dry don't rub. Immediate moisturizers to follow.continues to use hypoallergenic dove soap continue fish oil capsules 1000mg twice daily Target fluids at 3qrts total fluids per day. call if rash flares uphe has been tested for allergies and none foundhe is now using only kerasal, mupirocin to wounds as needed, triamcinolone and vanicream per med list. notes reviewed and corroborated from cloud administrator to ours to house staff med lists.Follow up:Followup:.L20.9 Atopic dermatitis, unspecifiedComments: allergies as notedFollow up:Followup:.F84.0 Autistic disorderNew Labs:Cankton-RL , Ordered: 04/05/19Valproic Acid-RL, Ordered: 04/05/19Comments:autismcare with Dr Chen for helping to manage on multiple meds. Dr Chen orders labs periodicallyekg done 09/2018 elevated prolactin qkeeypudlZ65.9 Personality disorder, unspecifiedComments:care with Dr ChenK59.00 Constipation, unspecifiedComments:constipationcont to target a total of 90 oz per day with thickit, may have more than this---if is constipated add another 16 oz. goal is urinating 6-8 times per day light colored urinethis should help with constipation and skin issues be sure he eats high fiber foods as wellR55 Syncope and collapseComments:better, no further spellsdoing well now, continue home exercise [id number] Unspecified intellectual disabilitiesComments:mental limitations. lives in group homeZ86.61 Personal history of infections of the central nervous systemComments:personal history of encephalitis in rhdvejcziG31.5 Encounter for screening for malignant neoplasm of prostateComments:psa was done 11/20171426M17.11 Encounter for screening for malignant neoplasm of colonComments:Colon cancer screening discussed, has been not recommended to be done due to mental limits, was referred to Dr Hernandez due to constipation, cologuard neg 04/2018H91.93 Unspecified hearing loss, bilateralComments:pt intolerant of hearing aids per staff. he signs for communication, continue to kvxwdwjG68.3 OverweightComments:continue to work on diet, exercise, weight loss he is on a calorie reduced dietdue to constipation and skin issues, 3 qrts total fluids per day recommendedhe gets 1/2 inc food pieces and honey thick liquids with thickener cont to scnnrafY05.1 HyperprolactinemiaNew Labs:Prolactin, Ordered: 04/05/19CBC with Auto Diff-fcmg, Ordered: 04/05/19Comprehensive Met Panel-[facility]CMG, Ordered: 04/05/19Comments:very high prolactin levels, fluctuating, now 60s, prior MRI done adn referred to neuro surg who feltthere was not a tumor , Dr Chen is prescribing meds, olanzipine 15mg and Chlorpromazine 200mg bidwhich may be cause of high prolactin. as long as no symptoms of galactorea will observe.N40.0 Benign prostatic hyperplasia without lower urinary tract symptomsComments:pt with bph, saw Dr Cardoso/D[place], treated with flomax, that was stopped 06/2018, doing well, had uro fu 09/2018.Z68.27 Body mass index (BMI) 27.0-27.9, adultComments: recommend reduced calorie diet and healthy diet and regular exercise to help with weight loss Functional Status Description No Information Available Mental Status Description No Information Available Referrals Description No Information Available
--- OUTSIDE RECORDS SUMMARY | 2019-05-01 09:37 | XMS REPORT | Continuity of Care Document ---
:1955 External Reference #:[id number] Author Name Dami Corrales PA Address [address], [address] [place] [address] Care Team Providers Name Role Phone Latonya Luna MD - Family Care Team Information [employer] [phone] Medicine Problems Active Problems Provider Date Mental retardation Gerardo Rosales MD Onset: 08/26/2015 Adult health examination Gerardo Rosales MD Onset: 08/28/2015 Note: upper to D1 Aug 2015 Social History Type Date Description Comments Sex Unknown Tobacco Use Start: Unknown Never Smoked Cigarettes Smoking Status Reviewed: 03/07/19 Never Smoked Cigarettes ETOH Use Denies alcohol use Tobacco Use Start: Unknown Patient denies history of smoking Recreational Drug Use Denies Drug Use Allergies, Adverse Reactions, Alerts Description No Known Drug Allergies Medications Active Medications SIG Qnty Indications Ordering Date Provider Depakote 1 tab by mouth Unknown 250mg Tablets DR twice a day Kerasal apply topically at Unknown 5-10% Ointment bedtime after bath Triamcinolone Acetonide apply to affected Unknown 0.1% area twice a day Cream Vanicream apply liberally to Unknown Cream affected areas 3-4 times daily as needed Chlorpheniramine Maleate one tablet by Unknown 4mg mouth every 4 hrs Tablets as needed for nose drainage Diabetic Tussin DM 10 milliliters by Unknown mouth every 6 100-10mg/5ML Liquid hours as needed Fish Oil [place]-3 1 tabs by mouth Unknown 1000mg twice a day Capsules Miralax 255gm with 64 oz Unknown Powder of what ever she wants to drink and drink it all Singulair 1 by mouth every Unknown 10mg Tablets day Claritin 1 by mouth every Unknown 10mg Capsules day Triple Antibiotic + Pain Unknown Relief Ointment Olanzapine 1 tab qd Unknown 15mg Tablets Dispers Mylanta 1 tablespoon by Unknown [phone]/5ML mouth every 4 Suspension hours as needed Kaopectate 2 tablespoon by Unknown 262mg/15ML mouth after each Suspension loose bm as needed Ibuprofen 1 tab every 6 Unknown 400mg Tablets hours as needed Colace 1 by mouth twice a Unknown 100mg Capsules day Benefiber as directed daily Unknown Powder Chlorpromazine HCL 3 tabs by mouth Unknown 100mg every morning, 2 Tablets tabs every hs [place] Carbonate take one capsule Unknown 300mg by mouth twice a Capsules day Immunizations Description No Information Available Vital Signs Date Vital Result Comment 03/23/2019 8:34am BP Systolic 162 mmHg BP Diastolic 84 mmHg Body Temperature 96.9 F Tympanic Heart Rate 87 /min Respiratory Rate 16 /min Weight 176.00 lb O2 % BldC Oximetry 95 % Pain Level 0 Pt does not appear to be in pain 09/15/2018 8:49am Body Temperature 96.1 F Heart Rate 62 /min Respiratory Rate 16 /min Weight 177.00 lb O2 % BldC Oximetry 95 % Ra Pain Level 0 Results Test Acquired Date Facility Test Result H/L Range Note Urine Dipstick 03/23/2019 [facility]a Color Yellow Yellow Ua Clarity Clear Clear Ua Leuko Negative Negative Ua Nitrite Negative Negative Ua Urobilinogen 0.2 0.2 - 1.0 E.U./dL Ua Protein Negative Negative Ua PH 7.0 6.5-7.5 Ua Blood Negative Negative Ua Specific [place] 1.005 Low 1.010-1.030 Ua Ketones Negative Negative Ua Bilirubin Negative Negative Ua Glucose Negative Negative Procedures Date Code Description Status 03/23/2019 67705 Measurement Post Voiding Residual Urine By Completed Ultrasound,Non-Imaging Medical Devices Description No Information Available Encounters Type Date Location Provider Dx Diagnosis Office Visit 03/23/2019 Urology Dami Corrales, R33.9 Retention of urine, 8:30a PA unspecified Assessments Date Code Description Provider 03/23/2019 R33.9 Retention of urine, unspecified Dami Corrales PA 10/27/2018 J69.0 Pneumonitis due to inhalation of food and [place], M.D. vomit 10/27/2018 R13.10 Dysphagia, unspecified KangG[place]na, M.D. 10/27/2018 F73 Profound intellectual disabilities Glenna Kang, M.D. 10/27/2018 J96.01 Acute respiratory failure with hypoxia Glenna Kang, M.D. 10/26/2018 J69.0 Pneumonitis due to inhalation of food and Kang[place], M.D. vomit 10/26/2018 R13.10 Dysphagia, unspecified Kang[place], M.D. 10/26/2018 F73 Profound intellectual disabilities Glenna Kang, M.D. 10/26/2018 J96.01 Acute respiratory failure with hypoxia Glenna Kang, M.D. 10/25/2018 J69.0 Pneumonitis due to inhalation of food and Irina Dawkins MD vomit 10/25/2018 R50.9 Fever, unspecified Irina Dawkins MD 10/25/2018 J96.01 Acute respiratory failure with hypoxia Irina Dawkins MD 10/25/2018 Z99.81 Dependence on supplemental oxygen Irina Dawkins MD 10/24/2018 J69.0 Pneumonitis due to inhalation of food and Irina Dawkins MD vomit 10/24/2018 R50.9 Fever, unspecified Irina Dawkins MD 10/24/2018 R13.10 Dysphagia, unspecified Irina Dawkins MD 10/24/2018 F73 Profound intellectual disabilities Irina Dawkins MD Plan of Treatment Future Appointment(s):09/21/2019 8:30 am - Dami Corrales PA at [id number] - Dami Corrales, PAR33.9 Retention of urine, unspecifiedComments: No signs of retention. Call for his review. Follow-up 6 months Functional Status Description No Information Available Mental Status Description No Information Available Referrals Description No Information Available
[2019-05-01 09:43] VITALS: BP 130/76
--- NOTE | 2019-05-01 09:48 | UC ---
Respiratory Complaint HPI - HPI Summary HPI Summary: 64 year old non-verbal male presents with a quantitative software engineer from his facility (does not know the patient well) with a complaint of sinus congestion, rhinorrhea and poor sleep for the past 2-3 days. He has not had a fever, no cough nor respiratory distress. No acute change in his mental status. - History of Current Complaint Chief Complaint: UCGeneralIllness Stated Complaint: COUGH/CONGESTION/FATIGUE Time Seen by Provider: 05/01/19 09:36 Hx Obtained From: Family/Cnc Service Engineer Pain Intensity: 0 - Allergies/Home Medications Allergies/Adverse Reactions: Allergies Allergy/AdvReac Type Severity Reaction Status Date / Time No Known Allergies Allergy Verified 05/01/19 09:38 PMH/Surg Hx/FS Hx/Imm Hx Previously Healthy: Yes Psychological History: Other - Mental Health Issues - Surgical History Surgical History: Yes Surgery Procedure, Year, and Place: cataract. septoplasty - Family History Known Family History: Positive: Unknown, Other - PT WITH SEVERE MR, UNABLE TO PROVIDE FAMILY HISTORY. NONE PER STAFF - Social History Lives: Assisted Living Alcohol Use: None Substance Use Type: None Smoking Status (MU): Never Smoked Tobacco Review of Systems All Other Systems Reviewed And Are Negative: Yes Constitutional: Positive: Negative Skin: Positive: Negative Eyes: Positive: Negative ENT: Positive: Epistaxis - slight episode last night per quantitative software engineer Respiratory: Positive: Negative Cardiovascular: Positive: Negative Gastrointestinal: Positive: Negative Genitourinary: Positive: Negative Motor: Positive: Negative Neurovascular: Positive: Negative Musculoskeletal: Positive: Negative Neurological: Positive: Negative Psychological: Positive: Other - at baseline, unable to communicate Physical Exam Triage Information Reviewed: Yes Appearance: Well-Appearing, No Pain Distress, Well-Nourished Vital Signs: Initial Vital Signs Temp 97.8 F 05/01/19 09:38 Pulse 77 05/01/19 09:38 Resp 18 05/01/19 09:38 BP 130/76 05/01/19 09:38 Pulse Ox 95 05/01/19 09:38 Vital Signs Reviewed: Yes ENT: Positive: Normal ENT inspection, Pharynx normal, TMs normal. Negative: Nasal drainage, Sinus tenderness Neck: Positive: Supple, Nontender, No Lymphadenopathy Respiratory: Positive: Lungs clear, Normal breath sounds, No respiratory distress. Negative: Crackles, Rhonchi, Wheezing Cardiovascular: Positive: RRR, No Murmur Abdomen Description: Positive: Nontender, Soft Musculoskeletal: Positive: ROM Intact Neurological: Positive: Alert. Negative: Lethargic Psychological: Positive: Other: - normal baseline per quantitative software engineer Skin Exam: Normal Respiratory Course/Dx - Differential Dx/Diagnosis Provider Diagnosis: Upper respiratory infection, viral Discharge ED - Sign-Out/Discharge Documenting (check all that apply): Patient Departure All imaging exams completed and their final reports reviewed: No Studies - Discharge Plan Condition: Stable Disposition: HOME Patient Education Materials: Upper Respiratory Infection (ED) Referrals: Latonya Luna MD [Primary Care Provider] - Additional Instructions: Monitor for fever, respiratory distress, productive cough or change in mental status. Recommend acetaminophen as needed for discomfort and Vaseline to nostrils as needed for dryness. Follow-up with his Primary Care Physician if symptoms persist or worsen. - Billing Disposition and Condition Condition: STABLE Disposition: Home
== END 2019-05-01 10:12 | disposition home or self-care (01) ==
LOC: UCCORT 09:09
DX: J06.9 Acute upper respiratory infection, unspecified (principal)
CPT/HCPCS: 99212; G0463